=== PATIENT | female | born 1955 | race African-American/Black ===

== ENCOUNTER → 2018-01-11 | Outpatient (CLI) | payer OTHER ==
[2018-01-11] MEDS: IOHEXOL 240 MG/ML 50ML VIAL. PO (10:37)
[2018-01-11] MEDS: IOHEXOL 300 MG/ML 100ML VIAL. IV (10:38)
== END | disposition home or self-care (01) ==
LOC: CT 08:43
DX: C50.911 Malignant neoplasm of unspecified site of right female breast (principal); K57.30 Diverticulosis of large intestine without perforation or abscess without bleeding; R74.0 Nonspecific elevation of levels of transaminase and lactic acid dehydrogenase [LDH]; Z17.1 Estrogen receptor negative status [ER-]; Z90.11 Acquired absence of right breast and nipple
CPT/HCPCS: 71260; 74177; Q9966; Q9967

== ENCOUNTER → 2018-02-02 | Outpatient (CLI) | payer OTHER ==
[2018-02-02] MEDS: GADOBUTROL 10 MMOL/10 ML VIAL IV (10:14)
== END | disposition home or self-care (01) ==
LOC: MRI 09:10
DX: R74.8 Abnormal levels of other serum enzymes (principal); Z85.3 Personal history of malignant neoplasm of breast
CPT/HCPCS: 74183; A9585

== ENCOUNTER → 2018-08-10 | Outpatient (CLI) | payer OTHER ==
[2015-12-06 12:40] VITALS: BP 137/78
[~2018-08-10] MED LIST: CHOL2000 PO; FEXO180T81 PO; IOHEXOL 300 MG/ML 100ML VIAL. IV ONE; LORA10TA68 PO; OXYC-323 PO; POTA20TA12 PO; TRIA1CAP3 PO
--- NOTE | 2018-08-10 10:39 | RAD ---
CT of the chest with contrast, 08/10/2018: HISTORY: Follow-up right breast cancer with mastectomy Multidetector CT imaging was performed following an IV bolus injection of iodinated contrast material. Comparison is made to a study from 01/11/2018. There are scattered reticular opacities in the periphery of both lungs likely due to scarring. A more focal 1.9 cm mixed groundglass and solid opacity in the medial aspect of the right upper lobe is unchanged. There are subpleural parenchymal opacities in the anterior aspect of the right middle lobe with mild underlying traction bronchiectasis. These are unchanged and are likely related to previous radiation therapy. No new or enlarging pulmonary opacities are seen. There is no evidence of pleural fluid. The right breast is surgically absent. There is a surgical clip in the right axilla. No axillary adenopathy is seen. There is an unchanged 9 mm nodule in the anterior mediastinum. A pretracheal lymph node measuring 9 mm in short axis dimension is also unchanged. No definite mediastinal, hilar or internal mammary adenopathy is evident. There is a large calcified subcarinal lymph node. There is mild generalized cardiomegaly. There are scattered calcified aortic plaques as well as minimal coronary artery calcification. A 1.1 cm subcapsular low-density lesion in the lateral aspect of the right lobe of the liver is unchanged since 01/11/2018. There are mild scattered degenerative changes in the spine. IMPRESSION: 1. Moderate bilateral pleural/parenchymal scarring, including subpleural scarring in the right middle lobe due to previous radiation therapy. 2. Unchanged medial right upper lobe subpleural opacity also likely representing scarring. 3. No new chest abnormality is detected. PQRS Compliance Statement: One or more of the following individualized dose reduction techniques were utilized for this examination: 1. Automated exposure control 2. Adjustment of the mA and/or kV according to patient size 3. Use of iterative reconstruction technique Electronically signed by: Judson Bonilla MD (08/10/2018 10:35 AM) [facility]
== END | disposition home or self-care (01) ==
LOC: CT 08:14
PROVIDERS: ATTEND Internal Medicine Hematology & Oncology
DX: R91.8 Other nonspecific abnormal finding of lung field (principal); I25.10 Atherosclerotic heart disease of native coronary artery without angina pectoris; I51.7 Cardiomegaly; M47.894 Other spondylosis, thoracic region; Z85.3 Personal history of malignant neoplasm of breast; Z92.3 Personal history of irradiation; Z87.891 Personal history of nicotine dependence; Z90.11 Acquired absence of right breast and nipple
CPT/HCPCS: 71260; Q9967

== ENCOUNTER 2020-01-03 21:06 | Inpatient (IN) | payer OTHER ==
[~2020-01-03] VITALS: Ht 167.6 cm; Wt 91.7 kg
[~2020-01-03 21:06] MED LIST changes: -IOHEXOL 300 MG/ML 100ML VIAL. IV ONE; +OMEG1CAP6 PO; -OXYC-323 PO; +OXYC1TAB15 PO
--- NOTE | 2020-01-03 21:25 | PHYS DOC ---
Past Medical History Past Medical History: Cancer, Hypertension Additional Past Medical Histor: BREAST CANCER Past Surgical History: Hysterectomy, Tubal ligation, Other Additional Past Surgical Histo: RIGHT MASECTOMY, COLONOSCOPY Smoking Status: Former Smoker Alcohol Use: None Drug Use: None Adult General Chief Complaint Chief Complaint: NAUSEA/VOMITING/DIARRHA HPI HPI Patient is a 64 year old -[place] female who presents with complaint nausea and vomiting since 1:00 this afternoon. Emesis x3 with some epigastric abdominal pain. No fever, chills, diarrhea, constipation. No medications taken prior to arrival. History of gastritis and hypertension and breast cancer in remission x5 years. No sick contacts and no other history of intra-abdominal problems. Review of Systems Review of Systems All other systems were reviewed and found to be within normal limits, except as documented in this note. Current Medications Current Medications Current Medications Medications (Trade) Dose Ordered Sig/Amrit Start Time Stop Time Status Last Admin Dose Admin Diltiazem HCl (Cardizem Iv Push) 10 mg 1X ONCE 01/03/20 22:00 01/03/20 22:01 DC 01/03/20 21:54 10 MG Morphine Sulfate (Morphine Sulfate) 2 mg 1X ONCE 01/03/20 22:30 01/03/20 22:31 Multi-Ingredient Mouthwash/Gargle (Gi Cocktail) 20 ml 1X ONCE 01/03/20 22:00 01/03/20 22:01 DC 01/03/20 21:52 20 ML Ondansetron HCl (Zofran) 4 mg 1X ONCE 01/03/20 22:00 01/03/20 22:01 DC 01/03/20 21:53 4 MG Sodium Chloride 1,000 ml @ 1,000 mls/hr 1X ONCE 01/03/20 21:30 01/03/20 22:29 01/03/20 21:52 1,000 MLS/HR Allergies Allergies Allergies Coded Allergies Type Severity Reaction Last Updated Verified penicillin Allergy Severe Anaphylaxis 12/06/15 Yes pineapple Allergy Severe SWELLING IN MOUTH 12/06/15 Yes Physical Exam Physical Exam Constitutional: Well developed, well nourished, no acute distress, non-toxic appearance. [] HENT: Normocephalic, atraumatic, bilateral external ears normal, oropharynx moist, no oral exudates, nose normal. [] Eyes: PERRLA, EOMI, conjunctiva normal, no discharge. [] Neck: Normal range of motion, no tenderness, supple, no stridor. [] Cardiovascular:Heart rate regular rhythm, no murmur [] Lungs & Thorax: Bilateral breath sounds clear to auscultation [] Abdomen: Bowel sounds normal, soft, mild epigastric TTP, no masses, no pulsatile masses. [] Skin: Warm, dry, no erythema, no rash. [] Back: No tenderness, no CVA tenderness. [] Extremities: No tenderness, no cyanosis, no clubbing, ROM intact, no edema. [] Neurologic: Alert and oriented X 3, normal motor function, normal sensory function, no focal deficits noted. [] Psychologic: Affect normal, judgement normal, mood normal. [] Current Patient Data Vital Signs Vital Signs Date Time Temp Pulse Resp B/P (MAP) Pulse Ox O2 Delivery O2 Flow Rate FiO2 01/03/20 21:54 130 139/86 Lab Values Laboratory Tests Test 01/03/20 21:25 White Blood Count 17.8 x10^3/uL (4.0-11.0) H Red Blood Count 6.59 x10^6/uL (3.50-5.40) H Hemoglobin 15.0 g/dL (12.0-15.5) Hematocrit 46.8 % (36.0-47.0) Mean Corpuscular Volume 71 fL (79-100) L Mean Corpuscular Hemoglobin 23 pg (25-35) L Mean Corpuscular Hemoglobin Concent 32 g/dL (31-37) Red Cell Distribution Width 16.4 % (11.5-14.5) H Platelet Count 293 x10^3/uL (140-400) Neutrophils (%) (Auto) 92 % (31-73) H Lymphocytes (%) (Auto) 6 % (24-48) L Monocytes (%) (Auto) 2 % (0-9) Eosinophils (%) (Auto) 0 % (0-3) Basophils (%) (Auto) 0 % (0-3) Neutrophils # (Auto) 16.4 x10^3/uL (1.8-7.7) H Lymphocytes # (Auto) 1.0 x10^3/uL (1.0-4.8) Monocytes # (Auto) 0.3 x10^3/uL (0.0-1.1) Eosinophils # (Auto) 0.0 x10^3/uL (0.0-0.7) Basophils # (Auto) 0.0 x10^3/uL (0.0-0.2) Segmented Neutrophils % 72 % (35-66) H Band Neutrophils % 12 % (0-9) H Lymphocytes % 10 % (24-48) L Monocytes % 6 % (0-10) Toxic Granulation Slight Toxic Vacuolation Slight Platelet Estimate Adequate (ADEQUATE) Polychromasia Slight Prothrombin Time 14.1 SEC (11.7-14.0) H Prothrombin Time INR 1.1 (0.8-1.1) Activated Partial Thromboplast Time 33 SEC (24-38) Sodium Level 142 mmol/L (136-145) Potassium Level 3.6 mmol/L (3.5-5.1) Chloride Level 101 mmol/L (98-107) Carbon Dioxide Level 28 mmol/L (21-32) Anion Gap 13 (6-14) Blood Urea Nitrogen 11 mg/dL (7-20) Creatinine 0.9 mg/dL (0.6-1.0) Estimated GFR (Cockcroft-Gault) 76.5 BUN/Creatinine Ratio 12 (6-20) Glucose Level 146 mg/dL (70-99) H Calcium Level 9.1 mg/dL (8.5-10.1) Total Bilirubin 1.0 mg/dL (0.2-1.0) Aspartate Amino Transferase (AST) 37 U/L (15-37) Alanine Aminotransferase (ALT) 44 U/L (14-59) Alkaline Phosphatase 119 U/L (46-116) H Troponin I Quantitative 0.036 ng/mL (0.000-0.055) Total Protein 7.0 g/dL (6.4-8.2) Albumin 3.5 g/dL (3.4-5.0) Albumin/Globulin Ratio 1.0 (1.0-1.7) Lipase 62 U/L (73-393) L Laboratory Tests 01/03/20 21:25 Laboratory Tests 01/03/20 21:25 EKG EKG EKG appears to show atrial fibrillation with a heart rate of 143. [] Radiology/Procedures Radiology/Procedures [] Course & Med Decision Making Course & Med Decision Making Pertinent Labs and Imaging studies reviewed. (See chart for details) 8: Patient is seen for nausea and vomiting. Ordered IV fluids and will check labs and give GI cocktail. Patient's EKG is performed and appears to show atrial fibrillation with a heart rate of 143 so she will receive 10 mg of Cardizem. She has no reported history of atrial fibrillation. 2220: Patient's work-up is complete except chest x-ray which I will follow-up on; she appears to have atrial fibrillation with RVR. She was given a 10 mg bolus of Cardizem with some improvement in rate but it is starting to increase again so we will start a Cardizem drip on her. She will be admitted to the [facility] and will consult cardiology. Sundar for nausea. Dragon Disclaimer Dragon Disclaimer This electronic medical record was generated, in whole or in part, using a voice recognition dictation system. Departure Departure Impression: Primary Impression: Atrial fibrillation with RVR Additional Impression: Nausea & vomiting Disposition: ADMITTED INPATIENT Admitting Physician: GOLDIE Condition: STABLE Referrals: LEVI KEVIN DO (PCP) Problem Qualifiers RON OLMOS DO Jan 03, 2020 21:25
[2020-01-03] MEDS ORDERED: IV NORMAL SALINE 1000ML BAG 1,000 ML IV ONE (21:30)
[2020-01-03 21:33] LABS: BASO % 0 % (0-3); EOS % 0 % (0-3); HEMATOCRIT 46.8 % (36.0-47.0); LYMPH % 6 % (24-48); MEAN CORPUSCULAR HEMOGLOBIN 23 pg (25-35); MEAN CORPUSCULAR HGB CONC 32 g/dL (31-37); MEAN CORPUSCULAR VOLUME 71 fL (79-100); MONO # 0.3 x10^3/uL (0.0-1.1); MONO % 2 % (0-9); NEUT # 16.4 x10^3/uL (1.8-7.7); NEUT % 92 % (31-73); PLATELET COUNT 293 x10^3/uL (140-400); RED BLOOD COUNT 6.59 x10^6/uL (3.50-5.40); RED CELL DISTRIBUTION WIDTH 16.4 % (11.5-14.5); WHITE BLOOD COUNT 17.8 x10^3/uL (4.0-11.0)
[2020-01-03 21:41] LABS: CALCIUM 9.1 mg/dL (8.5-10.1); CREATININE 0.9 mg/dL (0.6-1.0); GFR 76.5; POTASSIUM 3.6 mmol/L (3.5-5.1)
[2020-01-03 21:48] LABS: ALBUMIN 3.5 g/dL (3.4-5.0)
[2020-01-03 21:52] LABS: % BANDS 12 % (0-9); % LYMPHS 10 % (24-48); % MONOS 6 % (0-10); % SEGS 72 % (35-66)
[2020-01-03 21:54] LABS: PLT ESTIMATE ADEQUATE (ADEQUATE); POLYCHROMASIA SLIGHT; TOXIC GRANULATION SLIGHT; TOXIC VACUOLATION SLIGHT
[2020-01-03] MEDS ORDERED: LIDO:MAALOX 1:1 20 ML SINGLE DOSE. SWSW ONE (22:00)
[2020-01-03] MEDS ORDERED: dilTIAZem IV PUSH 25 MG/5 ML VIAL IVP ONE (22:00)
[2020-01-03] MEDS ORDERED: ONDANSETRON PF 4 MG/2 ML VIAL. IVP ONE (22:00)
[2020-01-03 22:13] LABS: PROTHROMBIN TIME PATIENT 14.1 SEC (11.7-14.0)
[2020-01-03] MEDS ORDERED: MORPHINE SULFATE 2 MG/ML VIAL. IV ONE (22:30)
[2020-01-03] MEDS: dilTIAZem INJ 125 MG in IV NORMAL SALINE 100ML 100 ML IV PRN ×2 (22:32→22:34)
--- NOTE | 2020-01-03 22:51 | RAD ---
Single view chest dated 01/03/2020. Comparison made to 08/10/2018. Clinical data indication: Atrial fibrillation. FINDINGS: Single upright portable exam performed. Heart size is mildly enlarged, stable. There is elevation of right hemidiaphragm. Mildly prominent interstitial markings at both lung bases, unchanged. There is also some groundglass nodularity at the right mid zone and perihilar region, similar. No apparent pleural effusion or pneumothorax. IMPRESSION: 1. No acute radiographic abnormality. Bibasilar interstitial changes with groundglass nodular opacity in the right lung, similar to recent exam. Electronically signed by: Edwin Hernandez MD (01/03/2020 10:48 PM) [id number]
[2020-01-03 23:14] VITALS: BP 140/89
[2020-01-03] MEDS ORDERED: OMEP20CA16 PO (23:40)
[2020-01-03] MEDS ORDERED: POTA10TA12 PO (23:43)
[2020-01-03] MEDS: IV NORMAL SALINE 1000ML BAG 1,000 ML IV SCH (23:51)
[2020-01-04] VITALS (11 sets, daily range): BP systolic 96–175; BP diastolic 78–104
[2020-01-04] MEDS: ONDANSETRON PF 4 MG/2 ML VIAL. IV PRN ×3 (03:53→20:32)
[2020-01-04 04:05] LABS: BILIRUBIN,URINE SMALL (NEG); CLARITY,URINE CLEAR; COLOR,URINE YELLOW; NITRITE,URINE NEGATIVE (NEG); PH,URINE 6.5 (<5.0-8.0); PROTEIN,URINE 30 mg/dL (NEG-TRACE)
[2020-01-04 04:12] LABS: BACTERIA,URINE FEW /HPF (0-FEW); RBC,URINE RARE /HPF (0-2); SQUAMOUS EPITHELIAL CELL,UR FEW /LPF; WBC,URINE RARE /HPF (0-4)
--- NOTE | 2020-01-04 06:18 | EKG ---
[facility] [address] [place] [address] Test Date: 2020-01-03 Test Time: 21:30:18 Pat Name: AGNES BRAVO Department: Room: Gender: F Health Data Analyst: : 1955 Requested By: RON OLMOS Order Number: [id number] Reading MD: Measurements Intervals [place] Rate: 143 P: 0 NM: 182 QRS: -45 QRSD: 86 T: 174 QT: 228 QTc: 356 Interpretive Statements SINUS TACHYCARDIA ABNORMAL LEFT AXIS DEVIATION R-S TRANSITION ZONE IN V LEADS DISPLACED TO THE LEFT LEFT ANTERIOR FASCICULAR BLOCK INCOMPLETE RIGHT BUNDLE BRANCH BLOCK QRS(T) CONTOUR ABNORMALITY CONSIDER ANTEROSEPTAL MYOCARDIAL DAMAGE T ABNORMALITY IN HIGH LATERAL LEADS ABNORMAL ECG No previous ECG available for comparison
[2020-01-04 08:46] LABS: HEMATOCRIT 44.1 % (36.0-47.0); HEMOGLOBIN 13.6 g/dL (12.0-15.5); RED BLOOD COUNT 6.23 x10^6/uL (3.50-5.40); RED CELL DISTRIBUTION WIDTH 16.5 % (11.5-14.5); WHITE BLOOD COUNT 14.8 x10^3/uL (4.0-11.0)
[2020-01-04 08:52] LABS: CALCIUM 8.5 mg/dL (8.5-10.1); CREATININE 0.8 mg/dL (0.6-1.0); GFR 87.7; MAGNESIUM 1.6 mg/dL (1.8-2.4); POTASSIUM 3.6 mmol/L (3.5-5.1)
[2020-01-04] MEDS: CETIRIZINE HCL 10 MG TABLET. PO SCH (10:00)
[2020-01-04] MEDS ORDERED: TRIAMTERENE/HCTZ 37.5/25MG TABLET. PO SCH (10:00)
[2020-01-04] MEDS ORDERED: MAGNESIUM SULFATE 2GM 50 ML IV ONE (10:15)
[2020-01-04] MEDS ORDERED: METOPROLOL TART IMMED RELEASE 25 MG TABLET. PO ONE (10:15)
[2020-01-04] MEDS ORDERED: ASPIRIN ENTERIC COATED 325 MG TABLET.DR. PO ONE (10:15)
[2020-01-04] MEDS: OMEGA-3 FATTY ACIDS/FISH OIL 1,000 MG CAPSULE. PO SCH (10:37)
[2020-01-04] MEDS: PANTOPRAZOLE 40 MG TABLET.DR. PO SCH (10:37)
[2020-01-04 10:43] LABS: CHOLESTEROL/HDL RATIO 3.1
--- NOTE | 2020-01-04 11:27 | PDOC2 ---
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 Reports no diarrhea but her vomiting started 1 hour after eating su and eggs in the morning since then she vomiting 3 more times with the last one when she was in ED and was given zofran and no vomiting overnight.Her abd pain is diffuse and mainly occurred after retching in the morning yesterday. Denies any fever or chills. In the last week she has been feeling more fatigue, tired and actually having DERAS. Denies any chest pain or sensation of palpitations or frequent dizziness. Denies any recent falls or injury. She lives alone but has been noted before for snoring but denies any daytime somnolence and sleeps about 8-10 hours a night. No insomnia no anxiety or depression. Denies any prior hx of arrhythmia, AMILCAR, CAD, VTE or CVA. She does take maxide for her HTN and was cut in half within the last week due to her fatigue with her PCP thinking it maybe due to low K but denies any cramps and was placed back to full dose due to BP was going up. Upon admission in ED she was noted with AFIB RVR and treated with cardizem drip. Denies any exertional CP and no significant wt loss. Appetite has been good till yesterday. No new meds. No leg swelling or pain. PAST MEDICAL HISTORY Cardiovascular: HTN, Other (chronic lymphedema to right arm) Pulmonary: Other (Moderate bilateral pleural/parenchymal scarring, including subpleural scarring in the right middle lobe due to previous radiation therapy.Unchanged medial right upper lobe subpleural opacity also likely representing scarring per CT chest 08/10/2018 ) CENTRAL NERVOUS SYSTEM: Other (No pertinent history) GI: Diverticulosis, GERD Heme/Onc: No pertinent hx Hepatobiliary: No pertinent hx Psych: No pertinent hx Musculoskeletal: Osteoarthritis Rheumatologic: No pertinent hx Infectious disease: No pertinent hx ENT: Allergic Rhinitis Renal/: No pertinent hx Endocrine: No pertinent hx Dermatology: No pertinent hx PAST SURGICAL HISTORY Past Surgical History: Mastectomy (right with lymph node dissection also with chemo and radiation, been in remission since ), Other (portacath placement and removal 2016) FAMILY HISTORY Family History: Other (sister with AFIB at 65) SOCIAL HISTORY Smoke: Quit (45 pk yr quit 2014) ALCOHOL: rare Drugs: None Lives: Alone CURRENT MEDICATIONS CURRENT MEDICATIONS Current Medications Medications (Trade) Dose Ordered Sig/Amrit Route PRN Reason Start Time Stop Time Status Last Admin Dose Admin Sodium Chloride 1,000 ml @ 1,000 mls/hr 1X ONCE IV 01/03/20 21:30 01/03/20 22:29 DC 01/03/20 21:52 Ondansetron HCl (Zofran) 4 mg 1X ONCE IVP 01/03/20 22:00 01/03/20 22:01 DC 01/03/20 21:53 Multi-Ingredient Mouthwash/Gargle (Gi Cocktail) 20 ml 1X ONCE SWSW 01/03/20 22:00 01/03/20 22:01 DC 01/03/20 21:52 Diltiazem HCl (Cardizem Iv Push) 10 mg 1X ONCE IVP 01/03/20 22:00 01/03/20 22:01 DC 01/03/20 21:54 Morphine Sulfate (Morphine Sulfate) 2 mg 1X ONCE IV 01/03/20 22:30 01/03/20 22:31 DC 01/03/20 22:21 Diltiazem HCl 125 mg/Sodium Chloride 125 ml @ 5 mls/hr CONT PRN IV SEE I/O RECORD 01/03/20 22:30 01/04/20 10:17 DC 01/03/20 22:34 Ondansetron HCl (Zofran) 4 mg PRN Q8HRS PRN IV NAUSEA/VOMITING 1ST CHOICE 01/03/20 22:30 01/04/20 22:29 01/04/20 03:53 Sodium Chloride 1,000 ml @ 75 mls/hr [id number] IV 01/03/20 23:00 01/04/20 22:59 01/03/20 23:51 Fish Oil (Fish Oil) 1,000 mg DAILY PO 01/04/20 10:00 01/04/20 10:37 Pantoprazole Sodium (Protonix) 40 mg DAILYAC PO 01/04/20 11:30 3/18/20 10:37 Metoprolol Tartrate (Lopressor) 25 mg 1X ONCE PO 01/04/20 10:15 01/04/20 10:32 DC 01/04/20 10:37 Aspirin (Ecotrin) 325 mg 1X ONCE PO 01/04/20 10:15 01/04/20 10:32 DC 01/04/20 10:37 ALLERGIES ALLERGIES: Coded Allergies: penicillin (Verified Allergy, Severe, Anaphylaxis, 12/06/15) pineapple (Verified Allergy, Severe, SWELLING IN MOUTH, 12/06/15) ROS Review of System 14 point ROS evaluated with pertinent positives noted per HPI PHYSICAL EXAM General: Alert, Oriented X3, Cooperative, No acute distress HEENT: Atraumatic, Mucous membr. moist/pink Lungs: Clear to auscultation, Normal air movement Heart: Other (AFIB RVR) Abdomen: Soft, Other (mild diffuse tenderness) Extremities: No cyanosis, No edema Skin: No breakdown, No significant lesion Neuro: Normal speech, Sensation intact Psych/Mental Status: Mental status NL, Mood NL MUSCULOSKELETAL: Osteoarthritic changes both hands VITALS/I&O VITALS/I&O: Vital Signs Date Time Temp Pulse Resp B/P (MAP) Pulse Ox O2 Delivery O2 Flow Rate FiO2 01/04/20 10:37 94 117/87 01/04/20 08:00 Room Air 01/04/20 07:20 98.1 18 91 98.1 I & O 01/03/20 01/03/20 01/04/20 15:00 23:00 07:00 Intake Total 1000 ml 120 ml Output Total 200 ml Balance 1000 ml -80 ml LABS Lab: Laboratory Tests Test 01/03/20 21:25 01/04/20 00:01 01/04/20 03:45 01/04/20 06:12 White Blood Count 17.8 x10^3/uL (4.0-11.0) H 14.8 x10^3/uL (4.0-11.0) H Red Blood Count 6.59 x10^6/uL (3.50-5.40) H 6.23 x10^6/uL (3.50-5.40) H Hemoglobin 15.0 g/dL (12.0-15.5) 13.6 g/dL (12.0-15.5) Hematocrit 46.8 % (36.0-47.0) 44.1 % (36.0-47.0) Mean Corpuscular Volume 71 fL (79-100) L 71 fL (79-100) L Mean Corpuscular Hemoglobin 23 pg (25-35) L 22 pg (25-35) L Mean Corpuscular Hemoglobin Concent 32 g/dL (31-37) 31 g/dL (31-37) Red Cell Distribution Width 16.4 % (11.5-14.5) H 16.5 % (11.5-14.5) H Platelet Count 293 x10^3/uL (140-400) 283 x10^3/uL (140-400) Neutrophils (%) (Auto) 92 % (31-73) H Lymphocytes (%) (Auto) 6 % (24-48) L Monocytes (%) (Auto) 2 % (0-9) Eosinophils (%) (Auto) 0 % (0-3) Basophils (%) (Auto) 0 % (0-3) Neutrophils # (Auto) 16.4 x10^3/uL (1.8-7.7) H Lymphocytes # (Auto) 1.0 x10^3/uL (1.0-4.8) Monocytes # (Auto) 0.3 x10^3/uL (0.0-1.1) Eosinophils # (Auto) 0.0 x10^3/uL (0.0-0.7) Basophils # (Auto) 0.0 x10^3/uL (0.0-0.2) Segmented Neutrophils % 72 % (35-66) H Band Neutrophils % 12 % (0-9) H Lymphocytes % 10 % (24-48) L Monocytes % 6 % (0-10) Toxic Granulation Slight Toxic Vacuolation Slight Platelet Estimate Adequate (ADEQUATE) Polychromasia Slight Prothrombin Time 14.1 SEC (11.7-14.0) H Prothrombin Time INR 1.1 (0.8-1.1) Activated Partial Thromboplast Time 33 SEC (24-38) Sodium Level 142 mmol/L (136-145) 142 mmol/L (136-145) Potassium Level 3.6 mmol/L (3.5-5.1) 3.6 mmol/L (3.5-5.1) Chloride Level 101 mmol/L (98-107) 103 mmol/L (98-107) Carbon Dioxide Level 28 mmol/L (21-32) 27 mmol/L (21-32) Anion Gap 13 (6-14) 12 (6-14) Blood Urea Nitrogen 11 mg/dL (7-20) 12 mg/dL (7-20) Creatinine 0.9 mg/dL (0.6-1.0) 0.8 mg/dL (0.6-1.0) Estimated GFR (Cockcroft-Gault) 76.5 87.7 BUN/Creatinine Ratio 12 (6-20) Glucose Level 146 mg/dL (70-99) H 130 mg/dL (70-99) H Calcium Level 9.1 mg/dL (8.5-10.1) 8.5 mg/dL (8.5-10.1) Total Bilirubin 1.0 mg/dL (0.2-1.0) Aspartate Amino Transferase (AST) 37 U/L (15-37) Alanine Aminotransferase (ALT) 44 U/L (14-59) Alkaline Phosphatase 119 U/L (46-116) H Troponin I Quantitative 0.036 ng/mL (0.000-0.055) 0.049 ng/mL (0.000-0.055) 0.033 ng/mL (0.000-0.055) OP-Rre-S-Type Natriuretic Peptide 3429 pg/mL (0-124) H Total Protein 7.0 g/dL (6.4-8.2) Albumin 3.5 g/dL (3.4-5.0) Albumin/Globulin Ratio 1.0 (1.0-1.7) Lipase 62 U/L (73-393) L Urine Collection Type Unknown Urine Color Yellow Urine Clarity Clear Urine pH 6.5 (<5.0-8.0) Urine Specific [place] 1.020 (1.000-1.030) Urine Protein 30 mg/dL (NEG-TRACE) Urine Glucose (UA) Negative mg/dL (NEG) Urine Ketones (Stick) 15 mg/dL (NEG) Urine Blood Negative (NEG) Urine Nitrite Negative (NEG) Urine Bilirubin Small (NEG) Urine Urobilinogen Dipstick 1.0 mg/dL (0.2 mg/dL) Urine Leukocyte Esterase Negative (NEG) Urine RBC Rare /HPF (0-2) Urine WBC Rare /HPF (0-4) Urine Squamous Epithelial Cells Few /LPF Urine Bacteria Few /HPF (0-FEW) Urine Mucus Mod /LPF Magnesium Level 1.6 mg/dL (1.8-2.4) L Triglycerides Level 51 mg/dL (0-150) Cholesterol Level 107 mg/dL (0-200) LDL Cholesterol, Calculated 62 mg/dL (0-100) VLDL Cholesterol, Calculated 10 mg/dL (0-40) Non-HDL Cholesterol Calculated 72 mg/dL (0-129) HDL Cholesterol 35 mg/dL (40-60) L Cholesterol/HDL Ratio 3.1 Thyroid Stimulating Hormone (TSH) 2.520 uIU/mL (0.358-3.74) Laboratory Tests 01/03/20 21:25 01/04/20 06:12 Laboratory Tests 01/03/20 21:25 01/04/20 06:12 ASSESSMENT/PLAN ASSESSMENT/PLAN 1. AFIB RVR: rate improving. New onset. 2. DERAS/fatigue: potentially from AFIB but ischemic is also part of the different ial, CP free 3. HTN: controlled and on home maxide 4. Leukocytosis: per PCP 5. Hyperglycemia 6. Vomiting: started 1 hr post eggs/su. x4 episodes yesterday nothing further overnight with abd pain occurring 7. Hx of diverticulosis and GERD: takes prilosec at home 8. Hx of breast CA with radical right mastectomy/chemo radiation 2014 9. Family hx of AFIB: sister noted at 65 yo Recommendations 1. TSH, lipids, A1C TTE today 2. Replace Mg. DC cardizem IV lopressor and start on metoprolol PO. ECASA x1. Will continue to optimize rate control. Volume repleted with IVF. 3. Await TTE result then will consider anticoagulation for potential outpt cardioversion. 4. She will also need stress test as an outpt. 5. DC maxide to accomodate AV mayi blocking agents. 6. Will obtain nocturnal desat study and check need for AMILCAR w/u 7. If GI symptoms restart then consider imaging, defer to PCP NEGRITA GARCIA MD 01/04/20 1526: CARDIAC CONSULT ASSESSMENT/PLAN ASSESSMENT/PLAN Patient seen and examined New-onset of atrial fibrillation with elevated rate. We will change to oral metoprolol for rate control with monitoring. Dyspnea on exertion. No chest pain. We'll check echocardiogram. Hypertension. Controlled on present medications. History of breast cancer status post right mastectomy with chemotherapy and radiation treatment in 2015. Thank you for allowing us to participate in the care of your patient. JESSICA JOSUE APRN Jan 04, 2020 11:27 NEGRITA GARCIA MD Jan 04, 2020 15:26
--- NOTE | 2020-01-04 11:43 | HP ---
ADMIT DATE: 01/04/2020 CHIEF COMPLAINT: Nausea, vomiting, diarrhea. HISTORY OF PRESENT ILLNESS: The patient is a pleasant 64-year-old female who presented to the ER with nausea, vomiting, diarrhea. This started at 1:00 yesterday. She had 3 emesis before she got to the ER. Because of that, now she is having some abdominal pain as well. While in the ER, she was noted to be in AFib with RVR. I discussed the case with ER physician. We have admitted the patient with consultation to Cardiology and I am consulting GI as well. PAST MEDICAL HISTORY: 1. Breast cancer. 2. Mastectomy. 3. Hysterectomy. 4. Tubal ligation. 5. Colonoscopy. ALLERGIES: PINEAPPLE and PENICILLIN. FAMILY HISTORY: Coronary artery disease. SOCIAL HISTORY: She does not drink, smoke or take drugs. MEDICATIONS: Reviewed, please refer to MRAD. REVIEW OF SYSTEMS: GENERAL: No history of weight change, weakness or fevers. SKIN: No bruising, hair changes or rashes. EYES: No blurred, double or loss of vision. NOSE AND THROAT: No history of nosebleeds, hoarseness or sore throat. HEART: No history of palpitations, chest pain or shortness of breath on exertion. LUNGS: Denies cough, hemoptysis, wheezing or shortness of breath. GASTROINTESTINAL: Denies changes in appetite, nausea, vomiting, diarrhea or constipation. She complains of abdominal pain, although she thinks it is getting better. She thinks it is because of her vomiting. GENITOURINARY: No history of frequency, urgency, hesitancy or nocturia. NEUROLOGIC: Denies history of numbness, tingling, tremor or weakness. PSYCHIATRIC: No history of panic, anxiety or depression. ENDOCRINE: No history of heat or cold intolerance, polyuria or polydipsia. EXTREMITIES: Denies muscle weakness, joint pain, pain on walking or stiffness. PHYSICAL EXAMINATION: VITALS: Within normal limits and are stable. GENERAL: No apparent distress. Alert and oriented. HEENT: Normal cephalic atraumatic, external auditory canals are patent. EYES: Extraocular muscles are intact, pupils are equally round and reactive to light and accommodation. MUSCULOSKELETAL: Well developed, well nourished, good range of motion. ENDOCRINE: No thyromegaly was palpated. LYMPHATICS: No cervical chain or axillary nodes were noted. HEMATOPOIETIC: No bruising. NECK: Supple, no JVD, no thyromegaly was noted. LUNGS: Clear to auscultation in all lung veras without rhonchi or wheezing. HEART: RRR, S1, S2 present. Peripheral pulses intact, no obvious murmurs were noted. ABDOMEN: Slightly distended. Slightly decreased bowel sounds. Slightly tender. No organomegaly, normal bowel sounds. EXTREMITIES: Without any cyanosis, clubbing, or edema. Pedal pulses intact, Homans sign is negative. NEUROLOGIC: Normal speech, normal tone. A & O x3. Moves all extremities. No obvious focal deficits. PSYCHIATRIC: Normal affect, normal mood. Stable. SKIN: No ulcerations or rashes, good skin turgor, no jaundice. VASCULAR: Good capillary refill, neurovascular bundle appears to be intact. LABORATORY DATA: White count 17 last night and it went down to 14.8 today, hemoglobin 13.6, platelets 283. Electrolytes are normal. Glucose is 130. Troponin slightly high at 0.03. Urinalysis negative. INR 1.1. Chest x-ray, no acute disease. ASSESSMENT AND PLAN: Atrial fibrillation with rapid ventricular response. Nausea, vomiting, diarrhea. Suspect possible gastroenteritis. We will go ahead and consult Cardiology and GI. Cardiac monitoring. We have started Cardizem drip. We will start anticoagulation if Cardiology agrees. Serial enzymes. Serial EKGs. Home meds. DVT prophylaxis. Full code. SEJAL MCCLELLAN DO DR: ADAM/jaiden JOB#: [id number] / [id number]
--- NOTE | 2020-01-04 11:51 | PDOC2 ---
GI CONSULT Reason For Consult: n/v/d? gastroenteritis? HPI: HPI: 64 y/o female w/ sudden onset of n/v after eating su and eggs yesterday. Abdomen feels sore now from retching. No diarrhea. Feeling better. Admitted w/ A Fib RVR. H/o acid reflux on omeprazole QD since last year. Pills and food might have "sat" in chest/epigastrium yesterday but otherwise no h/o dysphagia. No hematemesis, hematochezia, or melena. No weight loss. No constipation. No previous EGD. [place] colon[place] [address] Stapleton w/ diverticulosis, no polyps. Diverticulosis noted on past imaging (noted in colon and duodenum). 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 No GB, pancreas, or PUD history. PMH: PMH: HTN, allergic rhinitis tubal ligation, hysterectomy, breast biopsy, right mastectomy, chemo/rad, portacath placement/removal FH: Family History: Cancer (pancreatic - mother) Social History: Smoke: Quit ALCOHOL: rare Drugs: None ROS: GEN: Denies fevers, chills, sweats HEENT: Denies blurred vision, sore throat CV: Denies chest pain RESP: Denies shortness of air, cough GI: Per HPI : Denies hematuria, dysuria ENDO: Denies weight changes NEURO: Denies confusion, dizziness MSK: Denies weakness, joint pain/swelling SKIN: Denies jaundice, pruritus Vitals: Vitals: Vital Signs Date Time Temp Pulse Resp B/P (MAP) Pulse Ox O2 Delivery O2 Flow Rate FiO2 01/04/20 10:37 94 117/87 01/04/20 08:00 Room Air 01/04/20 07:20 98.1 18 91 98.1 Labs: Labs: Laboratory Tests Test 01/03/20 21:25 01/04/20 00:01 01/04/20 03:45 01/04/20 06:12 White Blood Count 17.8 x10^3/uL (4.0-11.0) 14.8 x10^3/uL (4.0-11.0) Red Blood Count 6.59 x10^6/uL (3.50-5.40) 6.23 x10^6/uL (3.50-5.40) Hemoglobin 15.0 g/dL (12.0-15.5) 13.6 g/dL (12.0-15.5) Hematocrit 46.8 % (36.0-47.0) 44.1 % (36.0-47.0) Mean Corpuscular Volume 71 fL (79-100) 71 fL (79-100) Mean Corpuscular Hemoglobin 23 pg (25-35) 22 pg (25-35) Mean Corpuscular Hemoglobin Concent 32 g/dL (31-37) 31 g/dL (31-37) Red Cell Distribution Width 16.4 % (11.5-14.5) 16.5 % (11.5-14.5) Platelet Count 293 x10^3/uL (140-400) 283 x10^3/uL (140-400) Neutrophils (%) (Auto) 92 % (31-73) Lymphocytes (%) (Auto) 6 % (24-48) Monocytes (%) (Auto) 2 % (0-9) Eosinophils (%) (Auto) 0 % (0-3) Basophils (%) (Auto) 0 % (0-3) Neutrophils # (Auto) 16.4 x10^3/uL (1.8-7.7) Lymphocytes # (Auto) 1.0 x10^3/uL (1.0-4.8) Monocytes # (Auto) 0.3 x10^3/uL (0.0-1.1) Eosinophils # (Auto) 0.0 x10^3/uL (0.0-0.7) Basophils # (Auto) 0.0 x10^3/uL (0.0-0.2) Segmented Neutrophils % 72 % (35-66) Band Neutrophils % 12 % (0-9) Lymphocytes % 10 % (24-48) Monocytes % 6 % (0-10) Toxic Granulation Slight Toxic Vacuolation Slight Platelet Estimate Adequate (ADEQUATE) Polychromasia Slight Prothrombin Time 14.1 SEC (11.7-14.0) Prothromb Time International Ratio 1.1 (0.8-1.1) Activated Partial Thromboplast Time 33 SEC (24-38) Sodium Level 142 mmol/L (136-145) 142 mmol/L (136-145) Potassium Level 3.6 mmol/L (3.5-5.1) 3.6 mmol/L (3.5-5.1) Chloride Level 101 mmol/L (98-107) 103 mmol/L (98-107) Carbon Dioxide Level 28 mmol/L (21-32) 27 mmol/L (21-32) Anion Gap 13 (6-14) 12 (6-14) Blood Urea Nitrogen 11 mg/dL (7-20) 12 mg/dL (7-20) Creatinine 0.9 mg/dL (0.6-1.0) 0.8 mg/dL (0.6-1.0) Estimated GFR (Cockcroft-Gault) 76.5 87.7 BUN/Creatinine Ratio 12 (6-20) Glucose Level 146 mg/dL (70-99) 130 mg/dL (70-99) Calcium Level 9.1 mg/dL (8.5-10.1) 8.5 mg/dL (8.5-10.1) Total Bilirubin 1.0 mg/dL (0.2-1.0) Aspartate Amino Transf (AST/SGOT) 37 U/L (15-37) Alanine Aminotransferase (ALT/SGPT) 44 U/L (14-59) Alkaline Phosphatase 119 U/L (46-116) Troponin I Quantitative 0.036 ng/mL (0.000-0.055) 0.049 ng/mL (0.000-0.055) 0.033 ng/mL (0.000-0.055) SS-Fpg-Q-Type Natriuretic Peptide 3429 pg/mL (0-124) Total Protein 7.0 g/dL (6.4-8.2) Albumin 3.5 g/dL (3.4-5.0) Albumin/Globulin Ratio 1.0 (1.0-1.7) Lipase 62 U/L (73-393) Urine Collection Type Unknown Urine Color Yellow Urine Clarity Clear Urine pH 6.5 (<5.0-8.0) Urine Specific [place] 1.020 (1.000-1.030) Urine Protein 30 mg/dL (NEG-TRACE) Urine Glucose (UA) Negative mg/dL (NEG) Urine Ketones (Stick) 15 mg/dL (NEG) Urine Blood Negative (NEG) Urine Nitrite Negative (NEG) Urine Bilirubin Small (NEG) Urine Urobilinogen Dipstick 1.0 mg/dL (0.2 mg/dL) Urine Leukocyte Esterase Negative (NEG) Urine RBC Rare /HPF (0-2) Urine WBC Rare /HPF (0-4) Urine Squamous Epithelial Cells Few /LPF Urine Bacteria Few /HPF (0-FEW) Urine Mucus Mod /LPF Magnesium Level 1.6 mg/dL (1.8-2.4) Triglycerides Level 51 mg/dL (0-150) Cholesterol Level 107 mg/dL (0-200) LDL Cholesterol, Calculated 62 mg/dL (0-100) VLDL Cholesterol, Calculated 10 mg/dL (0-40) Non-HDL Cholesterol Calculated 72 mg/dL (0-129) HDL Cholesterol 35 mg/dL (40-60) Cholesterol/HDL Ratio 3.1 Thyroid Stimulating Hormone (TSH) 2.520 uIU/mL (0.358-3.74) Allergies: Coded Allergies: penicillin (Verified Allergy, Severe, Anaphylaxis, 12/06/15) pineapple (Verified Allergy, Severe, SWELLING IN MOUTH, 12/06/15) Medications: Current Medications Medications (Trade) Dose Ordered Sig/Amrit Route PRN Reason Start Time Stop Time Status Last Admin Dose Admin Sodium Chloride 1,000 ml @ 1,000 mls/hr 1X ONCE IV 01/03/20 21:30 01/03/20 22:29 DC 01/03/20 21:52 Ondansetron HCl (Zofran) 4 mg 1X ONCE IVP 01/03/20 22:00 01/03/20 22:01 DC 01/03/20 21:53 Multi-Ingredient Mouthwash/Gargle (Gi Cocktail) 20 ml 1X ONCE SWSW 01/03/20 22:00 01/03/20 22:01 DC 01/03/20 21:52 Diltiazem HCl (Cardizem Iv Push) 10 mg 1X ONCE IVP 01/03/20 22:00 01/03/20 22:01 DC 01/03/20 21:54 Morphine Sulfate (Morphine Sulfate) 2 mg 1X ONCE IV 01/03/20 22:30 01/03/20 22:31 DC 01/03/20 22:21 Diltiazem HCl 125 mg/Sodium Chloride 125 ml @ 5 mls/hr CONT PRN IV SEE I/O RECORD 01/03/20 22:30 01/04/20 10:17 DC 01/03/20 22:34 Ondansetron HCl (Zofran) 4 mg PRN Q8HRS PRN IV NAUSEA/VOMITING 1ST CHOICE 01/03/20 22:30 01/04/20 22:29 01/04/20 03:53 Sodium Chloride 1,000 ml @ 75 mls/hr [id number] IV 01/03/20 23:00 01/04/20 22:59 01/03/20 23:51 Fish Oil (Fish Oil) 1,000 mg DAILY PO 01/04/20 10:00 01/04/20 10:37 Pantoprazole Sodium (Protonix) 40 mg DAILYAC PO 01/04/20 11:30 01/04/20 10:37 Magnesium Sulfate 50 ml @ 25 mls/hr 1X ONCE IV 01/04/20 10:15 01/04/20 12:14 01/04/20 11:05 Metoprolol Tartrate (Lopressor) 25 mg 1X ONCE PO 01/04/20 10:15 01/04/20 10:32 DC 01/04/20 10:37 Aspirin (Ecotrin) 325 mg 1X ONCE PO 01/04/20 10:15 01/04/20 10:32 DC 01/04/20 10:37 Imaging: Imaging: CXR IMPRESSION: 1. No acute radiographic abnormality. Bibasilar interstitial changes with groundglass nodular opacity in the right lung, similar to recent exam. PE: GEN: NAD HEENT: Atraumatic, PERRL LUNGS: CTAB anteriorly HEART: irregular +murm ABD: NABS, S/ND/NT EXTREMITY: No edema SKIN: No rashes, no jaundice NEURO/PSYCH: A & O 3 A/P: A/P: N/v Leukocytosis, microcytosis, hypomagnesemia A Fib RVR GERD CRC screen - last in 2009 Diverticulosis H/o hepatic cyst H/o breast cancer FH pancreatic cancer -- ?infectious Continue per cardiology. Okay to ADAT per GI. Continue PPI, consider outpt EGD w/ tandem screening colonoscopy. Check iron profile re: microcytosis. EMELIA GRAVES Jan 04, 2020 11:51
[2020-01-04] MEDS: IV NORMAL SALINE 1000ML BAG 1,000 ML IV SCH (11:52)
[2020-01-04] MEDS ORDERED: METOPROLOL TARTRATE 5 MG/5 ML VIAL. IVP ONE (12:00)
[2020-01-04] MEDS ORDERED: DIGOXIN IV 500 MCG/2 ML AMPUL. IV ONE (15:15)
--- NOTE | 2020-01-04 15:48 | CARD ---
MR#: [id number] Date of Study: 01/04/2020 Ordering Physician: JESSICA JOSUE, Referring Physician: JESSICA JOSUE Tech: Betzy Hager LEONARDO APPROVED REPORT EXAM: Two-dimensional and M-mode echocardiogram with Doppler and color Doppler. Other Information Quality : Good Rhythm : Atrial Fibrillation INDICATION Atrial Fibrillation 2D DIMENSIONS RVDd4.1 (2.9-3.5cm)Left Atrium(2D)4.3 (1.6-4.0cm) IVSd1.2 (0.7-1.1cm)Aortic Root(2D)2.8 (2.0-3.7cm) LVDd3.8 (3.9-5.9cm)LVOT Diameter2.0 (1.8-2.4cm) PWd1.2 (0.7-1.1cm)LVDs2.6 (2.5-4.0cm) FS (%) 31.1 %SV37.7 ml LVEF(%)59.5 (>50%) Aortic Valve AoV Peak Thierry.218.8cm/sAoV VTI29.8cm AO Peak GR.19.2mmHgLVOT VTI 11.28cm AO Mean GR.13mmHgAVA (VTI)1.20cm2 Mitral Valve MV E Jixgmpxs29.4cm/sMV DECEL [id number] TDI Lateral E' P. V4.96cm/sMedial E' P. V3.22cm/s E/Lateral E'16.4E/Medial E'25.3 Tricuspid Valve TR P. [id number]/sRAP [id number] TR Peak Gr.[id number] LEFT VENTRICLE The left ventricle cavity is small. There is mild concentric left ventricular hypertrophy. The left v entricular systolic function is normal and the ejection fraction is within normal range. The Ejection Fraction is 55-60%. There is normal LV segmental wall motion. Tissue Doppler imaging reveals moderat e left ventricular diastolic dysfunction. RIGHT VENTRICLE The right ventricle is mildly dilated. The right ventricular systolic function is normal. ATRIA The left atrium is moderately dilated. The right atrium is moderately dilated. The interatrial septum is intact with no evidence for an atrial septal defect or patent foramen ovale as noted on 2-D or Do ppler imaging. AORTIC VALVE The aortic valve is calcified and displays decreased opening. Doppler and Color Flow revealed no sign ificant aortic regurgitation. Calculated aortic valve area is 1.2 cm2 with maximum pressure gradient of 19 mmHg and mean pressure gradient of 13 mmHg but is likely underestimated due to atrial fibrillat ion. Doppler and color-flow analysis revealed mild aortic stenosis. MITRAL VALVE The mitral valve is calcified but opens well. Mitral annular calcification is borderline. There is no evidence of mitral valve prolapse. There is no mitral valve stenosis. Doppler and Color-flow reveale d mild mitral regurgitation. TRICUSPID VALVE The tricuspid valve is normal in structure and function. Doppler and Color Flow revealed mild tricusp id regurgitation. There is mild pulmonary hypertension. The PA pressure was estimated at 38 mmHg. The re is no tricuspid valve stenosis. PULMONIC VALVE Doppler and Color Flow revealed mild pulmonic valvular regurgitation. There is no pulmonic valvular s tenosis. GREAT VESSELS The aortic root is normal in size. The ascending aorta is mildly dilated at 3.4 cm. The IVC is normal in size and collapses <50% with inspiration. PERICARDIAL EFFUSION There is no evidence of significant pericardial effusion. Critical Notification Critical Value: No <Conclusion> The left ventricular systolic function is normal and the ejection fraction is within normal range. Th e Ejection Fraction is 55-60%. There is normal LV segmental wall motion. The ascending aorta is mildly dilated at 3.4 cm. Signed by : Bang Mobley, Electronically Approved : 01/04/2020 15:48:31
--- NOTE | 2020-01-04 16:01 | NUR ---
SW following. Discussed with RN, pt from home, taking medications to control heart rate. Possibly be able to discharge tomorrow (01/05/2020) if heart rate under control. SW will continue to follow.
[2020-01-04] MEDS ORDERED: PROCHLORPERAZINE 10 MG/2 ML VIAL. IM PRN (17:00)
[2020-01-04] MEDS: PROCHLORPERAZINE 10 MG/2 ML VIAL. IVP PRN (17:09)
[2020-01-04 20:08] LABS: HEMOGLOBIN A1C 6.1 % (4.8-5.6)
[2020-01-04] MEDS: METOPROLOL TART IMMED RELEASE 25 MG TABLET. PO SCH (21:33)
[2020-01-04] MEDS: APIXABAN 5 MG TABLET. PO SCH (21:33)
[2020-01-05] MEDS: ONDANSETRON PF 4 MG/2 ML VIAL. IV PRN ×3 (01:34→22:21)
[2020-01-05 03:42] VITALS: BP 162/114
--- NOTE | 2020-01-05 05:40 | NUR ---
HR remains 110s with rest and 150s with minimal activity. BP thru the night 175/104, 162/114, 177,106. Reported to Dr Suazo at this time. Orders to restart Cardizem esteban.
[2020-01-05] MEDS ORDERED: dilTIAZem INJ 125 MG in IV NORMAL SALINE 100ML 100 ML IV PRN (05:45)
[2020-01-05 07:00] VITALS: BP 161/106
[2020-01-05] MEDS: POTASSIUM CHLORIDE 10 MEQ TABLET.ER. PO SCH (09:00)
[2020-01-05] MEDS: CETIRIZINE HCL 10 MG TABLET. PO SCH (09:00)
[2020-01-05] MEDS: OMEGA-3 FATTY ACIDS/FISH OIL 1,000 MG CAPSULE. PO SCH (09:00)
[2020-01-05] MEDS: PANTOPRAZOLE 40 MG TABLET.DR. PO SCH (09:20)
[2020-01-05] MEDS: PROCHLORPERAZINE 10 MG/2 ML VIAL. IVP PRN ×2 (09:20→19:37)
[2020-01-05] MEDS: APIXABAN 5 MG TABLET. PO SCH (09:21)
[2020-01-05] MEDS: METOPROLOL TART IMMED RELEASE 25 MG TABLET. PO SCH (09:21)
[2020-01-05] MEDS: CHOLECALCIFEROL (VITAMIN D3) 1,000 UNIT TABLET PO SCH ×2 (10:00→21:00)
--- NOTE | 2020-01-05 10:18 | PDOC ---
G I PROGRESS NOTE Subjective Having abdominal cramps. Small emesis earlier. No diarrhea. Objective Possible plans for cardioversion?? Rate controlled. Physical Exam Lungs clear. IRRR Abdomen mildly tender, non-specific. Review of Relevant I have reviewed the following items alondra (where applicable) has been applied. Labs Laboratory Tests Test 01/03/20 21:25 01/04/20 00:01 01/04/20 03:45 01/04/20 06:12 White Blood Count 17.8 x10^3/uL (4.0-11.0) 14.8 x10^3/uL (4.0-11.0) Red Blood Count 6.59 x10^6/uL (3.50-5.40) 6.23 x10^6/uL (3.50-5.40) Hemoglobin 15.0 g/dL (12.0-15.5) 13.6 g/dL (12.0-15.5) Hematocrit 46.8 % (36.0-47.0) 44.1 % (36.0-47.0) Mean Corpuscular Volume 71 fL (79-100) 71 fL (79-100) Mean Corpuscular Hemoglobin 23 pg (25-35) 22 pg (25-35) Mean Corpuscular Hemoglobin Concent 32 g/dL (31-37) 31 g/dL (31-37) Red Cell Distribution Width 16.4 % (11.5-14.5) 16.5 % (11.5-14.5) Platelet Count 293 x10^3/uL (140-400) 283 x10^3/uL (140-400) Neutrophils (%) (Auto) 92 % (31-73) Lymphocytes (%) (Auto) 6 % (24-48) Monocytes (%) (Auto) 2 % (0-9) Eosinophils (%) (Auto) 0 % (0-3) Basophils (%) (Auto) 0 % (0-3) Neutrophils # (Auto) 16.4 x10^3/uL (1.8-7.7) Lymphocytes # (Auto) 1.0 x10^3/uL (1.0-4.8) Monocytes # (Auto) 0.3 x10^3/uL (0.0-1.1) Eosinophils # (Auto) 0.0 x10^3/uL (0.0-0.7) Basophils # (Auto) 0.0 x10^3/uL (0.0-0.2) Segmented Neutrophils % 72 % (35-66) Band Neutrophils % 12 % (0-9) Lymphocytes % 10 % (24-48) Monocytes % 6 % (0-10) Toxic Granulation Slight Toxic Vacuolation Slight Platelet Estimate Adequate (ADEQUATE) Polychromasia Slight Prothrombin Time 14.1 SEC (11.7-14.0) Prothromb Time International Ratio 1.1 (0.8-1.1) Activated Partial Thromboplast Time 33 SEC (24-38) Sodium Level 142 mmol/L (136-145) 142 mmol/L (136-145) Potassium Level 3.6 mmol/L (3.5-5.1) 3.6 mmol/L (3.5-5.1) Chloride Level 101 mmol/L (98-107) 103 mmol/L (98-107) Carbon Dioxide Level 28 mmol/L (21-32) 27 mmol/L (21-32) Anion Gap 13 (6-14) 12 (6-14) Blood Urea Nitrogen 11 mg/dL (7-20) 12 mg/dL (7-20) Creatinine 0.9 mg/dL (0.6-1.0) 0.8 mg/dL (0.6-1.0) Estimated GFR (Cockcroft-Gault) 76.5 87.7 BUN/Creatinine Ratio 12 (6-20) Glucose Level 146 mg/dL (70-99) 130 mg/dL (70-99) Calcium Level 9.1 mg/dL (8.5-10.1) 8.5 mg/dL (8.5-10.1) Total Bilirubin 1.0 mg/dL (0.2-1.0) Aspartate Amino Transf (AST/SGOT) 37 U/L (15-37) Alanine Aminotransferase (ALT/SGPT) 44 U/L (14-59) Alkaline Phosphatase 119 U/L (46-116) Troponin I Quantitative 0.036 ng/mL (0.000-0.055) 0.049 ng/mL (0.000-0.055) 0.033 ng/mL (0.000-0.055) CW-Zwi-E-Type Natriuretic Peptide 3429 pg/mL (0-124) Total Protein 7.0 g/dL (6.4-8.2) Albumin 3.5 g/dL (3.4-5.0) Albumin/Globulin Ratio 1.0 (1.0-1.7) Lipase 62 U/L (73-393) Urine Collection Type Unknown Urine Color Yellow Urine Clarity Clear Urine pH 6.5 (<5.0-8.0) Urine Specific [place] 1.020 (1.000-1.030) Urine Protein 30 mg/dL (NEG-TRACE) Urine Glucose (UA) Negative mg/dL (NEG) Urine Ketones (Stick) 15 mg/dL (NEG) Urine Blood Negative (NEG) Urine Nitrite Negative (NEG) Urine Bilirubin Small (NEG) Urine Urobilinogen Dipstick 1.0 mg/dL (0.2 mg/dL) Urine Leukocyte Esterase Negative (NEG) Urine RBC Rare /HPF (0-2) Urine WBC Rare /HPF (0-4) Urine Squamous Epithelial Cells Few /LPF Urine Bacteria Few /HPF (0-FEW) Urine Mucus Mod /LPF Hemoglobin A1c 6.1 % (4.8-5.6) Magnesium Level 1.6 mg/dL (1.8-2.4) Triglycerides Level 51 mg/dL (0-150) Cholesterol Level 107 mg/dL (0-200) LDL Cholesterol, Calculated 62 mg/dL (0-100) VLDL Cholesterol, Calculated 10 mg/dL (0-40) Non-HDL Cholesterol Calculated 72 mg/dL (0-129) HDL Cholesterol 35 mg/dL (40-60) Cholesterol/HDL Ratio 3.1 Thyroid Stimulating Hormone (TSH) 2.520 uIU/mL (0.358-3.74) Test 01/04/20 11:53 01/04/20 12:25 Troponin I Quantitative 0.025 ng/mL (0.000-0.055) Iron Level 19 ug/dL (50-170) Total Iron Binding Capacity 287 ug/dL (250-450) Iron Saturation 7 % (15-34) Laboratory Tests Test 01/04/20 11:53 01/04/20 12:25 Troponin I Quantitative 0.025 ng/mL (0.000-0.055) Iron Level 19 ug/dL (50-170) Total Iron Binding Capacity 287 ug/dL (250-450) Iron Saturation 7 % (15-34) Vitals/I & O Vital Sign - Last 24 Hours 01/04/20 01/04/20 01/04/20 01/04/20 10:37 11:00 11:44 14:59 Temp 98.5 98.0 98.5 98.0 Pulse 94 108 94 91 Resp 16 18 B/P (MAP) 117/87 123/97 (106) 117/87 96/80 (85) Pulse Ox 92 91 O2 Delivery Room Air Room Air 01/04/20 01/04/20 01/04/20 01/04/20 15:23 19:18 20:00 21:33 Temp 98.6 98.6 Pulse 91 108 108 Resp 20 B/P (MAP) 96/80 166/98 (120) 166/98 Pulse Ox 91 O2 Delivery Room Air Room Air 01/04/20 01/05/20 01/05/20 01/05/20 22:36 03:42 07:00 08:00 Temp 98.1 97.9 97.4 98.1 97.9 97.4 Pulse 116 113 100 Resp 18 16 18 B/P (MAP) 175/104 (127) 162/114 (130) 161/106 (124) Pulse Ox 94 94 92 O2 Delivery Room Air Room Air Room Air Room Air 01/05/20 09:21 Pulse 100 B/P (MAP) 161/106 Intake and Output 01/04/20 01/04/20 01/05/20 15:00 23:00 07:00 Intake Total 540 ml 360 ml 120 ml Balance 540 ml 360 ml 120 ml Problem List Problems Medical Problems: (1) Atrial fibrillation with RVR Status: Acute (2) Nausea & vomiting Status: Acute Assessment Recurrent emesis and abdominal cramping; maybe viral issue after all. Don't want to miss significant intraabdominal pathology, though. Plan of Care Note CT A/P w/o contrast. Continue other. Hemodynamically unstable?: Yes Is patient in severe pain?: No Is NPO status required?: Yes CAROLYN HINKLE MD Jan 05, 2020 10:18
[2020-01-05 10:37] VITALS: BP 149/112
--- NOTE | 2020-01-05 11:27 | PDOC ---
[facility] PROGRESS NOTE Chief Complaint Chief Complaint A. fib with RVR Abdominal pain 1. Breast cancer. 2. Mastectomy. 3. Hysterectomy. 4. Tubal ligation. 5. Colonoscopy. History of Present Illness History of Present Illness [id number] Patient seen and examined Discussed with RN Chart reviewed Patient still having abdominal pain GI considering imaging Vitals/I&O Vitals/I&O: Vital Signs Date Time Temp Pulse Resp B/P (MAP) Pulse Ox O2 Delivery O2 Flow Rate FiO2 01/05/20 10:37 97.8 101 18 149/112 (124) 91 Room Air 97.8 I & O 01/04/20 01/04/20 01/05/20 15:00 23:00 07:00 Intake Total 540 ml 360 ml 120 ml Balance 540 ml 360 ml 120 ml Physical Exam General: Alert, Oriented X3, Cooperative, No acute distress Heart: Other (AFIB RVR) Abdomen: Soft, Other (mild diffuse tenderness) Extremities: No cyanosis, No edema Skin: No breakdown, No significant lesion Labs Labs: Laboratory Tests Test 01/04/20 11:53 01/04/20 12:25 Troponin I Quantitative 0.025 ng/mL (0.000-0.055) Iron Level 19 ug/dL (50-170) Total Iron Binding Capacity 287 ug/dL (250-450) Iron Saturation 7 % (15-34) Assessment and Plan Assessmemt and Plan Problems Medical Problems: (1) Atrial fibrillation with RVR Status: Acute (2) Nausea & vomiting Status: Acute A. fib with RVR Abdominal pain 1. Breast cancer. 2. Mastectomy. 3. Hysterectomy. 4. Tubal ligation. 5. Colonoscopy. Plan Cardiac monitoring IV negative chronotropic agents Cardiology considering cardioversion GI considering imaging Home meds DVT prophylaxis Full code Prognosis guarded Comment Review of Relevant I have reviewed the following items alondra (where applicable) has been applied. Medications: Current Medications Medications (Trade) Dose Ordered Sig/Amrit Route PRN Reason Start Time Stop Time Status Last Admin Dose Admin Pantoprazole Sodium (Protonix) 40 mg DAILYAC PO 01/04/20 11:30 01/05/20 09:20 Metoprolol Tartrate (Lopressor) 25 mg BID PO 01/04/20 21:00 01/05/20 09:21 Metoprolol Tartrate (Lopressor Vial) 5 mg 1X ONCE IVP 01/04/20 12:00 01/04/20 12:01 DC 01/04/20 11:44 Digoxin (Lanoxin) 500 mcg 1X ONCE IV 01/04/20 15:15 01/04/20 15:16 DC 01/04/20 15:23 Ondansetron HCl (Zofran) 4 mg PRN Q4HRS PRN IV NAUSEA/VOMITING 1ST CHOICE 01/04/20 17:00 01/05/20 01:34 Apixaban (Eliquis) 5 mg BID PO 01/04/20 21:00 01/05/20 09:21 Prochlorperazine Edisylate (Compazine) 10 mg PRN Q6HRS PRN IVP NAUSEA/VOMITING- 2ND CHOICE 01/04/20 17:15 01/05/20 09:20 Diltiazem HCl 125 mg/Sodium Chloride 125 ml @ 5 mls/hr CONT PRN IV SEE I/O RECORD 01/05/20 05:45 01/05/20 06:24 Hemodynamically unstable?: Yes Is patient in severe pain?: No Is NPO status required?: Yes SEJAL MCCLELLAN III DO Jan 05, 2020 11:27
[2020-01-05 12:04] LABS: BASO % 0 % (0-3); EOS # 0.1 x10^3/uL (0.0-0.7); EOS % 0 % (0-3); HEMATOCRIT 55.2 % (36.0-47.0); HEMOGLOBIN 17.4 g/dL (12.0-15.5); LYMPH # 1.1 x10^3/uL (1.0-4.8); LYMPH % 8 % (24-48); MEAN CORPUSCULAR HEMOGLOBIN 22 pg (25-35); MEAN CORPUSCULAR HGB CONC 32 g/dL (31-37); MEAN CORPUSCULAR VOLUME 71 fL (79-100); MONO # 0.7 x10^3/uL (0.0-1.1); MONO % 5 % (0-9); NEUT # 11.2 x10^3/uL (1.8-7.7); NEUT % 86 % (31-73); PLATELET COUNT 260 x10^3/uL (140-400); RED CELL DISTRIBUTION WIDTH 16.7 % (11.5-14.5); WHITE BLOOD COUNT 13.1 x10^3/uL (4.0-11.0)
--- NOTE | 2020-01-05 12:34 | RAD ---
EXAM: CT Abdomen and Pelvis without IV contrast INDICATION: Recomment abdominal cramping and emesis. 64-year-old woman with a history of atrial fibrillation, not currently on anticoagulation. TECHNIQUE: Multi-detector row CT images were acquired from the lung bases through the abdomen and pelvis without the use of IV contrast. Sagittal and coronal images were acquired from the transaxial data. All CT scans performed at this facility utilize dose optimization techniques as appropriate to the exam, including the following: Automated exposure control and adjustment of the mA and/or KV according to patient size (this includes techniques or standardized protocols for targeted exams where dose is indication/reason for exam). ORAL CONTRAST: None COMPARISON: Chest abdomen pelvis CT of January 11, 2018 FINDINGS: The absence of IV contrast limits evaluation of soft tissue pathology. LOWER CHEST: Right mastectomy surgical changes and mild interlobular septal thickening, nonspecific. Subpleural reticulation along the right upper lobe compatible with post radiation change remains present. Dense calcified mediastinal lymph node. Moderately enlarged heart with aortic valvular calcifications. LIVER: Interval decrease in size with subtle nonspecific undulation to the hepatic contour is equivocal evidence of early cirrhotic changes. No liver masses seen on noncontrast CT. BILIARY SYSTEM: Gallbladder mildly distended. The gallbladder fundus is partly obscured by moderate amount of perihepatic ascites. Bile ducts are not dilated. PANCREAS: Unremarkable SPLEEN: Unremarkable ADRENALS: Unremarkable KIDNEYS & URETERS: Unremarkable BLADDER: Moderately distended. REPRODUCTIVE ORGANS: Unremarkable GASTROINTESTINAL: There is abnormal wall thickening in small bowel loops in the right lower quadrant abdomen that are associated with moderate mesenteric edema. Extensive sigmoid diverticulosis is present. No findings of bowel obstruction or perforation. The rectosigmoid colon is collapsed and difficult to evaluate on this exam as a result. Colitis or neoplasm would be difficult to exclude. The appendix is normal. MESENTERY/PERITONEUM/RETROPERITONEUM: In addition to moderate amount of mesenteric edema in the small bowel loops in the right lower quadrant, large amount of ascites is present that measures up to 19 Hounsfield units which could reflect dilute or anemic blood in the appropriate clinical context. VASCULAR: Scattered arterial calcifications. Evaluation for vessel patency limited in the absence of IV contrast. LYMPH NODES: There are multiple mildly prominent mesenteric lymph nodes. No bulky adenopathy. OSSEOUS & SOFT TISSUES: Unremarkable IMPRESSION: 1. Findings suspicious for early ischemic bowel in the right lower quadrant small bowel loops. 2. Moderate ascites, possibly hemorrhagic. If there is any concern for biliary pathology, ultrasound of the hepatobiliary tree could be pursued. FOR INTERNAL CODING PURPOSES Critical result: Findings discussed with CAROLYN HINKLE at 01/05/2020 12:16 PM. RESULT CODE: (C) Electronically signed by: Francoise Dudley MD (01/05/2020 12:31 PM) [id number]
[2020-01-05 13:02] LABS: CALCIUM 8.7 mg/dL (8.5-10.1); CREATININE 0.8 mg/dL (0.6-1.0); GFR 87.7; POTASSIUM 3.7 mmol/L (3.5-5.1)
[2020-01-05 13:09] LABS: ALBUMIN 2.8 g/dL (3.4-5.0); ALBUMIN/GLOBULIN RATIO 0.8 (1.0-1.7); TOTAL BILIRUBIN 1.3 mg/dL (0.2-1.0); TOTAL PROTEIN 6.3 g/dL (6.4-8.2)
--- NOTE | 2020-01-05 13:40 | PDOC2 ---
VÍCTOR EASON ANTENNA SPECIALIST 01/05/20 1340: CONSULT Date of Consult Date of Consult DATE: 01/05/20 TIME: 13:23 Reason for Consult Reason for Consult: possible bowel ischemia Referring Physician Referring Physician: Dr Jason Identification/Chief Complaint Chief Complaint abdominal pain Source Source: Chart review, Patient History of Present Illness Reason for Visit: Reports acute abdominal pain, n/v starting Thursday. Reports a normal stool Thursday, no constipation or diarrhea. No fevers, does report some chills. Currently no further vomiting and pain is improved from admission. No sick contacts, no similar symptoms in past. Past Medical History Cardiovascular: HTN, Other (chronic lymphedema to right arm) Pulmonary: Other (Moderate bilateral pleural/parenchymal scarring, including subpleural scarring in the right middle lobe due to previous radiation therapy.Unchanged medial right upper lobe subpleural opacity also likely representing scarring per CT chest 08/10/2018 ) CENTRAL NERVOUS SYSTEM: Other (No pertinent history) GI: Diverticulosis, GERD Heme/Onc: No pertinent hx Hepatobiliary: No pertinent hx Psych: No pertinent hx Musculoskeletal: Osteoarthritis Rheumatologic: No pertinent hx Infectious disease: No pertinent hx ENT: Allergic Rhinitis Renal/: No pertinent hx Endocrine: No pertinent hx Dermatology: No pertinent hx Past Surgical History Past Surgical History: Mastectomy (right with lymph node dissection also with chemo and radiation, been in remission since ), Hysterectomy Family History Family History: Other (sister with AFIB at 65) Social History Quit ALCOHOL: rare Drugs: None Lives: Alone Current Problem List Problem List Problems Medical Problems: (1) Atrial fibrillation with RVR Status: Acute (2) Nausea & vomiting Status: Acute Current Medications Current Medications Current Medications Sodium Chloride 1,000 ml @ 1,000 mls/hr 1X ONCE IV Last administered on 01/03/20at 21:52; Start 01/03/20 at 21:30; Stop 01/03/20 at 22:29; Status DC Ondansetron HCl (Zofran) 4 mg 1X ONCE IVP Last administered on 01/03/20at 21:53; Start 01/03/20 at 22:00; Stop 01/03/20 at 22:01; Status DC Multi-Ingredient Mouthwash/Gargle (Gi Cocktail) 20 ml 1X ONCE SWSW Last administered on 01/03/20at 21:52; Start 01/03/20 at 22:00; Stop 01/03/20 at 22:01; Status DC Diltiazem HCl (Cardizem Iv Push) 10 mg 1X ONCE IVP Last administered on 01/03/20at 21:54; Start 01/03/20 at 22:00; Stop 01/03/20 at 22:01; Status DC Morphine Sulfate (Morphine Sulfate) 2 mg 1X ONCE IV Last administered on 01/03/20at 22:21; Start 01/03/20 at 22:30; Stop 01/03/20 at 22:31; Status DC Diltiazem HCl 125 mg/Sodium Chloride 125 ml @ 5 mls/hr CONT PRN IV SEE I/O RECORD Last administered on 01/03/20at 22:34; Start 01/03/20 at 22:30; Stop 01/04/20 at 10:17; Status DC Ondansetron HCl (Zofran) 4 mg PRN Q8HRS PRN IV NAUSEA/VOMITING 1ST CHOICE Last administered on 01/04/20at 11:45; Start 01/03/20 at 22:30; Stop 01/04/20 at 16:53; Status DC Sodium Chloride 1,000 ml @ 75 mls/hr [id number] IV Last administered on 01/03/20at 23:51; Start 01/03/20 at 23:00; Stop 01/04/20 at 22:59; Status DC Fish Oil (Fish Oil) 1,000 mg DAILY PO Last administered on 01/04/20at 10:37; Start 01/04/20 at 10:00 Potassium Chloride (Klor-Con) 10 meq DAILY PO ; Start 01/05/20 at 09:00 Vitamin D (Vitamin D3) 2,000 unit BID PO ; Start 01/05/20 at 10:00 Cetirizine HCl (ZyrTEC) 10 mg DAILY PO ; Start 01/04/20 at 10:00; Stop 01/05/20 at 13:07; Status DC Pantoprazole Sodium (Protonix) 40 mg DAILYAC PO Last administered on 01/05/20at 09:20; Start 01/04/20 at 11:30 Triamterene/HCTZ (Maxzide 37.5/ 25mg) 1 tab DAILY PO ; Start 01/04/20 at 10:00; Stop 01/04/20 at 10:17; Status DC Magnesium Sulfate 50 ml @ 25 mls/hr 1X ONCE IV Last administered on 01/04/20at 11:05; Start 01/04/20 at 10:15; Stop 01/04/20 at 12:14; Status DC Metoprolol Tartrate (Lopressor) 25 mg BID PO Last administered on 01/05/20at 09:21; Start 01/04/20 at 21:00 Metoprolol Tartrate (Lopressor) 25 mg 1X ONCE PO Last administered on 01/04/20at 10:37; Start 01/04/20 at 10:15; Stop 01/04/20 at 10:32; Status DC Aspirin (Ecotrin) 325 mg 1X ONCE PO Last administered on 01/04/20at 10:37; Start 01/04/20 at 10:15; Stop 01/04/20 at 10:32; Status DC Metoprolol Tartrate (Lopressor Vial) 5 mg 1X ONCE IVP Last administered on 01/04/20at 11:44; Start 01/04/20 at 12:00; Stop 01/04/20 at 12:01; Status DC Non-Formulary Medication 1 ea DAILY PO Last administered on 01/04/20at 11:44; Start 01/04/20 at 11:00 Digoxin (Lanoxin) 500 mcg 1X ONCE IV Last administered on 01/04/20at 15:23; Start 01/04/20 at 15:15; Stop 01/04/20 at 15:16; Status DC Ondansetron HCl (Zofran) 4 mg PRN Q4HRS PRN IV NAUSEA/VOMITING 1ST CHOICE Last administered on 01/05/20at 01:34; Start 01/04/20 at 17:00 Prochlorperazine Edisylate (Compazine) 10 mg PRN Q6HRS PRN IM NAUSEA/VOMITING- 2ND CHOICE; Start 01/04/20 at 17:00; Stop 01/04/20 at 17:08; Status DC Apixaban (Eliquis) 5 mg BID PO Last administered on 01/05/20at 09:21; Start 01/04/20 at 21:00 Prochlorperazine Edisylate (Compazine) 10 mg PRN Q6HRS PRN IVP NAUSEA/VOMITING- 2ND CHOICE Last administered on 01/05/20at 09:20; Start 01/04/20 at 17:15 Diltiazem HCl 125 mg/Sodium Chloride 125 ml @ 5 mls/hr CONT PRN IV SEE I/O RECORD Last administered on 01/05/20at 06:24; Start 01/05/20 at 05:45 Active Scripts Active Reported Klor-Con 10 (Potassium Chloride) 10 Meq Tablet.er 10 Meq PO DAILY Omeprazole 20 Mg Capsule.dr 20 Mg PO DAILY Fish Oil 1,000 Mg Capsule ([place]-3 Fatty Acids/Fish Oil) 1 Each Capsule 1 Each PO DAILY Vitamin D (Cholecalciferol (Vitamin D3)) 2,000 Unit Capsule 2,000 Unit PO BID Claritin (Loratadine) 10 Mg Tablet 10 Mg PO DAILY Triamterene-Hctz 37.5-25 Mg Cp (Triamterene/Hydrochlorothiazid) 1 Each Capsule 1 Cap PO DAILY Allergies Allergies: Coded Allergies: penicillin (Verified Allergy, Severe, Anaphylaxis, 12/06/15) pineapple (Verified Allergy, Severe, SWELLING IN MOUTH, 12/06/15) ROS General: YES: Chills; No: Other (fevers ) PSYCHOLOGICAL ROS: No: Anxiety, Depression Eyes: No Blurry vision, No Double vision HEENT: No: Heacaches, Sore Throat Hematological and Lymphatic: YES: Bleeding Problems; No: Blood Clots Respiratory: No: Cough, Shortness of breath Cardiovascular: No Chest Pain, No Palpitations Gastrointestinal: Yes Other (see hpi) Genitourinary: No Dysuria, No Retention Musculoskeletal: No Joint Pain, No Muscle Pain Neurological: No Impaired Coord/balance, No Numbness/Tingling Skin: No Nail Changes, No Rash Physical Exam General: Alert, Oriented X3, Cooperative HEENT: Atraumatic, PERRLA Lungs: Clear to auscultation, Normal air movement Heart: Other (afib) Abdomen: Soft, Other (mild distention, ttp RLQ, epigastric, no guarding, no peritoneal signs ) Extremities: No clubbing, No cyanosis Skin: No rashes, No breakdown Neuro: Normal gait, Normal speech Psych/Mental Status: Mental status NL, Mood NL MUSCULOSKELETAL: No deformity, No swelling Vitals VITALS Vital Signs Date Time Temp Pulse Resp B/P (MAP) Pulse Ox O2 Delivery O2 Flow Rate FiO2 01/05/20 10:37 97.8 101 18 149/112 (124) 91 Room Air 97.8 Labs Labs Laboratory Tests Test 01/03/20 21:25 01/04/20 00:01 01/04/20 03:45 01/04/20 06:12 White Blood Count 17.8 x10^3/uL (4.0-11.0) 14.8 x10^3/uL (4.0-11.0) Red Blood Count 6.59 x10^6/uL (3.50-5.40) 6.23 x10^6/uL (3.50-5.40) Hemoglobin 15.0 g/dL (12.0-15.5) 13.6 g/dL (12.0-15.5) Hematocrit 46.8 % (36.0-47.0) 44.1 % (36.0-47.0) Mean Corpuscular Volume 71 fL (79-100) 71 fL (79-100) Mean Corpuscular Hemoglobin 23 pg (25-35) 22 pg (25-35) Mean Corpuscular Hemoglobin Concent 32 g/dL (31-37) 31 g/dL (31-37) Red Cell Distribution Width 16.4 % (11.5-14.5) 16.5 % (11.5-14.5) Platelet Count 293 x10^3/uL (140-400) 283 x10^3/uL (140-400) Neutrophils (%) (Auto) 92 % (31-73) Lymphocytes (%) (Auto) 6 % (24-48) Monocytes (%) (Auto) 2 % (0-9) Eosinophils (%) (Auto) 0 % (0-3) Basophils (%) (Auto) 0 % (0-3) Neutrophils # (Auto) 16.4 x10^3/uL (1.8-7.7) Lymphocytes # (Auto) 1.0 x10^3/uL (1.0-4.8) Monocytes # (Auto) 0.3 x10^3/uL (0.0-1.1) Eosinophils # (Auto) 0.0 x10^3/uL (0.0-0.7) Basophils # (Auto) 0.0 x10^3/uL (0.0-0.2) Segmented Neutrophils % 72 % (35-66) Band Neutrophils % 12 % (0-9) Lymphocytes % 10 % (24-48) Monocytes % 6 % (0-10) Toxic Granulation Slight Toxic Vacuolation Slight Platelet Estimate Adequate (ADEQUATE) Polychromasia Slight Prothrombin Time 14.1 SEC (11.7-14.0) Prothromb Time International Ratio 1.1 (0.8-1.1) Activated Partial Thromboplast Time 33 SEC (24-38) Sodium Level 142 mmol/L (136-145) 142 mmol/L (136-145) Potassium Level 3.6 mmol/L (3.5-5.1) 3.6 mmol/L (3.5-5.1) Chloride Level 101 mmol/L (98-107) 103 mmol/L (98-107) Carbon Dioxide Level 28 mmol/L (21-32) 27 mmol/L (21-32) Anion Gap 13 (6-14) 12 (6-14) Blood Urea Nitrogen 11 mg/dL (7-20) 12 mg/dL (7-20) Creatinine 0.9 mg/dL (0.6-1.0) 0.8 mg/dL (0.6-1.0) Estimated GFR (Cockcroft-Gault) 76.5 87.7 BUN/Creatinine Ratio 12 (6-20) Glucose Level 146 mg/dL (70-99) 130 mg/dL (70-99) Calcium Level 9.1 mg/dL (8.5-10.1) 8.5 mg/dL (8.5-10.1) Total Bilirubin 1.0 mg/dL (0.2-1.0) Aspartate Amino Transf (AST/SGOT) 37 U/L (15-37) Alanine Aminotransferase (ALT/SGPT) 44 U/L (14-59) Alkaline Phosphatase 119 U/L (46-116) Troponin I Quantitative 0.036 ng/mL (0.000-0.055) 0.049 ng/mL (0.000-0.055) 0.033 ng/mL (0.000-0.055) TL-Gcm-L-Type Natriuretic Peptide 3429 pg/mL (0-124) Total Protein 7.0 g/dL (6.4-8.2) Albumin 3.5 g/dL (3.4-5.0) Albumin/Globulin Ratio 1.0 (1.0-1.7) Lipase 62 U/L (73-393) Urine Collection Type Unknown Urine Color Yellow Urine Clarity Clear Urine pH 6.5 (<5.0-8.0) Urine Specific [place] 1.020 (1.000-1.030) Urine Protein 30 mg/dL (NEG-TRACE) Urine Glucose (UA) Negative mg/dL (NEG) Urine Ketones (Stick) 15 mg/dL (NEG) Urine Blood Negative (NEG) Urine Nitrite Negative (NEG) Urine Bilirubin Small (NEG) Urine Urobilinogen Dipstick 1.0 mg/dL (0.2 mg/dL) Urine Leukocyte Esterase Negative (NEG) Urine RBC Rare /HPF (0-2) Urine WBC Rare /HPF (0-4) Urine Squamous Epithelial Cells Few /LPF Urine Bacteria Few /HPF (0-FEW) Urine Mucus Mod /LPF Hemoglobin A1c 6.1 % (4.8-5.6) Magnesium Level 1.6 mg/dL (1.8-2.4) Triglycerides Level 51 mg/dL (0-150) Cholesterol Level 107 mg/dL (0-200) LDL Cholesterol, Calculated 62 mg/dL (0-100) VLDL Cholesterol, Calculated 10 mg/dL (0-40) Non-HDL Cholesterol Calculated 72 mg/dL (0-129) HDL Cholesterol 35 mg/dL (40-60) Cholesterol/HDL Ratio 3.1 Thyroid Stimulating Hormone (TSH) 2.520 uIU/mL (0.358-3.74) Test 01/04/20 11:53 01/04/20 12:25 01/05/20 11:55 Troponin I Quantitative 0.025 ng/mL (0.000-0.055) Iron Level 19 ug/dL (50-170) Total Iron Binding Capacity 287 ug/dL (250-450) Iron Saturation 7 % (15-34) White Blood Count 13.1 x10^3/uL (4.0-11.0) Red Blood Count 7.80 x10^6/uL (3.50-5.40) Hemoglobin 17.4 g/dL (12.0-15.5) Hematocrit 55.2 % (36.0-47.0) Mean Corpuscular Volume 71 fL (79-100) Mean Corpuscular Hemoglobin 22 pg (25-35) Mean Corpuscular Hemoglobin Concent 32 g/dL (31-37) Red Cell Distribution Width 16.7 % (11.5-14.5) Platelet Count 260 x10^3/uL (140-400) Neutrophils (%) (Auto) 86 % (31-73) Lymphocytes (%) (Auto) 8 % (24-48) Monocytes (%) (Auto) 5 % (0-9) Eosinophils (%) (Auto) 0 % (0-3) Basophils (%) (Auto) 0 % (0-3) Neutrophils # (Auto) 11.2 x10^3/uL (1.8-7.7) Lymphocytes # (Auto) 1.1 x10^3/uL (1.0-4.8) Monocytes # (Auto) 0.7 x10^3/uL (0.0-1.1) Eosinophils # (Auto) 0.1 x10^3/uL (0.0-0.7) Basophils # (Auto) 0.0 x10^3/uL (0.0-0.2) Sodium Level 140 mmol/L (136-145) Potassium Level 3.7 mmol/L (3.5-5.1) Chloride Level 101 mmol/L (98-107) Carbon Dioxide Level 24 mmol/L (21-32) Anion Gap 15 (6-14) Blood Urea Nitrogen 19 mg/dL (7-20) Creatinine 0.8 mg/dL (0.6-1.0) Estimated GFR (Cockcroft-Gault) 87.7 BUN/Creatinine Ratio 24 (6-20) Glucose Level 155 mg/dL (70-99) Lactic Acid Level 1.7 mmol/L (0.4-2.0) Calcium Level 8.7 mg/dL (8.5-10.1) Total Bilirubin 1.3 mg/dL (0.2-1.0) Aspartate Amino Transf (AST/SGOT) 29 U/L (15-37) Alanine Aminotransferase (ALT/SGPT) 31 U/L (14-59) Alkaline Phosphatase 104 U/L (46-116) Total Protein 6.3 g/dL (6.4-8.2) Albumin 2.8 g/dL (3.4-5.0) Albumin/Globulin Ratio 0.8 (1.0-1.7) Laboratory Tests Test 01/05/20 11:55 White Blood Count 13.1 x10^3/uL (4.0-11.0) Red Blood Count 7.80 x10^6/uL (3.50-5.40) Hemoglobin 17.4 g/dL (12.0-15.5) Hematocrit 55.2 % (36.0-47.0) Mean Corpuscular Volume 71 fL (79-100) Mean Corpuscular Hemoglobin 22 pg (25-35) Mean Corpuscular Hemoglobin Concent 32 g/dL (31-37) Red Cell Distribution Width 16.7 % (11.5-14.5) Platelet Count 260 x10^3/uL (140-400) Neutrophils (%) (Auto) 86 % (31-73) Lymphocytes (%) (Auto) 8 % (24-48) Monocytes (%) (Auto) 5 % (0-9) Eosinophils (%) (Auto) 0 % (0-3) Basophils (%) (Auto) 0 % (0-3) Neutrophils # (Auto) 11.2 x10^3/uL (1.8-7.7) Lymphocytes # (Auto) 1.1 x10^3/uL (1.0-4.8) Monocytes # (Auto) 0.7 x10^3/uL (0.0-1.1) Eosinophils # (Auto) 0.1 x10^3/uL (0.0-0.7) Basophils # (Auto) 0.0 x10^3/uL (0.0-0.2) Sodium Level 140 mmol/L (136-145) Potassium Level 3.7 mmol/L (3.5-5.1) Chloride Level 101 mmol/L (98-107) Carbon Dioxide Level 24 mmol/L (21-32) Anion Gap 15 (6-14) Blood Urea Nitrogen 19 mg/dL (7-20) Creatinine 0.8 mg/dL (0.6-1.0) Estimated GFR (Cockcroft-Gault) 87.7 BUN/Creatinine Ratio 24 (6-20) Glucose Level 155 mg/dL (70-99) Lactic Acid Level 1.7 mmol/L (0.4-2.0) Calcium Level 8.7 mg/dL (8.5-10.1) Total Bilirubin 1.3 mg/dL (0.2-1.0) Aspartate Amino Transf (AST/SGOT) 29 U/L (15-37) Alanine Aminotransferase (ALT/SGPT) 31 U/L (14-59) Alkaline Phosphatase 104 U/L (46-116) Total Protein 6.3 g/dL (6.4-8.2) Albumin 2.8 g/dL (3.4-5.0) Albumin/Globulin Ratio 0.8 (1.0-1.7) Assessment/Plan Assessment/Plan abd pain--CT concerning for early bowel ischemia AFIB-persistent on Cardizem drip -d/w cards--received eliquis today--can hold an d will do heparin drip--i left order to stop at 6 am WBC is trending down, afebrile, no peritoneal signs on exam, she reports i mproved pain, lactic normal REc improving cardiac issues, holding eliquis, NPO, abx and re-eval in AM d/w TAMERA Mayen MD 01/05/20 1557: CONSULT Assessment/Plan Assessment/Plan pt seen, interviewed and examined agree with above will re-assess in the AM discussed with Ms Saab Thanks for consult VÍCTOR EASON APRN Jan 05, 2020 13:40 TAMERA SAUCEDO MD Jan 05, 2020 15:57
[2020-01-05] MEDS ORDERED: METOPROLOL TARTRATE 5 MG/5 ML VIAL. IVP ONE (13:45)
[2020-01-05] MEDS ORDERED: HEPARIN for IV BOLUS 10,000 UNIT/10 ML VIAL. IV PRN (15:00)
[2020-01-05 15:07] VITALS: BP 144/92
[2020-01-05] MEDS: AMINO AC 3%/ELECTROLYTE/GLYCER 1,000 ML IV SCH (15:16)
--- NOTE | 2020-01-05 16:27 | PDOC ---
PROGRESS NOTES Subjective Subjective Patient seen and examined Objective Objective Vital Signs Date Time Temp Pulse Resp B/P (MAP) Pulse Ox O2 Delivery O2 Flow Rate FiO2 01/05/20 15:16 86 144/92 01/05/20 15:07 98.0 20 91 Room Air 98.0 Intake and Output 01/05/20 07:00 Intake Total 1020 ml Balance 1020 ml Intake Oral 1020 ml # Voids 5 Physical Exam Abdomen: Normal bowel sounds Heart: Other (irregularly irregular) General: No acute distress Lungs: Clear to auscultation Assessment Assessment Problems Medical Problems: (1) Atrial fibrillation with RVR Status: Acute (2) Nausea & vomiting Status: Acute 1. AFIB RVR: rate improved. New onset. We'll change to oral medications and Eliquis when stable po intake. 2. DERAS/fatigue: improved. CP free 3. HTN: controlled and on home maxide 4. Leukocytosis: per PCP 5. Hyperglycemia 6. Vomiting: improved. 7. Hx of diverticulosis and GERD: takes prilosec at home 8. Hx of breast CA with radical right mastectomy/chemo radiation 2014 Comment Review of Relevant I have reviewed the following items alondra (where applicable) has been applied. Labs Laboratory Tests Test 01/03/20 21:25 01/04/20 00:01 01/04/20 03:45 01/04/20 06:12 White Blood Count 17.8 x10^3/uL (4.0-11.0) 14.8 x10^3/uL (4.0-11.0) Red Blood Count 6.59 x10^6/uL (3.50-5.40) 6.23 x10^6/uL (3.50-5.40) Hemoglobin 15.0 g/dL (12.0-15.5) 13.6 g/dL (12.0-15.5) Hematocrit 46.8 % (36.0-47.0) 44.1 % (36.0-47.0) Mean Corpuscular Volume 71 fL (79-100) 71 fL (79-100) Mean Corpuscular Hemoglobin 23 pg (25-35) 22 pg (25-35) Mean Corpuscular Hemoglobin Concent 32 g/dL (31-37) 31 g/dL (31-37) Red Cell Distribution Width 16.4 % (11.5-14.5) 16.5 % (11.5-14.5) Platelet Count 293 x10^3/uL (140-400) 283 x10^3/uL (140-400) Neutrophils (%) (Auto) 92 % (31-73) Lymphocytes (%) (Auto) 6 % (24-48) Monocytes (%) (Auto) 2 % (0-9) Eosinophils (%) (Auto) 0 % (0-3) Basophils (%) (Auto) 0 % (0-3) Neutrophils # (Auto) 16.4 x10^3/uL (1.8-7.7) Lymphocytes # (Auto) 1.0 x10^3/uL (1.0-4.8) Monocytes # (Auto) 0.3 x10^3/uL (0.0-1.1) Eosinophils # (Auto) 0.0 x10^3/uL (0.0-0.7) Basophils # (Auto) 0.0 x10^3/uL (0.0-0.2) Segmented Neutrophils % 72 % (35-66) Band Neutrophils % 12 % (0-9) Lymphocytes % 10 % (24-48) Monocytes % 6 % (0-10) Toxic Granulation Slight Toxic Vacuolation Slight Platelet Estimate Adequate (ADEQUATE) Polychromasia Slight Prothrombin Time 14.1 SEC (11.7-14.0) Prothromb Time International Ratio 1.1 (0.8-1.1) Activated Partial Thromboplast Time 33 SEC (24-38) Sodium Level 142 mmol/L (136-145) 142 mmol/L (136-145) Potassium Level 3.6 mmol/L (3.5-5.1) 3.6 mmol/L (3.5-5.1) Chloride Level 101 mmol/L (98-107) 103 mmol/L (98-107) Carbon Dioxide Level 28 mmol/L (21-32) 27 mmol/L (21-32) Anion Gap 13 (6-14) 12 (6-14) Blood Urea Nitrogen 11 mg/dL (7-20) 12 mg/dL (7-20) Creatinine 0.9 mg/dL (0.6-1.0) 0.8 mg/dL (0.6-1.0) Estimated GFR (Cockcroft-Gault) 76.5 87.7 BUN/Creatinine Ratio 12 (6-20) Glucose Level 146 mg/dL (70-99) 130 mg/dL (70-99) Calcium Level 9.1 mg/dL (8.5-10.1) 8.5 mg/dL (8.5-10.1) Total Bilirubin 1.0 mg/dL (0.2-1.0) Aspartate Amino Transf (AST/SGOT) 37 U/L (15-37) Alanine Aminotransferase (ALT/SGPT) 44 U/L (14-59) Alkaline Phosphatase 119 U/L (46-116) Troponin I Quantitative 0.036 ng/mL (0.000-0.055) 0.049 ng/mL (0.000-0.055) 0.033 ng/mL (0.000-0.055) AP-Qrx-A-Type Natriuretic Peptide 3429 pg/mL (0-124) Total Protein 7.0 g/dL (6.4-8.2) Albumin 3.5 g/dL (3.4-5.0) Albumin/Globulin Ratio 1.0 (1.0-1.7) Lipase 62 U/L (73-393) Urine Collection Type Unknown Urine Color Yellow Urine Clarity Clear Urine pH 6.5 (<5.0-8.0) Urine Specific [place] 1.020 (1.000-1.030) Urine Protein 30 mg/dL (NEG-TRACE) Urine Glucose (UA) Negative mg/dL (NEG) Urine Ketones (Stick) 15 mg/dL (NEG) Urine Blood Negative (NEG) Urine Nitrite Negative (NEG) Urine Bilirubin Small (NEG) Urine Urobilinogen Dipstick 1.0 mg/dL (0.2 mg/dL) Urine Leukocyte Esterase Negative (NEG) Urine RBC Rare /HPF (0-2) Urine WBC Rare /HPF (0-4) Urine Squamous Epithelial Cells Few /LPF Urine Bacteria Few /HPF (0-FEW) Urine Mucus Mod /LPF Hemoglobin A1c 6.1 % (4.8-5.6) Magnesium Level 1.6 mg/dL (1.8-2.4) Triglycerides Level 51 mg/dL (0-150) Cholesterol Level 107 mg/dL (0-200) LDL Cholesterol, Calculated 62 mg/dL (0-100) VLDL Cholesterol, Calculated 10 mg/dL (0-40) Non-HDL Cholesterol Calculated 72 mg/dL (0-129) HDL Cholesterol 35 mg/dL (40-60) Cholesterol/HDL Ratio 3.1 Thyroid Stimulating Hormone (TSH) 2.520 uIU/mL (0.358-3.74) Test 01/04/20 11:53 01/04/20 12:25 01/05/20 11:55 Troponin I Quantitative 0.025 ng/mL (0.000-0.055) Iron Level 19 ug/dL (50-170) Total Iron Binding Capacity 287 ug/dL (250-450) Iron Saturation 7 % (15-34) White Blood Count 13.1 x10^3/uL (4.0-11.0) Red Blood Count 7.80 x10^6/uL (3.50-5.40) Hemoglobin 17.4 g/dL (12.0-15.5) Hematocrit 55.2 % (36.0-47.0) Mean Corpuscular Volume 71 fL (79-100) Mean Corpuscular Hemoglobin 22 pg (25-35) Mean Corpuscular Hemoglobin Concent 32 g/dL (31-37) Red Cell Distribution Width 16.7 % (11.5-14.5) Platelet Count 260 x10^3/uL (140-400) Neutrophils (%) (Auto) 86 % (31-73) Lymphocytes (%) (Auto) 8 % (24-48) Monocytes (%) (Auto) 5 % (0-9) Eosinophils (%) (Auto) 0 % (0-3) Basophils (%) (Auto) 0 % (0-3) Neutrophils # (Auto) 11.2 x10^3/uL (1.8-7.7) Lymphocytes # (Auto) 1.1 x10^3/uL (1.0-4.8) Monocytes # (Auto) 0.7 x10^3/uL (0.0-1.1) Eosinophils # (Auto) 0.1 x10^3/uL (0.0-0.7) Basophils # (Auto) 0.0 x10^3/uL (0.0-0.2) Sodium Level 140 mmol/L (136-145) Potassium Level 3.7 mmol/L (3.5-5.1) Chloride Level 101 mmol/L (98-107) Carbon Dioxide Level 24 mmol/L (21-32) Anion Gap 15 (6-14) Blood Urea Nitrogen 19 mg/dL (7-20) Creatinine 0.8 mg/dL (0.6-1.0) Estimated GFR (Cockcroft-Gault) 87.7 BUN/Creatinine Ratio 24 (6-20) Glucose Level 155 mg/dL (70-99) Lactic Acid Level 1.7 mmol/L (0.4-2.0) Calcium Level 8.7 mg/dL (8.5-10.1) Total Bilirubin 1.3 mg/dL (0.2-1.0) Aspartate Amino Transf (AST/SGOT) 29 U/L (15-37) Alanine Aminotransferase (ALT/SGPT) 31 U/L (14-59) Alkaline Phosphatase 104 U/L (46-116) Total Protein 6.3 g/dL (6.4-8.2) Albumin 2.8 g/dL (3.4-5.0) Albumin/Globulin Ratio 0.8 (1.0-1.7) Laboratory Tests Test 01/05/20 11:55 White Blood Count 13.1 x10^3/uL (4.0-11.0) Red Blood Count 7.80 x10^6/uL (3.50-5.40) Hemoglobin 17.4 g/dL (12.0-15.5) Hematocrit 55.2 % (36.0-47.0) Mean Corpuscular Volume 71 fL (79-100) Mean Corpuscular Hemoglobin 22 pg (25-35) Mean Corpuscular Hemoglobin Concent 32 g/dL (31-37) Red Cell Distribution Width 16.7 % (11.5-14.5) Platelet Count 260 x10^3/uL (140-400) Neutrophils (%) (Auto) 86 % (31-73) Lymphocytes (%) (Auto) 8 % (24-48) Monocytes (%) (Auto) 5 % (0-9) Eosinophils (%) (Auto) 0 % (0-3) Basophils (%) (Auto) 0 % (0-3) Neutrophils # (Auto) 11.2 x10^3/uL (1.8-7.7) Lymphocytes # (Auto) 1.1 x10^3/uL (1.0-4.8) Monocytes # (Auto) 0.7 x10^3/uL (0.0-1.1) Eosinophils # (Auto) 0.1 x10^3/uL (0.0-0.7) Basophils # (Auto) 0.0 x10^3/uL (0.0-0.2) Sodium Level 140 mmol/L (136-145) Potassium Level 3.7 mmol/L (3.5-5.1) Chloride Level 101 mmol/L (98-107) Carbon Dioxide Level 24 mmol/L (21-32) Anion Gap 15 (6-14) Blood Urea Nitrogen 19 mg/dL (7-20) Creatinine 0.8 mg/dL (0.6-1.0) Estimated GFR (Cockcroft-Gault) 87.7 BUN/Creatinine Ratio 24 (6-20) Glucose Level 155 mg/dL (70-99) Lactic Acid Level 1.7 mmol/L (0.4-2.0) Calcium Level 8.7 mg/dL (8.5-10.1) Total Bilirubin 1.3 mg/dL (0.2-1.0) Aspartate Amino Transf (AST/SGOT) 29 U/L (15-37) Alanine Aminotransferase (ALT/SGPT) 31 U/L (14-59) Alkaline Phosphatase 104 U/L (46-116) Total Protein 6.3 g/dL (6.4-8.2) Albumin 2.8 g/dL (3.4-5.0) Albumin/Globulin Ratio 0.8 (1.0-1.7) Medications Current Medications Sodium Chloride 1,000 ml @ 1,000 mls/hr 1X ONCE IV Last administered on 01/03/20at 21:52; Start 01/03/20 at 21:30; Stop 01/03/20 at 22:29; Status DC Ondansetron HCl (Zofran) 4 mg 1X ONCE IVP Last administered on 01/03/20at 21:53; Start 01/03/20 at 22:00; Stop 01/03/20 at 22:01; Status DC Multi-Ingredient Mouthwash/Gargle (Gi Cocktail) 20 ml 1X ONCE SWSW Last administered on 01/03/20at 21:52; Start 01/03/20 at 22:00; Stop 01/03/20 at 22:01; Status DC Diltiazem HCl (Cardizem Iv Push) 10 mg 1X ONCE IVP Last administered on 01/03/20at 21:54; Start 01/03/20 at 22:00; Stop 01/03/20 at 22:01; Status DC Morphine Sulfate (Morphine Sulfate) 2 mg 1X ONCE IV Last administered on 01/03/20at 22:21; Start 01/03/20 at 22:30; Stop 01/03/20 at 22:31; Status DC Diltiazem HCl 125 mg/Sodium Chloride 125 ml @ 5 mls/hr CONT PRN IV SEE I/O RECORD Last administered on 01/03/20at 22:34; Start 01/03/20 at 22:30; Stop 01/04/20 at 10:17; Status DC Ondansetron HCl (Zofran) 4 mg PRN Q8HRS PRN IV NAUSEA/VOMITING 1ST CHOICE Last administered on 01/04/20at 11:45; Start 01/03/20 at 22:30; Stop 01/04/20 at 16:53; Status DC Sodium Chloride 1,000 ml @ 75 mls/hr [id number] IV Last administered on 01/03/20at 23:51; Start 01/03/20 at 23:00; Stop 01/04/20 at 22:59; Status DC Fish Oil (Fish Oil) 1,000 mg DAILY PO Last administered on 01/04/20at 10:37; Start 01/04/20 at 10:00 Potassium Chloride (Klor-Con) 10 meq DAILY PO ; Start 01/05/20 at 09:00 Vitamin D (Vitamin D3) 2,000 unit BID PO ; Start 01/05/20 at 10:00 Cetirizine HCl (ZyrTEC) 10 mg DAILY PO ; Start 01/04/20 at 10:00; Stop 01/05/20 at 13:07; Status DC Pantoprazole Sodium (Protonix) 40 mg DAILYAC PO Last administered on 01/05/20at 09:20; Start 01/04/20 at 11:30 Triamterene/HCTZ (Maxzide 37.5/ 25mg) 1 tab DAILY PO ; Start 01/04/20 at 10:00; Stop 01/04/20 at 10:17; Status DC Magnesium Sulfate 50 ml @ 25 mls/hr 1X ONCE IV Last administered on 01/04/20at 11:05; Start 01/04/20 at 10:15; Stop 01/04/20 at 12:14; Status DC Metoprolol Tartrate (Lopressor) 25 mg BID PO Last administered on 01/05/20at 09:21; Start 01/04/20 at 21:00 Metoprolol Tartrate (Lopressor) 25 mg 1X ONCE PO Last administered on 01/04/20at 10:37; Start 01/04/20 at 10:15; Stop 01/04/20 at 10:32; Status DC Aspirin (Ecotrin) 325 mg 1X ONCE PO Last administered on 01/04/20at 10:37; Start 01/04/20 at 10:15; Stop 01/04/20 at 10:32; Status DC Metoprolol Tartrate (Lopressor Vial) 5 mg 1X ONCE IVP Last administered on 01/04/20at 11:44; Start 01/04/20 at 12:00; Stop 01/04/20 at 12:01; Status DC Non-Formulary Medication 1 ea DAILY PO Last administered on 01/04/20at 11:44; Start 01/04/20 at 11:00 Digoxin (Lanoxin) 500 mcg 1X ONCE IV Last administered on 01/04/20at 15:23; Start 01/04/20 at 15:15; Stop 01/04/20 at 15:16; Status DC Ondansetron HCl (Zofran) 4 mg PRN Q4HRS PRN IV NAUSEA/VOMITING 1ST CHOICE Last administered on 01/05/20at 01:34; Start 01/04/20 at 17:00 Prochlorperazine Edisylate (Compazine) 10 mg PRN Q6HRS PRN IM NAUSEA/VOMITING- 2ND CHOICE; Start 01/04/20 at 17:00; Stop 01/04/20 at 17:08; Status DC Apixaban (Eliquis) 5 mg BID PO Last administered on 01/05/20at 09:21; Start 01/04/20 at 21:00; Stop 01/05/20 at 14:56; Status DC Prochlorperazine Edisylate (Compazine) 10 mg PRN Q6HRS PRN IVP NAUSEA/VOMITING- 2ND CHOICE Last administered on 01/05/20at 09:20; Start 01/04/20 at 17:15 Diltiazem HCl 125 mg/Sodium Chloride 125 ml @ 5 mls/hr CONT PRN IV SEE I/O RECORD Last administered on 01/05/20at 06:24; Start 01/05/20 at 05:45 Metoprolol Tartrate (Lopressor Vial) 5 mg 1X ONCE IVP Last administered on 01/05/20at 15:16; Start 01/05/20 at 13:45; Stop 01/05/20 at 13:46; Status DC Amino Acids/ Glycerin/ Electrolytes 1,000 ml @ 80 mls/hr [id number] IV Last administered on 01/05/20at 15:16; Start 01/05/20 at 13:45 Levofloxacin/ Dextrose 100 ml @ 100 mls/hr Q24H IV Last administered on 01/05/20at 15:17; Start 01/05/20 at 14:00 Metronidazole 100 ml @ 100 mls/hr Q8HRS IV Last administered on 01/05/20at 15:16; Start 01/05/20 at 14:00 Heparin Sodium/ Dextrose 250 ml @ 0 mls/hr CONT PRN IV PER PROTOCOL; Start 01/05/20 at 15:00 Heparin Sodium (Porcine) (Heparin Sodium) 2,100 unit PRN Q6HRS PRN IV FOR UFH LEVEL LESS THAN 0.2; Start 01/05/20 at 15:00 Apixaban (Eliquis) 5 mg BID PO ; Start 01/06/20 at 21:00 Active Scripts Active Reported Klor-Con 10 (Potassium Chloride) 10 Meq Tablet.er 10 Meq PO DAILY Omeprazole 20 Mg Capsule.dr 20 Mg PO DAILY Fish Oil 1,000 Mg Capsule ([place]-3 Fatty Acids/Fish Oil) 1 Each Capsule 1 Each PO DAILY Vitamin D (Cholecalciferol (Vitamin D3)) 2,000 Unit Capsule 2,000 Unit PO BID Claritin (Loratadine) 10 Mg Tablet 10 Mg PO DAILY Triamterene-Hctz 37.5-25 Mg Cp (Triamterene/Hydrochlorothiazid) 1 Each Capsule 1 Cap PO DAILY Vitals/I & O Vital Sign - Last 24 Hours 3/18/20 01/04/20 01/04/20 01/04/20 19:18 20:00 21:33 22:36 Temp 98.6 98.1 98.6 98.1 Pulse 108 108 116 Resp 20 18 B/P (MAP) 166/98 (120) 166/98 175/104 (127) Pulse Ox 91 94 O2 Delivery Room Air Room Air Room Air 01/05/20 01/05/20 01/05/20 01/05/20 03:42 07:00 08:00 09:21 Temp 97.9 97.4 97.9 97.4 Pulse 113 100 100 Resp 16 18 B/P (MAP) 162/114 (130) 161/106 (124) 161/106 Pulse Ox 94 92 O2 Delivery Room Air Room Air Room Air 01/05/20 01/05/20 01/05/20 10:37 15:07 15:16 Temp 97.8 98.0 97.8 98.0 Pulse 101 86 86 Resp 18 20 B/P (MAP) 149/112 (124) 144/92 (109) 144/92 Pulse Ox 91 91 O2 Delivery Room Air Room Air Intake and Output 01/04/20 01/04/20 01/05/20 15:00 23:00 07:00 Intake Total 540 ml 360 ml 120 ml Balance 540 ml 360 ml 120 ml Hemodynamically unstable?: Yes Is patient in severe pain?: No Is NPO status required?: Yes NEGRITA GARCIA MD Jan 05, 2020 16:27
[2020-01-05] MEDS: HEPARIN 25,000UTS/250ML PREMIX 250 ML IV PRN (16:46)
[2020-01-05] MEDS ORDERED: METOPROLOL TARTRATE 5 MG/5 ML VIAL. IVP SCH (17:00)
[2020-01-05] MEDS: METOPROLOL TARTRATE 5 MG/5 ML VIAL. IVP SCH ×2 (17:56→23:56)
[2020-01-05 19:13] VITALS: BP 120/95
[2020-01-05 22:51] VITALS: BP 142/102
[2020-01-05] MEDS: MORPHINE SULFATE 2 MG/ML VIAL. IV PRN (23:52)
[2020-01-06] MEDS: PROCHLORPERAZINE 10 MG/2 ML VIAL. IVP PRN (01:46)
[2020-01-06 03:20] VITALS: BP 157/100
[2020-01-06] MEDS: MORPHINE SULFATE 2 MG/ML VIAL. IV PRN ×2 (04:42→20:29)
[2020-01-06] MEDS: ONDANSETRON PF 4 MG/2 ML VIAL. IV PRN ×3 (04:43→23:26)
[2020-01-06] MEDS: AMINO AC 3%/ELECTROLYTE/GLYCER 1,000 ML IV SCH ×2 (06:09→23:17)
[2020-01-06] MEDS: METOPROLOL TARTRATE 5 MG/5 ML VIAL. IVP SCH ×4 (06:13→23:17)
[2020-01-06 07:00] VITALS: BP 135/98
[2020-01-06] MEDS: POTASSIUM CHLORIDE 10 MEQ TABLET.ER. PO SCH (09:00)
[2020-01-06] MEDS: OMEGA-3 FATTY ACIDS/FISH OIL 1,000 MG CAPSULE. PO SCH (09:00)
[2020-01-06] MEDS: CHOLECALCIFEROL (VITAMIN D3) 1,000 UNIT TABLET PO SCH ×2 (09:00→20:29)
--- NOTE | 2020-01-06 09:54 | PDOC ---
VÍCTOR EASON [employer] FINISHER 01/06/20 0953: SURGICAL PROGRESS NOTE Subjective resting does not feel great abdominal pain about the same--does feel bloated Vital Signs Vital Signs Date Time Temp Pulse Resp B/P (MAP) Pulse Ox O2 Delivery O2 Flow Rate FiO2 01/06/20 08:00 Room Air 01/06/20 07:00 98.6 107 16 135/98 (110) 93 98.6 I&O Intake and Output 01/06/20 07:00 Intake Total 100 ml Balance 100 ml Intake Oral 0 ml IV Total 100 ml # Voids 4 General: Alert, Oriented X3, Cooperative Abdomen: Soft, Other (distended, tender epigastric, no guarding or peritoneal signs ) Labs Laboratory Tests Test 01/04/20 11:53 01/04/20 12:25 01/05/20 11:55 01/05/20 23:15 Troponin I Quantitative 0.025 ng/mL (0.000-0.055) Iron Level 19 ug/dL (50-170) Total Iron Binding Capacity 287 ug/dL (250-450) Iron Saturation 7 % (15-34) White Blood Count 13.1 x10^3/uL (4.0-11.0) Red Blood Count 7.80 x10^6/uL (3.50-5.40) Hemoglobin 17.4 g/dL (12.0-15.5) Hematocrit 55.2 % (36.0-47.0) Mean Corpuscular Volume 71 fL (79-100) Mean Corpuscular Hemoglobin 22 pg (25-35) Mean Corpuscular Hemoglobin Concent 32 g/dL (31-37) Red Cell Distribution Width 16.7 % (11.5-14.5) Platelet Count 260 x10^3/uL (140-400) Neutrophils (%) (Auto) 86 % (31-73) Lymphocytes (%) (Auto) 8 % (24-48) Monocytes (%) (Auto) 5 % (0-9) Eosinophils (%) (Auto) 0 % (0-3) Basophils (%) (Auto) 0 % (0-3) Neutrophils # (Auto) 11.2 x10^3/uL (1.8-7.7) Lymphocytes # (Auto) 1.1 x10^3/uL (1.0-4.8) Monocytes # (Auto) 0.7 x10^3/uL (0.0-1.1) Eosinophils # (Auto) 0.1 x10^3/uL (0.0-0.7) Basophils # (Auto) 0.0 x10^3/uL (0.0-0.2) Sodium Level 140 mmol/L (136-145) Potassium Level 3.7 mmol/L (3.5-5.1) Chloride Level 101 mmol/L (98-107) Carbon Dioxide Level 24 mmol/L (21-32) Anion Gap 15 (6-14) Blood Urea Nitrogen 19 mg/dL (7-20) Creatinine 0.8 mg/dL (0.6-1.0) Estimated GFR (Cockcroft-Gault) 87.7 BUN/Creatinine Ratio 24 (6-20) Glucose Level 155 mg/dL (70-99) Lactic Acid Level 1.7 mmol/L (0.4-2.0) Calcium Level 8.7 mg/dL (8.5-10.1) Total Bilirubin 1.3 mg/dL (0.2-1.0) Aspartate Amino Transf (AST/SGOT) 29 U/L (15-37) Alanine Aminotransferase (ALT/SGPT) 31 U/L (14-59) Alkaline Phosphatase 104 U/L (46-116) Total Protein 6.3 g/dL (6.4-8.2) Albumin 2.8 g/dL (3.4-5.0) Albumin/Globulin Ratio 0.8 (1.0-1.7) Activated Partial Thromboplast Time > 150 SEC (24-38) Test 01/06/20 04:45 Activated Partial Thromboplast Time 39 SEC (24-38) Lactic Acid Level 1.3 mmol/L (0.4-2.0) Laboratory Tests Test 01/05/20 11:55 01/05/20 23:15 01/06/20 04:45 White Blood Count 13.1 x10^3/uL (4.0-11.0) Red Blood Count 7.80 x10^6/uL (3.50-5.40) Hemoglobin 17.4 g/dL (12.0-15.5) Hematocrit 55.2 % (36.0-47.0) Mean Corpuscular Volume 71 fL (79-100) Mean Corpuscular Hemoglobin 22 pg (25-35) Mean Corpuscular Hemoglobin Concent 32 g/dL (31-37) Red Cell Distribution Width 16.7 % (11.5-14.5) Platelet Count 260 x10^3/uL (140-400) Neutrophils (%) (Auto) 86 % (31-73) Lymphocytes (%) (Auto) 8 % (24-48) Monocytes (%) (Auto) 5 % (0-9) Eosinophils (%) (Auto) 0 % (0-3) Basophils (%) (Auto) 0 % (0-3) Neutrophils # (Auto) 11.2 x10^3/uL (1.8-7.7) Lymphocytes # (Auto) 1.1 x10^3/uL (1.0-4.8) Monocytes # (Auto) 0.7 x10^3/uL (0.0-1.1) Eosinophils # (Auto) 0.1 x10^3/uL (0.0-0.7) Basophils # (Auto) 0.0 x10^3/uL (0.0-0.2) Sodium Level 140 mmol/L (136-145) Potassium Level 3.7 mmol/L (3.5-5.1) Chloride Level 101 mmol/L (98-107) Carbon Dioxide Level 24 mmol/L (21-32) Anion Gap 15 (6-14) Blood Urea Nitrogen 19 mg/dL (7-20) Creatinine 0.8 mg/dL (0.6-1.0) Estimated GFR (Cockcroft-Gault) 87.7 BUN/Creatinine Ratio 24 (6-20) Glucose Level 155 mg/dL (70-99) Lactic Acid Level 1.7 mmol/L (0.4-2.0) 1.3 mmol/L (0.4-2.0) Calcium Level 8.7 mg/dL (8.5-10.1) Total Bilirubin 1.3 mg/dL (0.2-1.0) Aspartate Amino Transf (AST/SGOT) 29 U/L (15-37) Alanine Aminotransferase (ALT/SGPT) 31 U/L (14-59) Alkaline Phosphatase 104 U/L (46-116) Total Protein 6.3 g/dL (6.4-8.2) Albumin 2.8 g/dL (3.4-5.0) Albumin/Globulin Ratio 0.8 (1.0-1.7) Activated Partial Thromboplast Time > 150 SEC (24-38) 39 SEC (24-38) Problem List Problems Medical Problems: (1) Atrial fibrillation with RVR Status: Acute (2) Nausea & vomiting Status: Acute Assessment/Plan lactic normal, afebrile, cbc pending continue abx, NPO will have Dr Saucedo FU TAMERA SAUCEDO MD 01/06/20 1238: SURGICAL PROGRESS NOTE Assessment/Plan pt seen and examined belly soft would like something to drink recommend expectant treatment clears resume heparin drip VÍCTOR EASON APRN Jan 06, 2020 09:53 TAMERA SAUCEDO MD Jan 06, 2020 12:38
[2020-01-06 09:57] LABS: BASO # 0.1 x10^3/uL (0.0-0.2); BASO % 0 % (0-3); EOS % 0 % (0-3); HEMATOCRIT 54.2 % (36.0-47.0); HEMOGLOBIN 16.7 g/dL (12.0-15.5); LYMPH # 2.5 x10^3/uL (1.0-4.8); LYMPH % 16 % (24-48); MEAN CORPUSCULAR HEMOGLOBIN 22 pg (25-35); MEAN CORPUSCULAR HGB CONC 31 g/dL (31-37); MEAN CORPUSCULAR VOLUME 71 fL (79-100); MONO # 1.5 x10^3/uL (0.0-1.1); MONO % 10 % (0-9); NEUT # 11.5 x10^3/uL (1.8-7.7); NEUT % 74 % (31-73); PLATELET COUNT 285 x10^3/uL (140-400); RED BLOOD COUNT 7.65 x10^6/uL (3.50-5.40); RED CELL DISTRIBUTION WIDTH 16.2 % (11.5-14.5); WHITE BLOOD COUNT 15.5 x10^3/uL (4.0-11.0)
[2020-01-06 10:11] VITALS: BP 124/89
--- NOTE | 2020-01-06 10:22 | PDOC ---
Subjective: Subjective: Stomach hurt all night, pain is stable. Asks about the procedure today. Objective: Objective: Seen earlier this morning - nurse says was told pt would go to OR today but no consents yet. Now able to review surgery note - plans to continue NPO and atbx. Vital Signs: Vital Signs Date Time Temp Pulse Resp B/P (MAP) Pulse Ox O2 Delivery O2 Flow Rate FiO2 01/06/20 10:11 97.7 112 18 124/89 (101) 93 Room Air 97.7 Labs: Laboratory Tests Test 01/05/20 11:55 01/05/20 23:15 01/06/20 04:45 01/06/20 09:30 White Blood Count 13.1 x10^3/uL 15.5 x10^3/uL Red Blood Count 7.80 x10^6/uL 7.65 x10^6/uL Hemoglobin 17.4 g/dL 16.7 g/dL Hematocrit 55.2 % 54.2 % Mean Corpuscular Volume 71 fL 71 fL Mean Corpuscular Hemoglobin 22 pg 22 pg Mean Corpuscular Hemoglobin Concent 32 g/dL 31 g/dL Red Cell Distribution Width 16.7 % 16.2 % Platelet Count 260 x10^3/uL 285 x10^3/uL Neutrophils (%) (Auto) 86 % 74 % Lymphocytes (%) (Auto) 8 % 16 % Monocytes (%) (Auto) 5 % 10 % Eosinophils (%) (Auto) 0 % 0 % Basophils (%) (Auto) 0 % 0 % Neutrophils # (Auto) 11.2 x10^3/uL 11.5 x10^3/uL Lymphocytes # (Auto) 1.1 x10^3/uL 2.5 x10^3/uL Monocytes # (Auto) 0.7 x10^3/uL 1.5 x10^3/uL Eosinophils # (Auto) 0.1 x10^3/uL 0.0 x10^3/uL Basophils # (Auto) 0.0 x10^3/uL 0.1 x10^3/uL Sodium Level 140 mmol/L Potassium Level 3.7 mmol/L Chloride Level 101 mmol/L Carbon Dioxide Level 24 mmol/L Anion Gap 15 Blood Urea Nitrogen 19 mg/dL Creatinine 0.8 mg/dL Estimated GFR (Cockcroft-Gault) 87.7 BUN/Creatinine Ratio 24 Glucose Level 155 mg/dL Lactic Acid Level 1.7 mmol/L 1.3 mmol/L Calcium Level 8.7 mg/dL Total Bilirubin 1.3 mg/dL Aspartate Amino Transf (AST/SGOT) 29 U/L Alanine Aminotransferase (ALT/SGPT) 31 U/L Alkaline Phosphatase 104 U/L Total Protein 6.3 g/dL Albumin 2.8 g/dL Albumin/Globulin Ratio 0.8 Activated Partial Thromboplast Time > 150 SEC 39 SEC Imaging: CT A/P 01/04 IMPRESSION: 1. Findings suspicious for early ischemic bowel in the right lower quadrant small bowel loops. 2. Moderate ascites, possibly hemorrhagic. If there is any concern for biliary pathology, ultrasound of the hepatobiliary tree could be pursued. Echo <Conclusion> The left ventricular systolic function is normal and the ejection fraction is within normal range. The Ejection Fraction is 55-60%. There is normal LV segmental wall motion. The ascending aorta is mildly dilated at 3.4 cm. PE: GEN: NAD LUNGS: clear anteriorl HEART: irregular ABD: quiet, ?distended (she says no), upper discomfort NEURO/PSYCH: A & O 3 A/P: Abd pain A Fib Leukocytosis, iron deficiency Abnormal CT - findings suspicious for early ischemic bowel in the right lower quadrant small bowel loops, moderate ascites -- Continue per surgery. Change to IV PPI. Hemodynamically unstable?: No Is patient in severe pain?: No Is NPO status required?: Yes EMELIA GRAVES Jan 06, 2020 10:22
--- NOTE | 2020-01-06 12:06 | PDOC ---
[facility] PROGRESS NOTE Chief Complaint Chief Complaint Ar landis with RVR Abdominal pain (initially thought to be possibly ischemic bowel but I just talked to Dr. Sears he feels this is enteritis) 1. Breast cancer. 2. Mastectomy. 3. Hysterectomy. 4. Tubal ligation. 5. Colonoscopy. History of Present Illness History of Present Illness [id number] Patient seen and examined I discussed the case with Dr. Sears He feels this is not ischemic bowel as her white count is coming down and she feels a little better Surgery is on hold for now, instead we will just continue IV antibiotics We will need to readdress anticoagulation issues Rates better controlled [id number] Patient seen and examined Discussed with RN Chart reviewed Patient still having abdominal pain GI considering imaging Vitals/I&O Vitals/I&O: Vital Signs Date Time Temp Pulse Resp B/P (MAP) Pulse Ox O2 Delivery O2 Flow Rate FiO2 01/06/20 10:11 97.7 112 18 124/89 (101) 93 Room Air 97.7 I & O 01/05/20 01/05/20 01/06/20 15:00 23:00 07:00 Intake Total 0 ml 0 ml 100 ml Balance 0 ml 0 ml 100 ml Physical Exam General: Alert, Oriented X3, Cooperative Heart: Other (irregularly irregular) Abdomen: Soft, Other (distended, tender epigastric, no guarding or peritoneal signs ) Extremities: No clubbing, No cyanosis Skin: No rashes, No breakdown Labs Labs: Laboratory Tests Test 01/05/20 23:15 01/06/20 04:45 01/06/20 09:30 Activated Partial Thromboplast Time > 150 SEC (24-38) 39 SEC (24-38) Lactic Acid Level 1.3 mmol/L (0.4-2.0) White Blood Count 15.5 x10^3/uL (4.0-11.0) Red Blood Count 7.65 x10^6/uL (3.50-5.40) Hemoglobin 16.7 g/dL (12.0-15.5) Hematocrit 54.2 % (36.0-47.0) Mean Corpuscular Volume 71 fL (79-100) Mean Corpuscular Hemoglobin 22 pg (25-35) Mean Corpuscular Hemoglobin Concent 31 g/dL (31-37) Red Cell Distribution Width 16.2 % (11.5-14.5) Platelet Count 285 x10^3/uL (140-400) Neutrophils (%) (Auto) 74 % (31-73) Lymphocytes (%) (Auto) 16 % (24-48) Monocytes (%) (Auto) 10 % (0-9) Eosinophils (%) (Auto) 0 % (0-3) Basophils (%) (Auto) 0 % (0-3) Neutrophils # (Auto) 11.5 x10^3/uL (1.8-7.7) Lymphocytes # (Auto) 2.5 x10^3/uL (1.0-4.8) Monocytes # (Auto) 1.5 x10^3/uL (0.0-1.1) Eosinophils # (Auto) 0.0 x10^3/uL (0.0-0.7) Basophils # (Auto) 0.1 x10^3/uL (0.0-0.2) Assessment and Plan Assessmemt and Plan Problems Medical Problems: (1) Atrial fibrillation with RVR Status: Acute (2) Nausea & vomiting Status: Acute A. fib with RVR Abdominal pain (initially thought to be possibly ischemic bowel but I just talked to Dr. Sears he feels this is enteritis) 1. Breast cancer. 2. Mastectomy. 3. Hysterectomy. 4. Tubal ligation. 5. Colonoscopy. Plan IV antibiotics Considering re-anticoagulating as she is now not going for surgery Negative chronotropic agents for rate control Home meds DVT prophylaxis Full code Hope to start a clear liquid diet soon Trend white count Full code Appreciate subspecialist input Comment Review of Relevant I have reviewed the following items alondra (where applicable) has been applied. Medications: Current Medications Medications (Trade) Dose Ordered Sig/Amrit Route PRN Reason Start Time Stop Time Status Last Admin Dose Admin Metoprolol Tartrate (Lopressor Vial) 5 mg 1X ONCE IVP 01/05/20 13:45 01/05/20 13:46 DC 01/05/20 15:16 Amino Acids/ Glycerin/ Electrolytes 1,000 ml @ 80 mls/hr [id number] IV 01/05/20 13:45 01/06/20 06:09 Levofloxacin/ Dextrose 100 ml @ 100 mls/hr Q24H IV 01/05/20 14:00 01/05/20 15:17 Metronidazole 100 ml @ 100 mls/hr Q8HRS IV 01/05/20 14:00 01/06/20 05:04 Heparin Sodium/ Dextrose 250 ml @ 0 mls/hr CONT PRN IV PER PROTOCOL 01/05/20 15:00 01/05/20 16:46 Metoprolol Tartrate (Lopressor Vial) 5 mg Q6HRS IVP 01/05/20 18:00 01/06/20 06:13 Morphine Sulfate (Morphine Sulfate) 2 mg PRN Q2HR PRN IV PAIN 01/05/20 23:45 01/06/20 04:42 Hemodynamically unstable?: No Is patient in severe pain?: No Is NPO status required?: Yes SEJAL MCCLELLAN III DO Jan 06, 2020 12:06
--- NOTE | 2020-01-06 12:06 | NUR ---
SS following up with discharge planning. SS discussed with RN. Per pt's RN, surgery cancelled and pt on bowel rest. SS will continue to follow for discharge planning.
[2020-01-06] MEDS: PANTOPRAZOLE IV PUSH 40 MG VIAL. IVP SCH (12:25)
[2020-01-06] MEDS ORDERED: HEPARIN 25,000UTS/250ML PREMIX 250 ML IV PRN (12:45)
[2020-01-06] MEDS ORDERED: ANTI-COAG MONITOR BY PHARMACY. MC PRN (13:00)
[2020-01-06 15:00] VITALS: BP 127/85
--- NOTE | 2020-01-06 15:05 | PDOC ---
PROGRESS NOTES Subjective Subjective Patient seen and examined Objective Objective Vital Signs Date Time Temp Pulse Resp B/P (MAP) Pulse Ox O2 Delivery O2 Flow Rate FiO2 01/06/20 12:26 129 124/89 01/06/20 10:11 97.7 18 93 Room Air 97.7 Intake and Output 01/06/20 07:00 Intake Total 100 ml Balance 100 ml Intake Oral 0 ml IV Total 100 ml # Voids 4 Physical Exam Abdomen: Other (mild tenderness) Heart: Other (irregularly irregular) General: mild distress Lungs: Other (slightly decreased breath sounds) Assessment Assessment Problems Medical Problems: (1) Atrial fibrillation with RVR Status: Acute (2) Nausea & vomiting Status: Acute 1. AFIB RVR: rate improved. New onset. No surgical procedure today and heparin has been restarted. 2. DERAS/fatigue: improved. CP free 3. HTN: reasonable control. 4. Abdominal pain. Pain has improved. Vomiting has resolved. Being reviewed and followed by both GI and general surgery. Surgery on hold at this time. We'll continue to monitor. 5. Hx of breast CA with radical right mastectomy/chemo radiation 2014 Comment Review of Relevant I have reviewed the following items alondra (where applicable) has been applied. Labs Laboratory Tests Test 01/05/20 11:55 01/05/20 23:15 01/06/20 04:45 01/06/20 09:30 White Blood Count 13.1 x10^3/uL (4.0-11.0) 15.5 x10^3/uL (4.0-11.0) Red Blood Count 7.80 x10^6/uL (3.50-5.40) 7.65 x10^6/uL (3.50-5.40) Hemoglobin 17.4 g/dL (12.0-15.5) 16.7 g/dL (12.0-15.5) Hematocrit 55.2 % (36.0-47.0) 54.2 % (36.0-47.0) Mean Corpuscular Volume 71 fL (79-100) 71 fL (79-100) Mean Corpuscular Hemoglobin 22 pg (25-35) 22 pg (25-35) Mean Corpuscular Hemoglobin Concent 32 g/dL (31-37) 31 g/dL (31-37) Red Cell Distribution Width 16.7 % (11.5-14.5) 16.2 % (11.5-14.5) Platelet Count 260 x10^3/uL (140-400) 285 x10^3/uL (140-400) Neutrophils (%) (Auto) 86 % (31-73) 74 % (31-73) Lymphocytes (%) (Auto) 8 % (24-48) 16 % (24-48) Monocytes (%) (Auto) 5 % (0-9) 10 % (0-9) Eosinophils (%) (Auto) 0 % (0-3) 0 % (0-3) Basophils (%) (Auto) 0 % (0-3) 0 % (0-3) Neutrophils # (Auto) 11.2 x10^3/uL (1.8-7.7) 11.5 x10^3/uL (1.8-7.7) Lymphocytes # (Auto) 1.1 x10^3/uL (1.0-4.8) 2.5 x10^3/uL (1.0-4.8) Monocytes # (Auto) 0.7 x10^3/uL (0.0-1.1) 1.5 x10^3/uL (0.0-1.1) Eosinophils # (Auto) 0.1 x10^3/uL (0.0-0.7) 0.0 x10^3/uL (0.0-0.7) Basophils # (Auto) 0.0 x10^3/uL (0.0-0.2) 0.1 x10^3/uL (0.0-0.2) Sodium Level 140 mmol/L (136-145) Potassium Level 3.7 mmol/L (3.5-5.1) Chloride Level 101 mmol/L (98-107) Carbon Dioxide Level 24 mmol/L (21-32) Anion Gap 15 (6-14) Blood Urea Nitrogen 19 mg/dL (7-20) Creatinine 0.8 mg/dL (0.6-1.0) Estimated GFR (Cockcroft-Gault) 87.7 BUN/Creatinine Ratio 24 (6-20) Glucose Level 155 mg/dL (70-99) Lactic Acid Level 1.7 mmol/L (0.4-2.0) 1.3 mmol/L (0.4-2.0) Calcium Level 8.7 mg/dL (8.5-10.1) Total Bilirubin 1.3 mg/dL (0.2-1.0) Aspartate Amino Transf (AST/SGOT) 29 U/L (15-37) Alanine Aminotransferase (ALT/SGPT) 31 U/L (14-59) Alkaline Phosphatase 104 U/L (46-116) Total Protein 6.3 g/dL (6.4-8.2) Albumin 2.8 g/dL (3.4-5.0) Albumin/Globulin Ratio 0.8 (1.0-1.7) Activated Partial Thromboplast Time > 150 SEC (24-38) 39 SEC (24-38) Laboratory Tests Test 01/05/20 23:15 01/06/20 04:45 01/06/20 09:30 Activated Partial Thromboplast Time > 150 SEC (24-38) 39 SEC (24-38) Lactic Acid Level 1.3 mmol/L (0.4-2.0) White Blood Count 15.5 x10^3/uL (4.0-11.0) Red Blood Count 7.65 x10^6/uL (3.50-5.40) Hemoglobin 16.7 g/dL (12.0-15.5) Hematocrit 54.2 % (36.0-47.0) Mean Corpuscular Volume 71 fL (79-100) Mean Corpuscular Hemoglobin 22 pg (25-35) Mean Corpuscular Hemoglobin Concent 31 g/dL (31-37) Red Cell Distribution Width 16.2 % (11.5-14.5) Platelet Count 285 x10^3/uL (140-400) Neutrophils (%) (Auto) 74 % (31-73) Lymphocytes (%) (Auto) 16 % (24-48) Monocytes (%) (Auto) 10 % (0-9) Eosinophils (%) (Auto) 0 % (0-3) Basophils (%) (Auto) 0 % (0-3) Neutrophils # (Auto) 11.5 x10^3/uL (1.8-7.7) Lymphocytes # (Auto) 2.5 x10^3/uL (1.0-4.8) Monocytes # (Auto) 1.5 x10^3/uL (0.0-1.1) Eosinophils # (Auto) 0.0 x10^3/uL (0.0-0.7) Basophils # (Auto) 0.1 x10^3/uL (0.0-0.2) Medications Current Medications Sodium Chloride 1,000 ml @ 1,000 mls/hr 1X ONCE IV Last administered on 01/03/20at 21:52; Start 01/03/20 at 21:30; Stop 01/03/20 at 22:29; Status DC Ondansetron HCl (Zofran) 4 mg 1X ONCE IVP Last administered on 01/03/20at 21:53; Start 01/03/20 at 22:00; Stop 01/03/20 at 22:01; Status DC Multi-Ingredient Mouthwash/Gargle (Gi Cocktail) 20 ml 1X ONCE SWSW Last administered on 01/03/20at 21:52; Start 01/03/20 at 22:00; Stop 01/03/20 at 22:01; Status DC Diltiazem HCl (Cardizem Iv Push) 10 mg 1X ONCE IVP Last administered on 01/03/20at 21:54; Start 01/03/20 at 22:00; Stop 01/03/20 at 22:01; Status DC Morphine Sulfate (Morphine Sulfate) 2 mg 1X ONCE IV Last administered on 01/03/20at 22:21; Start 01/03/20 at 22:30; Stop 01/03/20 at 22:31; Status DC Diltiazem HCl 125 mg/Sodium Chloride 125 ml @ 5 mls/hr CONT PRN IV SEE I/O RECORD Last administered on 01/03/20at 22:34; Start 01/03/20 at 22:30; Stop 01/04/20 at 10:17; Status DC Ondansetron HCl (Zofran) 4 mg PRN Q8HRS PRN IV NAUSEA/VOMITING 1ST CHOICE Last administered on 01/04/20at 11:45; Start 01/03/20 at 22:30; Stop 01/04/20 at 16:53; Status DC Sodium Chloride 1,000 ml @ 75 mls/hr [id number] IV Last administered on 01/03/20at 23:51; Start 01/03/20 at 23:00; Stop 01/04/20 at 22:59; Status DC Fish Oil (Fish Oil) 1,000 mg DAILY PO Last administered on 01/04/20at 10:37; Start 01/04/20 at 10:00 Potassium Chloride (Klor-Con) 10 meq DAILY PO ; Start 01/05/20 at 09:00 Vitamin D (Vitamin D3) 2,000 unit BID PO ; Start 01/05/20 at 10:00 Cetirizine HCl (ZyrTEC) 10 mg DAILY PO ; Start 01/04/20 at 10:00; Stop 01/05/20 at 13:07; Status DC Pantoprazole Sodium (Protonix) 40 mg DAILYAC PO Last administered on 01/05/20at 09:20; Start 01/04/20 at 11:30; Stop 01/06/20 at 10:23; Status DC Triamterene/HCTZ (Maxzide 37.5/ 25mg) 1 tab DAILY PO ; Start 01/04/20 at 10:00; Stop 01/04/20 at 10:17; Status DC Magnesium Sulfate 50 ml @ 25 mls/hr 1X ONCE IV Last administered on 01/04/20at 11:05; Start 01/04/20 at 10:15; Stop 01/04/20 at 12:14; Status DC Metoprolol Tartrate (Lopressor) 25 mg BID PO Last administered on 01/05/20at 09:21; Start 01/04/20 at 21:00; Stop 01/05/20 at 16:51; Status DC Metoprolol Tartrate (Lopressor) 25 mg 1X ONCE PO Last administered on 01/04/20at 10:37; Start 01/04/20 at 10:15; Stop 01/04/20 at 10:32; Status DC Aspirin (Ecotrin) 325 mg 1X ONCE PO Last administered on 01/04/20at 10:37; Start 01/04/20 at 10:15; Stop 01/04/20 at 10:32; Status DC Metoprolol Tartrate (Lopressor Vial) 5 mg 1X ONCE IVP Last administered on 01/04/20at 11:44; Start 01/04/20 at 12:00; Stop 01/04/20 at 12:01; Status DC Non-Formulary Medication 1 ea DAILY PO Last administered on 01/04/20at 11:44; Start 01/04/20 at 11:00 Digoxin (Lanoxin) 500 mcg 1X ONCE IV Last administered on 01/04/20at 15:23; Start 01/04/20 at 15:15; Stop 01/04/20 at 15:16; Status DC Ondansetron HCl (Zofran) 4 mg PRN Q4HRS PRN IV NAUSEA/VOMITING 1ST CHOICE Last administered on 01/06/20at 04:43; Start 01/04/20 at 17:00 Prochlorperazine Edisylate (Compazine) 10 mg PRN Q6HRS PRN IM NAUSEA/VOMITING- 2ND CHOICE; Start 01/04/20 at 17:00; Stop 01/04/20 at 17:08; Status DC Apixaban (Eliquis) 5 mg BID PO Last administered on 01/05/20at 09:21; Start 01/04/20 at 21:00; Stop 01/05/20 at 14:56; Status DC Prochlorperazine Edisylate (Compazine) 10 mg PRN Q6HRS PRN IVP NAUSEA/VOMITING- 2ND CHOICE Last administered on 01/06/20at 01:46; Start 01/04/20 at 17:15 Diltiazem HCl 125 mg/Sodium Chloride 125 ml @ 5 mls/hr CONT PRN IV SEE I/O RECORD Last administered on 01/05/20at 06:24; Start 01/05/20 at 05:45 Metoprolol Tartrate (Lopressor Vial) 5 mg 1X ONCE IVP Last administered on 01/05/20at 15:16; Start 01/05/20 at 13:45; Stop 01/05/20 at 13:46; Status DC Amino Acids/ Glycerin/ Electrolytes 1,000 ml @ 80 mls/hr [id number] IV Last administered on 01/06/20at 06:09; Start 01/05/20 at 13:45 Levofloxacin/ Dextrose 100 ml @ 100 mls/hr Q24H IV Last administered on 01/05/20at 15:17; Start 01/05/20 at 14:00 Metronidazole 100 ml @ 100 mls/hr Q8HRS IV Last administered on 01/06/20at 05:04; Start 01/05/20 at 14:00 Heparin Sodium/ Dextrose 250 ml @ 0 mls/hr CONT PRN IV PER PROTOCOL Last administered on 01/05/20at 16:46; Start 01/05/20 at 15:00 Heparin Sodium (Porcine) (Heparin Sodium) 2,100 unit PRN Q6HRS PRN IV FOR PTT LESS THAN 24; Start 01/05/20 at 15:00 Apixaban (Eliquis) 5 mg BID PO ; Start 01/06/20 at 21:00; Stop 01/06/20 at 12:46; Status DC Metoprolol Tartrate (Lopressor Vial) 5 mg Q6HRS IVP ; Start 01/05/20 at 17:00; Stop 01/05/20 at 17:01; Status DC Metoprolol Tartrate (Lopressor Vial) 5 mg Q6HRS IVP Last administered on 01/06/20at 12:26; Start 01/05/20 at 18:00 Morphine Sulfate (Morphine Sulfate) 2 mg PRN Q2HR PRN IV PAIN Last administered on 01/06/20at 04:42; Start 01/05/20 at 23:45 Pantoprazole Sodium (PROTONIX VIAL for IV PUSH) 40 mg DAILYAC IVP Last administered on 01/06/20at 12:25; Start 01/06/20 at 11:30 Heparin Sodium/ Dextrose 250 ml @ 0 mls/hr CONT PRN IV SEE I/O RECORD; Start 01/06/20 at 12:45; Status UNV Info (Anti-Coagulation Monitoring By Pharmacy) 1 each PRN DAILY PRN MC SEE COMMENTS Last administered on 01/06/20at 12:57; Start 01/06/20 at 13:00 Lactobacillus Rhamnosus (Culturelle) 1 cap BID PO ; Start 01/06/20 at 21:00 Active Scripts Active Reported Klor-Con 10 (Potassium Chloride) 10 Meq Tablet.er 10 Meq PO DAILY Omeprazole 20 Mg Capsule.dr 20 Mg PO DAILY Fish Oil 1,000 Mg Capsule ([place]-3 Fatty Acids/Fish Oil) 1 Each Capsule 1 Each PO DAILY Vitamin D (Cholecalciferol (Vitamin D3)) 2,000 Unit Capsule 2,000 Unit PO BID Claritin (Loratadine) 10 Mg Tablet 10 Mg PO DAILY Triamterene-Hctz 37.5-25 Mg Cp (Triamterene/Hydrochlorothiazid) 1 Each Capsule 1 Cap PO DAILY Vitals/I & O Vital Sign - Last 24 Hours 01/05/20 01/05/20 01/05/20 01/05/20 15:07 15:16 17:56 19:13 Temp 98.0 98.1 98.0 98.1 Pulse 86 86 86 74 Resp 20 18 B/P (MAP) 144/92 (109) 144/92 144/92 120/95 (103) Pulse Ox 91 92 O2 Delivery Room Air Room Air 01/05/20 01/05/20 01/05/20 01/05/20 20:15 22:51 23:52 23:56 Temp 98.0 98.0 Pulse 105 105 Resp 18 18 B/P (MAP) 142/102 (115) 142/102 Pulse Ox 93 93 O2 Delivery Room Air Room Air Room Air 01/06/20 01/06/20 01/06/20 01/06/20 00:22 03:20 04:42 05:12 Temp 99.0 99.0 Pulse 102 Resp 18 16 18 18 B/P (MAP) 157/100 (119) Pulse Ox 93 94 94 94 O2 Delivery Room Air Room Air Room Air Room Air 01/06/20 01/06/20 01/06/20 01/06/20 06:13 07:00 08:00 10:11 Temp 98.6 97.7 98.6 97.7 Pulse 102 107 112 Resp 16 18 B/P (MAP) 157/100 135/98 (110) 124/89 (101) Pulse Ox 93 93 O2 Delivery Room Air Room Air Room Air 01/06/20 12:26 Pulse 129 B/P (MAP) 124/89 Intake and Output 01/05/20 01/05/20 01/06/20 15:00 23:00 07:00 Intake Total 0 ml 0 ml 100 ml Balance 0 ml 0 ml 100 ml Hemodynamically unstable?: No Is patient in severe pain?: No Is NPO status required?: Yes NEGRITA GARCIA MD Jan 06, 2020 15:05
[2020-01-06 19:12] VITALS: BP 124/80
[2020-01-06] MEDS: LACTOBACILLUS RHAMNOSUS GG 1 CAPSULE. PO SCH (20:28)
[2020-01-06] MEDS ORDERED: APIXABAN 5 MG TABLET. PO SCH (21:00)
[2020-01-06 23:21] VITALS: BP 131/98
[2020-01-07 02:40] VITALS: BP 140/103
[2020-01-07] MEDS: AMINO AC 3%/ELECTROLYTE/GLYCER 1,000 ML IV SCH ×2 (03:15→13:06)
[2020-01-07 05:15] LABS: BASO # 0.1 x10^3/uL (0.0-0.2); BASO % 1 % (0-3); EOS # 0.1 x10^3/uL (0.0-0.7); EOS % 1 % (0-3); HEMATOCRIT 50.6 % (36.0-47.0); HEMOGLOBIN 15.9 g/dL (12.0-15.5); LYMPH # 1.9 x10^3/uL (1.0-4.8); LYMPH % 14 % (24-48); MEAN CORPUSCULAR HEMOGLOBIN 22 pg (25-35); MEAN CORPUSCULAR HGB CONC 31 g/dL (31-37); MEAN CORPUSCULAR VOLUME 71 fL (79-100); MONO # 1.4 x10^3/uL (0.0-1.1); MONO % 11 % (0-9); NEUT # 9.8 x10^3/uL (1.8-7.7); NEUT % 74 % (31-73); PLATELET COUNT 266 x10^3/uL (140-400); RED BLOOD COUNT 7.17 x10^6/uL (3.50-5.40); RED CELL DISTRIBUTION WIDTH 16.3 % (11.5-14.5); WHITE BLOOD COUNT 13.2 x10^3/uL (4.0-11.0)
[2020-01-07] MEDS: METOPROLOL TARTRATE 5 MG/5 ML VIAL. IVP SCH ×2 (05:33→12:00)
[2020-01-07] MEDS: ONDANSETRON PF 4 MG/2 ML VIAL. IV PRN ×2 (05:33→12:00)
[2020-01-07 07:00] VITALS: BP 158/107
--- NOTE | 2020-01-07 08:28 | PDOC ---
PROGRESS NOTES Chief Complaint Chief Complaint Abdominal pain - initially thought to be possibly ischemic bowel, possibly simply enteritis Moderate ascites AFIB RVR - rate improved, on cardizem and heparin GTTs Shortness of breath - likely related to above HTN - controlled on CCB infusion Hx of breast CA with radical right mastectomy/chemo radiation 2014 History of Present Illness History of Present Illness Ms Saab is a 64yo F w/ PMHx HTN, chronic lymphedema to right arm, diverticulosis, GERD, breast ca s/p right radical mastectomy and chemo/radiation therapy 2014, ex-smoker who p/w abdominal pain and nausea, vomiting, found in afib with RVR. GI, general surgery and Cardiology consulted. 01/04: Pain persists. CT abdomen pelvis read as possible early ischemic small bowel in RLQ and moderate ascites that may be hemorrhagic in nature. 01/05: Discussed the case with Dr. Sears. He feels this is not ischemic bowel as her white count is coming down and she feels a little better. Surgery is on hold for now, instead we will just continue IV antibiotics Overnight had a small BM. Still with abdominal pain, but it is improving. Still with nausea equivalent to when she had her chemo. Still in afib on heparin GTT. Vitals Vitals Vital Signs Date Time Temp Pulse Resp B/P (MAP) Pulse Ox O2 Delivery O2 Flow Rate FiO2 01/07/20 07:00 97.5 138 16 158/107 (124) 94 Room Air 97.5 Physical Exam General: mild distress Heart: Other (irregularly irregular) Abdomen: Other (mild tenderness) Extremities: No clubbing, No cyanosis Skin: No rashes, No breakdown Labs LABS Laboratory Tests Test 01/06/20 09:30 01/06/20 19:15 01/07/20 04:46 White Blood Count 15.5 x10^3/uL (4.0-11.0) 13.2 x10^3/uL (4.0-11.0) Red Blood Count 7.65 x10^6/uL (3.50-5.40) 7.17 x10^6/uL (3.50-5.40) Hemoglobin 16.7 g/dL (12.0-15.5) 15.9 g/dL (12.0-15.5) Hematocrit 54.2 % (36.0-47.0) 50.6 % (36.0-47.0) Mean Corpuscular Volume 71 fL (79-100) 71 fL (79-100) Mean Corpuscular Hemoglobin 22 pg (25-35) 22 pg (25-35) Mean Corpuscular Hemoglobin Concent 31 g/dL (31-37) 31 g/dL (31-37) Red Cell Distribution Width 16.2 % (11.5-14.5) 16.3 % (11.5-14.5) Platelet Count 285 x10^3/uL (140-400) 266 x10^3/uL (140-400) Neutrophils (%) (Auto) 74 % (31-73) 74 % (31-73) Lymphocytes (%) (Auto) 16 % (24-48) 14 % (24-48) Monocytes (%) (Auto) 10 % (0-9) 11 % (0-9) Eosinophils (%) (Auto) 0 % (0-3) 1 % (0-3) Basophils (%) (Auto) 0 % (0-3) 1 % (0-3) Neutrophils # (Auto) 11.5 x10^3/uL (1.8-7.7) 9.8 x10^3/uL (1.8-7.7) Lymphocytes # (Auto) 2.5 x10^3/uL (1.0-4.8) 1.9 x10^3/uL (1.0-4.8) Monocytes # (Auto) 1.5 x10^3/uL (0.0-1.1) 1.4 x10^3/uL (0.0-1.1) Eosinophils # (Auto) 0.0 x10^3/uL (0.0-0.7) 0.1 x10^3/uL (0.0-0.7) Basophils # (Auto) 0.1 x10^3/uL (0.0-0.2) 0.1 x10^3/uL (0.0-0.2) Activated Partial Thromboplast Time > 150 SEC (24-38) 38 SEC (24-38) Assessment and Plan Assessmemt and Plan Problems Medical Problems: (1) Atrial fibrillation with RVR Status: Acute (2) Nausea & vomiting Status: Acute Comment Review of Relevant I have reviewed the following items alondra (where applicable) has been applied. Labs Laboratory Tests Test 01/05/20 11:55 01/05/20 23:15 01/06/20 04:45 01/06/20 09:30 White Blood Count 13.1 x10^3/uL (4.0-11.0) 15.5 x10^3/uL (4.0-11.0) Red Blood Count 7.80 x10^6/uL (3.50-5.40) 7.65 x10^6/uL (3.50-5.40) Hemoglobin 17.4 g/dL (12.0-15.5) 16.7 g/dL (12.0-15.5) Hematocrit 55.2 % (36.0-47.0) 54.2 % (36.0-47.0) Mean Corpuscular Volume 71 fL (79-100) 71 fL (79-100) Mean Corpuscular Hemoglobin 22 pg (25-35) 22 pg (25-35) Mean Corpuscular Hemoglobin Concent 32 g/dL (31-37) 31 g/dL (31-37) Red Cell Distribution Width 16.7 % (11.5-14.5) 16.2 % (11.5-14.5) Platelet Count 260 x10^3/uL (140-400) 285 x10^3/uL (140-400) Neutrophils (%) (Auto) 86 % (31-73) 74 % (31-73) Lymphocytes (%) (Auto) 8 % (24-48) 16 % (24-48) Monocytes (%) (Auto) 5 % (0-9) 10 % (0-9) Eosinophils (%) (Auto) 0 % (0-3) 0 % (0-3) Basophils (%) (Auto) 0 % (0-3) 0 % (0-3) Neutrophils # (Auto) 11.2 x10^3/uL (1.8-7.7) 11.5 x10^3/uL (1.8-7.7) Lymphocytes # (Auto) 1.1 x10^3/uL (1.0-4.8) 2.5 x10^3/uL (1.0-4.8) Monocytes # (Auto) 0.7 x10^3/uL (0.0-1.1) 1.5 x10^3/uL (0.0-1.1) Eosinophils # (Auto) 0.1 x10^3/uL (0.0-0.7) 0.0 x10^3/uL (0.0-0.7) Basophils # (Auto) 0.0 x10^3/uL (0.0-0.2) 0.1 x10^3/uL (0.0-0.2) Sodium Level 140 mmol/L (136-145) Potassium Level 3.7 mmol/L (3.5-5.1) Chloride Level 101 mmol/L (98-107) Carbon Dioxide Level 24 mmol/L (21-32) Anion Gap 15 (6-14) Blood Urea Nitrogen 19 mg/dL (7-20) Creatinine 0.8 mg/dL (0.6-1.0) Estimated GFR (Cockcroft-Gault) 87.7 BUN/Creatinine Ratio 24 (6-20) Glucose Level 155 mg/dL (70-99) Lactic Acid Level 1.7 mmol/L (0.4-2.0) 1.3 mmol/L (0.4-2.0) Calcium Level 8.7 mg/dL (8.5-10.1) Total Bilirubin 1.3 mg/dL (0.2-1.0) Aspartate Amino Transf (AST/SGOT) 29 U/L (15-37) Alanine Aminotransferase (ALT/SGPT) 31 U/L (14-59) Alkaline Phosphatase 104 U/L (46-116) Total Protein 6.3 g/dL (6.4-8.2) Albumin 2.8 g/dL (3.4-5.0) Albumin/Globulin Ratio 0.8 (1.0-1.7) Activated Partial Thromboplast Time > 150 SEC (24-38) 39 SEC (24-38) Test 01/06/20 19:15 01/07/20 04:46 Activated Partial Thromboplast Time > 150 SEC (24-38) 38 SEC (24-38) White Blood Count 13.2 x10^3/uL (4.0-11.0) Red Blood Count 7.17 x10^6/uL (3.50-5.40) Hemoglobin 15.9 g/dL (12.0-15.5) Hematocrit 50.6 % (36.0-47.0) Mean Corpuscular Volume 71 fL (79-100) Mean Corpuscular Hemoglobin 22 pg (25-35) Mean Corpuscular Hemoglobin Concent 31 g/dL (31-37) Red Cell Distribution Width 16.3 % (11.5-14.5) Platelet Count 266 x10^3/uL (140-400) Neutrophils (%) (Auto) 74 % (31-73) Lymphocytes (%) (Auto) 14 % (24-48) Monocytes (%) (Auto) 11 % (0-9) Eosinophils (%) (Auto) 1 % (0-3) Basophils (%) (Auto) 1 % (0-3) Neutrophils # (Auto) 9.8 x10^3/uL (1.8-7.7) Lymphocytes # (Auto) 1.9 x10^3/uL (1.0-4.8) Monocytes # (Auto) 1.4 x10^3/uL (0.0-1.1) Eosinophils # (Auto) 0.1 x10^3/uL (0.0-0.7) Basophils # (Auto) 0.1 x10^3/uL (0.0-0.2) Laboratory Tests Test 01/06/20 09:30 01/06/20 19:15 01/07/20 04:46 White Blood Count 15.5 x10^3/uL (4.0-11.0) 13.2 x10^3/uL (4.0-11.0) Red Blood Count 7.65 x10^6/uL (3.50-5.40) 7.17 x10^6/uL (3.50-5.40) Hemoglobin 16.7 g/dL (12.0-15.5) 15.9 g/dL (12.0-15.5) Hematocrit 54.2 % (36.0-47.0) 50.6 % (36.0-47.0) Mean Corpuscular Volume 71 fL (79-100) 71 fL (79-100) Mean Corpuscular Hemoglobin 22 pg (25-35) 22 pg (25-35) Mean Corpuscular Hemoglobin Concent 31 g/dL (31-37) 31 g/dL (31-37) Red Cell Distribution Width 16.2 % (11.5-14.5) 16.3 % (11.5-14.5) Platelet Count 285 x10^3/uL (140-400) 266 x10^3/uL (140-400) Neutrophils (%) (Auto) 74 % (31-73) 74 % (31-73) Lymphocytes (%) (Auto) 16 % (24-48) 14 % (24-48) Monocytes (%) (Auto) 10 % (0-9) 11 % (0-9) Eosinophils (%) (Auto) 0 % (0-3) 1 % (0-3) Basophils (%) (Auto) 0 % (0-3) 1 % (0-3) Neutrophils # (Auto) 11.5 x10^3/uL (1.8-7.7) 9.8 x10^3/uL (1.8-7.7) Lymphocytes # (Auto) 2.5 x10^3/uL (1.0-4.8) 1.9 x10^3/uL (1.0-4.8) Monocytes # (Auto) 1.5 x10^3/uL (0.0-1.1) 1.4 x10^3/uL (0.0-1.1) Eosinophils # (Auto) 0.0 x10^3/uL (0.0-0.7) 0.1 x10^3/uL (0.0-0.7) Basophils # (Auto) 0.1 x10^3/uL (0.0-0.2) 0.1 x10^3/uL (0.0-0.2) Activated Partial Thromboplast Time > 150 SEC (24-38) 38 SEC (24-38) Medications Current Medications Sodium Chloride 1,000 ml @ 1,000 mls/hr 1X ONCE IV Last administered on 01/03/20at 21:52; Start 01/03/20 at 21:30; Stop 01/03/20 at 22:29; Status DC Ondansetron HCl (Zofran) 4 mg 1X ONCE IVP Last administered on 01/03/20at 21:53; Start 01/03/20 at 22:00; Stop 01/03/20 at 22:01; Status DC Multi-Ingredient Mouthwash/Gargle (Gi Cocktail) 20 ml 1X ONCE SWSW Last administered on 01/03/20at 21:52; Start 01/03/20 at 22:00; Stop 01/03/20 at 22:01; Status DC Diltiazem HCl (Cardizem Iv Push) 10 mg 1X ONCE IVP Last administered on 01/03/20at 21:54; Start 01/03/20 at 22:00; Stop 01/03/20 at 22:01; Status DC Morphine Sulfate (Morphine Sulfate) 2 mg 1X ONCE IV Last administered on 01/03/20at 22:21; Start 01/03/20 at 22:30; Stop 01/03/20 at 22:31; Status DC Diltiazem HCl 125 mg/Sodium Chloride 125 ml @ 5 mls/hr CONT PRN IV SEE I/O RECORD Last administered on 01/03/20at 22:34; Start 01/03/20 at 22:30; Stop 01/04/20 at 10:17; Status DC Ondansetron HCl (Zofran) 4 mg PRN Q8HRS PRN IV NAUSEA/VOMITING 1ST CHOICE Last administered on 01/04/20at 11:45; Start 01/03/20 at 22:30; Stop 01/04/20 at 16:53 ; Status DC Sodium Chloride 1,000 ml @ 75 mls/hr [id number] IV Last administered on 01/03/20at 23:51; Start 01/03/20 at 23:00; Stop 01/04/20 at 22:59; Status DC Fish Oil (Fish Oil) 1,000 mg DAILY PO Last administered on 01/04/20at 10:37; Start 01/04/20 at 10:00 Potassium Chloride (Klor-Con) 10 meq DAILY PO ; Start 01/05/20 at 09:00 Vitamin D (Vitamin D3) 2,000 unit BID PO Last administered on 01/06/20at 20:29; Start 01/05/20 at 10:00 Cetirizine HCl (ZyrTEC) 10 mg DAILY PO ; Start 01/04/20 at 10:00; Stop 01/05/20 at 13:07; Status DC Pantoprazole Sodium (Protonix) 40 mg DAILYAC PO Last administered on 01/05/20at 09:20; Start 01/04/20 at 11:30; Stop 01/06/20 at 10:23; Status DC Triamterene/HCTZ (Maxzide 37.5/ 25mg) 1 tab DAILY PO ; Start 01/04/20 at 10:00; Stop 01/04/20 at 10:17; Status DC Magnesium Sulfate 50 ml @ 25 mls/hr 1X ONCE IV Last administered on 01/04/20at 11:05; Start 01/04/20 at 10:15; Stop 01/04/20 at 12:14; Status DC Metoprolol Tartrate (Lopressor) 25 mg BID PO Last administered on 01/05/20at 09:21; Start 01/04/20 at 21:00; Stop 01/05/20 at 16:51; Status DC Metoprolol Tartrate (Lopressor) 25 mg 1X ONCE PO Last administered on 01/04/20at 10:37; Start 01/04/20 at 10:15; Stop 01/04/20 at 10:32; Status DC Aspirin (Ecotrin) 325 mg 1X ONCE PO Last administered on 01/04/20at 10:37; Start 01/04/20 at 10:15; Stop 01/04/20 at 10:32; Status DC Metoprolol Tartrate (Lopressor Vial) 5 mg 1X ONCE IVP Last administered on 01/04/20at 11:44; Start 01/04/20 at 12:00; Stop 01/04/20 at 12:01; Status DC Non-Formulary Medication 1 ea DAILY PO Last administered on 01/04/20at 11:44; Start 01/04/20 at 11:00 Digoxin (Lanoxin) 500 mcg 1X ONCE IV Last administered on 01/04/20at 15:23; Start 01/04/20 at 15:15; Stop 01/04/20 at 15:16; Status DC Ondansetron HCl (Zofran) 4 mg PRN Q4HRS PRN IV NAUSEA/VOMITING 1ST CHOICE Last administered on 01/07/20at 05:33; Start 01/04/20 at 17:00 Prochlorperazine Edisylate (Compazine) 10 mg PRN Q6HRS PRN IM NAUSEA/VOMITING- 2ND CHOICE; Start 01/04/20 at 17:00; Stop 01/04/20 at 17:08; Status DC Apixaban (Eliquis) 5 mg BID PO Last administered on 01/05/20at 09:21; Start 01/04/20 at 21:00; Stop 01/05/20 at 14:56; Status DC Prochlorperazine Edisylate (Compazine) 10 mg PRN Q6HRS PRN IVP NAUSEA/VOMITING- 2ND CHOICE Last administered on 01/06/20at 01:46; Start 01/04/20 at 17:15 Diltiazem HCl 125 mg/Sodium Chloride 125 ml @ 5 mls/hr CONT PRN IV SEE I/O RECORD Last administered on 01/05/20at 06:24; Start 01/05/20 at 05:45 Metoprolol Tartrate (Lopressor Vial) 5 mg 1X ONCE IVP Last administered on 01/05/20at 15:16; Start 01/05/20 at 13:45; Stop 01/05/20 at 13:46; Status DC Amino Acids/ Glycerin/ Electrolytes 1,000 ml @ 80 mls/hr [id number] IV Last administered on 01/06/20at 23:17; Start 01/05/20 at 13:45 Levofloxacin/ Dextrose 100 ml @ 100 mls/hr Q24H IV Last administered on 01/06/20at 14:55; Start 01/05/20 at 14:00 Metronidazole 100 ml @ 100 mls/hr Q8HRS IV Last administered on 01/07/20at 05:33; Start 01/05/20 at 14:00 Heparin Sodium/ Dextrose 250 ml @ 0 mls/hr CONT PRN IV PER PROTOCOL Last ad ministered on 01/05/20at 16:46; Start 01/05/20 at 15:00 Heparin Sodium (Porcine) (Heparin Sodium) 2,100 unit PRN Q6HRS PRN IV FOR PTT LESS THAN 24; Start 01/05/20 at 15:00 Apixaban (Eliquis) 5 mg BID PO ; Start 01/06/20 at 21:00; Stop 01/06/20 at 12:46; Status DC Metoprolol Tartrate (Lopressor Vial) 5 mg Q6HRS IVP ; Start 01/05/20 at 17:00; Stop 01/05/20 at 17:01; Status DC Metoprolol Tartrate (Lopressor Vial) 5 mg Q6HRS IVP Last administered on 01/07/20at 05:33; Start 01/05/20 at 18:00 Morphine Sulfate (Morphine Sulfate) 2 mg PRN Q2HR PRN IV PAIN Last administered on 01/06/20at 20:29; Start 01/05/20 at 23:45 Pantoprazole Sodium (PROTONIX VIAL for IV PUSH) 40 mg DAILYAC IVP Last administered on 01/06/20at 12:25; Start 01/06/20 at 11:30 Heparin Sodium/ Dextrose 250 ml @ 0 mls/hr CONT PRN IV SEE I/O RECORD; Start 01/06/20 at 12:45; Status UNV Info (Anti-Coagulation Monitoring By Pharmacy) 1 each PRN DAILY PRN MC SEE COMMENTS Last administered on 01/06/20at 12:57; Start 01/06/20 at 13:00 Lactobacillus Rhamnosus (Culturelle) 1 cap BID PO Last administered on 01/06/20at 20:28; Start 01/06/20 at 21:00 Active Scripts Active Reported Klor-Con 10 (Potassium Chloride) 10 Meq Tablet.er 10 Meq PO DAILY Omeprazole 20 Mg Capsule.dr 20 Mg PO DAILY Fish Oil 1,000 Mg Capsule ([place]-3 Fatty Acids/Fish Oil) 1 Each Capsule 1 Each PO DAILY Vitamin D (Cholecalciferol (Vitamin D3)) 2,000 Unit Capsule 2,000 Unit PO BID Claritin (Loratadine) 10 Mg Tablet 10 Mg PO DAILY Triamterene-Hctz 37.5-25 Mg Cp (Triamterene/Hydrochlorothiazid) 1 Each Capsule 1 Cap PO DAILY Vitals/I & O Vital Sign - Last 24 Hours 01/06/20 01/06/20 01/06/20 01/06/20 10:11 12:26 15:00 17:22 Temp 97.7 97.3 97.7 97.3 Pulse 112 129 144 144 Resp 18 16 B/P (MAP) 124/89 (101) 124/89 127/85 (99) 127/85 Pulse Ox 93 95 O2 Delivery Room Air Room Air 01/06/20 01/06/20 01/06/20 01/06/20 19:12 19:35 20:29 20:59 Temp 97.2 97.2 Pulse 126 Resp 24 20 20 B/P (MAP) 124/80 (95) Pulse Ox 97 97 97 O2 Delivery Room Air Room Air Room Air Room Air 01/06/20 01/06/20 01/07/20 01/07/20 23:17 23:21 02:40 05:33 Temp 98.1 97.3 98.1 97.3 Pulse 126 134 133 133 Resp 22 20 B/P (MAP) 124/80 131/98 (109) 140/103 (115) 140/103 Pulse Ox 95 96 O2 Delivery Room Air Room Air 01/07/20 07:00 Temp 97.5 97.5 Pulse 138 Resp 16 B/P (MAP) 158/107 (124) Pulse Ox 94 O2 Delivery Room Air Intake and Output 01/06/20 01/06/20 01/07/20 15:00 23:00 07:00 Intake Total 0 ml 250 ml 200 ml Output Total 100 ml 625 ml 250 ml Balance -100 ml -375 ml -50 ml Hemodynamically unstable?: No Is patient in severe pain?: No Is NPO status required?: Yes TRINO NEGRON MD Jan 07, 2020 08:28
[2020-01-07] MEDS: CHOLECALCIFEROL (VITAMIN D3) 1,000 UNIT TABLET PO SCH ×2 (08:39→20:38)
[2020-01-07] MEDS: POTASSIUM CHLORIDE 10 MEQ TABLET.ER. PO SCH (08:39)
[2020-01-07] MEDS: LACTOBACILLUS RHAMNOSUS GG 1 CAPSULE. PO SCH ×2 (08:39→20:38)
[2020-01-07] MEDS: OMEGA-3 FATTY ACIDS/FISH OIL 1,000 MG CAPSULE. PO SCH (08:40)
[2020-01-07] MEDS: PANTOPRAZOLE IV PUSH 40 MG VIAL. IVP SCH (08:40)
[2020-01-07] MEDS: HEPARIN 25,000UTS/250ML PREMIX 250 ML IV PRN (09:48)
[2020-01-07 11:00] VITALS: BP 144/101
[2020-01-07] MEDS: POLYETHYLENE GLYCOL 3350 17 GM PACKET. PO SCH (12:01)
--- NOTE | 2020-01-07 12:30 | PDOC ---
G I PROGRESS NOTE Subjective Feels better. Less abdominal pain. Has stooled a couple times. Physical Exam Lungs clear. IRR Abdomen less tender. Some bowel sounds. Review of Relevant I have reviewed the following items alondra (where applicable) has been applied. Labs Laboratory Tests Test 01/05/20 23:15 01/06/20 04:45 01/06/20 09:30 01/06/20 19:15 Activated Partial Thromboplast Time > 150 SEC (24-38) 39 SEC (24-38) > 150 SEC (24-38) Lactic Acid Level 1.3 mmol/L (0.4-2.0) White Blood Count 15.5 x10^3/uL (4.0-11.0) Red Blood Count 7.65 x10^6/uL (3.50-5.40) Hemoglobin 16.7 g/dL (12.0-15.5) Hematocrit 54.2 % (36.0-47.0) Mean Corpuscular Volume 71 fL (79-100) Mean Corpuscular Hemoglobin 22 pg (25-35) Mean Corpuscular Hemoglobin Concent 31 g/dL (31-37) Red Cell Distribution Width 16.2 % (11.5-14.5) Platelet Count 285 x10^3/uL (140-400) Neutrophils (%) (Auto) 74 % (31-73) Lymphocytes (%) (Auto) 16 % (24-48) Monocytes (%) (Auto) 10 % (0-9) Eosinophils (%) (Auto) 0 % (0-3) Basophils (%) (Auto) 0 % (0-3) Neutrophils # (Auto) 11.5 x10^3/uL (1.8-7.7) Lymphocytes # (Auto) 2.5 x10^3/uL (1.0-4.8) Monocytes # (Auto) 1.5 x10^3/uL (0.0-1.1) Eosinophils # (Auto) 0.0 x10^3/uL (0.0-0.7) Basophils # (Auto) 0.1 x10^3/uL (0.0-0.2) Test 01/07/20 01:50 01/07/20 04:46 Activated Partial Thromboplast Time 38 SEC (24-38) 38 SEC (24-38) White Blood Count 13.2 x10^3/uL (4.0-11.0) Red Blood Count 7.17 x10^6/uL (3.50-5.40) Hemoglobin 15.9 g/dL (12.0-15.5) Hematocrit 50.6 % (36.0-47.0) Mean Corpuscular Volume 71 fL (79-100) Mean Corpuscular Hemoglobin 22 pg (25-35) Mean Corpuscular Hemoglobin Concent 31 g/dL (31-37) Red Cell Distribution Width 16.3 % (11.5-14.5) Platelet Count 266 x10^3/uL (140-400) Neutrophils (%) (Auto) 74 % (31-73) Lymphocytes (%) (Auto) 14 % (24-48) Monocytes (%) (Auto) 11 % (0-9) Eosinophils (%) (Auto) 1 % (0-3) Basophils (%) (Auto) 1 % (0-3) Neutrophils # (Auto) 9.8 x10^3/uL (1.8-7.7) Lymphocytes # (Auto) 1.9 x10^3/uL (1.0-4.8) Monocytes # (Auto) 1.4 x10^3/uL (0.0-1.1) Eosinophils # (Auto) 0.1 x10^3/uL (0.0-0.7) Basophils # (Auto) 0.1 x10^3/uL (0.0-0.2) Laboratory Tests Test 01/06/20 19:15 01/07/20 01:50 01/07/20 04:46 Activated Partial Thromboplast Time > 150 SEC (24-38) 38 SEC (24-38) 38 SEC (24-38) White Blood Count 13.2 x10^3/uL (4.0-11.0) Red Blood Count 7.17 x10^6/uL (3.50-5.40) Hemoglobin 15.9 g/dL (12.0-15.5) Hematocrit 50.6 % (36.0-47.0) Mean Corpuscular Volume 71 fL (79-100) Mean Corpuscular Hemoglobin 22 pg (25-35) Mean Corpuscular Hemoglobin Concent 31 g/dL (31-37) Red Cell Distribution Width 16.3 % (11.5-14.5) Platelet Count 266 x10^3/uL (140-400) Neutrophils (%) (Auto) 74 % (31-73) Lymphocytes (%) (Auto) 14 % (24-48) Monocytes (%) (Auto) 11 % (0-9) Eosinophils (%) (Auto) 1 % (0-3) Basophils (%) (Auto) 1 % (0-3) Neutrophils # (Auto) 9.8 x10^3/uL (1.8-7.7) Lymphocytes # (Auto) 1.9 x10^3/uL (1.0-4.8) Monocytes # (Auto) 1.4 x10^3/uL (0.0-1.1) Eosinophils # (Auto) 0.1 x10^3/uL (0.0-0.7) Basophils # (Auto) 0.1 x10^3/uL (0.0-0.2) Vitals/I & O Vital Sign - Last 24 Hours 01/06/20 01/06/20 01/06/20 01/06/20 15:00 17:22 19:12 19:35 Temp 97.3 97.2 97.3 97.2 Pulse 144 144 126 Resp 16 24 B/P (MAP) 127/85 (99) 127/85 124/80 (95) Pulse Ox 95 97 O2 Delivery Room Air Room Air Room Air 01/06/20 01/06/20 01/06/20 01/06/20 20:29 20:59 23:17 23:21 Temp 98.1 98.1 Pulse 126 134 Resp 20 20 22 B/P (MAP) 124/80 131/98 (109) Pulse Ox 97 97 95 O2 Delivery Room Air Room Air Room Air 01/07/20 01/07/20 01/07/20 01/07/20 02:40 05:33 07:00 08:20 Temp 97.3 97.5 97.3 97.5 Pulse 133 133 138 Resp 20 16 B/P (MAP) 140/103 (115) 140/103 158/107 (124) Pulse Ox 96 94 O2 Delivery Room Air Room Air Room Air 01/07/20 01/07/20 11:00 12:00 Temp 97.7 97.7 Pulse 148 154 Resp 16 B/P (MAP) 144/101 (115) 144/101 Pulse Ox 97 O2 Delivery Room Air Intake and Output 01/06/20 01/06/20 01/07/20 15:00 23:00 07:00 Intake Total 0 ml 250 ml 200 ml Output Total 100 ml 625 ml 250 ml Balance -100 ml -375 ml -50 ml Problem List Problems Medical Problems: (1) Atrial fibrillation with RVR Status: Acute (2) Nausea & vomiting Status: Acute Assessment Threatened bowel ischemia? Seems better. Plan of Care: Continue current Tx, Mgmt Plan of Care Note Observe on clears. Hemodynamically unstable?: No Is patient in severe pain?: No Is NPO status required?: Yes CAROLYN HINKLE MD Jan 07, 2020 12:30
--- NOTE | 2020-01-07 13:15 | PDOC ---
SURGICAL PROGRESS NOTE Subjective no new complaints tolerating clear liquids has had stool Vital Signs Vital Signs Date Time Temp Pulse Resp B/P (MAP) Pulse Ox O2 Delivery O2 Flow Rate FiO2 01/07/20 12:00 154 144/101 01/07/20 11:00 97.7 16 97 Room Air 97.7 I&O Intake and Output 01/07/20 07:00 Intake Total 450 ml Output Total 975 ml Balance -525 ml Intake Oral 350 ml IV Total 100 ml Output Urine Total 975 ml PATIENT HAS A PENA: No General: Alert, Oriented X3, No acute distress Abdomen: Soft, Other (minimally TTP in the RLQ) Labs Laboratory Tests Test 01/05/20 23:15 01/06/20 04:45 01/06/20 09:30 01/06/20 19:15 Activated Partial Thromboplast Time > 150 SEC (24-38) 39 SEC (24-38) > 150 SEC (24-38) Lactic Acid Level 1.3 mmol/L (0.4-2.0) White Blood Count 15.5 x10^3/uL (4.0-11.0) Red Blood Count 7.65 x10^6/uL (3.50-5.40) Hemoglobin 16.7 g/dL (12.0-15.5) Hematocrit 54.2 % (36.0-47.0) Mean Corpuscular Volume 71 fL (79-100) Mean Corpuscular Hemoglobin 22 pg (25-35) Mean Corpuscular Hemoglobin Concent 31 g/dL (31-37) Red Cell Distribution Width 16.2 % (11.5-14.5) Platelet Count 285 x10^3/uL (140-400) Neutrophils (%) (Auto) 74 % (31-73) Lymphocytes (%) (Auto) 16 % (24-48) Monocytes (%) (Auto) 10 % (0-9) Eosinophils (%) (Auto) 0 % (0-3) Basophils (%) (Auto) 0 % (0-3) Neutrophils # (Auto) 11.5 x10^3/uL (1.8-7.7) Lymphocytes # (Auto) 2.5 x10^3/uL (1.0-4.8) Monocytes # (Auto) 1.5 x10^3/uL (0.0-1.1) Eosinophils # (Auto) 0.0 x10^3/uL (0.0-0.7) Basophils # (Auto) 0.1 x10^3/uL (0.0-0.2) Test 01/07/20 01:50 01/07/20 04:46 Activated Partial Thromboplast Time 38 SEC (24-38) 38 SEC (24-38) White Blood Count 13.2 x10^3/uL (4.0-11.0) Red Blood Count 7.17 x10^6/uL (3.50-5.40) Hemoglobin 15.9 g/dL (12.0-15.5) Hematocrit 50.6 % (36.0-47.0) Mean Corpuscular Volume 71 fL (79-100) Mean Corpuscular Hemoglobin 22 pg (25-35) Mean Corpuscular Hemoglobin Concent 31 g/dL (31-37) Red Cell Distribution Width 16.3 % (11.5-14.5) Platelet Count 266 x10^3/uL (140-400) Neutrophils (%) (Auto) 74 % (31-73) Lymphocytes (%) (Auto) 14 % (24-48) Monocytes (%) (Auto) 11 % (0-9) Eosinophils (%) (Auto) 1 % (0-3) Basophils (%) (Auto) 1 % (0-3) Neutrophils # (Auto) 9.8 x10^3/uL (1.8-7.7) Lymphocytes # (Auto) 1.9 x10^3/uL (1.0-4.8) Monocytes # (Auto) 1.4 x10^3/uL (0.0-1.1) Eosinophils # (Auto) 0.1 x10^3/uL (0.0-0.7) Basophils # (Auto) 0.1 x10^3/uL (0.0-0.2) Laboratory Tests Test 01/06/20 19:15 01/07/20 01:50 01/07/20 04:46 Activated Partial Thromboplast Time > 150 SEC (24-38) 38 SEC (24-38) 38 SEC (24-38) White Blood Count 13.2 x10^3/uL (4.0-11.0) Red Blood Count 7.17 x10^6/uL (3.50-5.40) Hemoglobin 15.9 g/dL (12.0-15.5) Hematocrit 50.6 % (36.0-47.0) Mean Corpuscular Volume 71 fL (79-100) Mean Corpuscular Hemoglobin 22 pg (25-35) Mean Corpuscular Hemoglobin Concent 31 g/dL (31-37) Red Cell Distribution Width 16.3 % (11.5-14.5) Platelet Count 266 x10^3/uL (140-400) Neutrophils (%) (Auto) 74 % (31-73) Lymphocytes (%) (Auto) 14 % (24-48) Monocytes (%) (Auto) 11 % (0-9) Eosinophils (%) (Auto) 1 % (0-3) Basophils (%) (Auto) 1 % (0-3) Neutrophils # (Auto) 9.8 x10^3/uL (1.8-7.7) Lymphocytes # (Auto) 1.9 x10^3/uL (1.0-4.8) Monocytes # (Auto) 1.4 x10^3/uL (0.0-1.1) Eosinophils # (Auto) 0.1 x10^3/uL (0.0-0.7) Basophils # (Auto) 0.1 x10^3/uL (0.0-0.2) Problem List Problems Medical Problems: (1) Atrial fibrillation with RVR Status: Acute (2) Nausea & vomiting Status: Acute Assessment/Plan enteritis AF with RVR continue current Rx possible repeat CT in a few days d/w patient TAMERA SAUCEDO MD Jan 07, 2020 13:15
[2020-01-07 15:11] VITALS: BP 148/106
[2020-01-07] MEDS ORDERED: METOPROLOL TARTRATE 5 MG/5 ML VIAL. IVP PRN (16:30)
--- NOTE | 2020-01-07 16:36 | PDOC ---
CARDIOLOGY PROGRESS NOTE SUBJECTIVE: No new issues. Tolerating clears. OBJECTIVE: Vital Signs/I&O: Vital Signs Date Time Temp Pulse Resp B/P (MAP) Pulse Ox O2 Delivery O2 Flow Rate FiO2 01/07/20 15:11 97.8 118 18 148/106 (120) 94 Room Air 97.8 I & O 01/06/20 01/06/20 01/07/20 15:00 23:00 07:00 Intake Total 0 ml 250 ml 200 ml Output Total 100 ml 625 ml 250 ml Balance -100 ml -375 ml -50 ml Objective: a/o x 3. NAd Irregular No edema. Soft abd CURRENT MEDICATIONS: metop IV q 6 hours hep gtt DIAGNOSTIC TESTING: labs reviewed. tele reviewed Labs: Laboratory Tests 01/07/20 04:46 Laboratory Tests Test 01/06/20 19:15 01/07/20 01:50 01/07/20 04:46 Activated Partial Thromboplast Time > 150 SEC (24-38) *H 38 SEC (24-38) 38 SEC (24-38) White Blood Count 13.2 x10^3/uL (4.0-11.0) H Red Blood Count 7.17 x10^6/uL (3.50-5.40) H Hemoglobin 15.9 g/dL (12.0-15.5) H Hematocrit 50.6 % (36.0-47.0) H Mean Corpuscular Volume 71 fL (79-100) L Mean Corpuscular Hemoglobin 22 pg (25-35) L Mean Corpuscular Hemoglobin Concent 31 g/dL (31-37) Red Cell Distribution Width 16.3 % (11.5-14.5) H Platelet Count 266 x10^3/uL (140-400) Neutrophils (%) (Auto) 74 % (31-73) H Lymphocytes (%) (Auto) 14 % (24-48) L Monocytes (%) (Auto) 11 % (0-9) H Eosinophils (%) (Auto) 1 % (0-3) Basophils (%) (Auto) 1 % (0-3) Neutrophils # (Auto) 9.8 x10^3/uL (1.8-7.7) H Lymphocytes # (Auto) 1.9 x10^3/uL (1.0-4.8) Monocytes # (Auto) 1.4 x10^3/uL (0.0-1.1) H Eosinophils # (Auto) 0.1 x10^3/uL (0.0-0.7) Basophils # (Auto) 0.1 x10^3/uL (0.0-0.2) ASSESSMENT: 1. new onset afib with RVR. 2. Enteritis PLAN: 1. Start oral metoprolol 2. Await surgical recs, then will convert to oral anticoagulation Supportive care. Thanks. discussed with SIMONE WEBSTER MD Jan 07, 2020 16:36
[2020-01-07] MEDS: METOPROLOL TART IMMED RELEASE 25 MG TABLET. PO SCH ×2 (16:47→23:39)
[2020-01-07 19:20] VITALS: BP 135/100
[2020-01-07 23:40] VITALS: BP 151/82
[2020-01-08 03:15] VITALS: BP 129/82
[2020-01-08] MEDS: AMINO AC 3%/ELECTROLYTE/GLYCER 1,000 ML IV SCH ×2 (04:38→18:00)
[2020-01-08 05:20] LABS: BASO % 0 % (0-3); EOS # 0.2 x10^3/uL (0.0-0.7); EOS % 1 % (0-3); HEMATOCRIT 46.1 % (36.0-47.0); HEMOGLOBIN 14.4 g/dL (12.0-15.5); LYMPH # 2.4 x10^3/uL (1.0-4.8); LYMPH % 21 % (24-48); MEAN CORPUSCULAR HEMOGLOBIN 22 pg (25-35); MEAN CORPUSCULAR HGB CONC 31 g/dL (31-37); MEAN CORPUSCULAR VOLUME 70 fL (79-100); MONO # 1.4 x10^3/uL (0.0-1.1); MONO % 12 % (0-9); NEUT # 7.5 x10^3/uL (1.8-7.7); NEUT % 65 % (31-73); PLATELET COUNT 254 x10^3/uL (140-400); RED BLOOD COUNT 6.56 x10^6/uL (3.50-5.40); RED CELL DISTRIBUTION WIDTH 16.1 % (11.5-14.5); WHITE BLOOD COUNT 11.4 x10^3/uL (4.0-11.0)
[2020-01-08] MEDS: METOPROLOL TART IMMED RELEASE 25 MG TABLET. PO SCH (05:35)
[2020-01-08 05:37] LABS: ALBUMIN 1.9 g/dL (3.4-5.0); ALBUMIN/GLOBULIN RATIO 0.5 (1.0-1.7); CALCIUM 8.4 mg/dL (8.5-10.1); CREATININE 0.7 mg/dL (0.6-1.0); GFR 102.3; POTASSIUM 4.3 mmol/L (3.5-5.1); TOTAL BILIRUBIN 0.7 mg/dL (0.2-1.0); TOTAL PROTEIN 5.5 g/dL (6.4-8.2)
[2020-01-08 07:00] VITALS: BP 136/100
--- NOTE | 2020-01-08 07:51 | RAD ---
Complete abdomen ultrasound HISTORY: Right upper quadrant abdominal pain. Ascites. COMPARISON: CT abdomen January 05, 2020 FINDINGS: The pancreas and upper abdominal aorta and IVC are normal. The lower abdominal segments of the vessels are obscured by bowel gas shadowing. Normal liver echogenicity. No liver mass or nodularity evident. No gallstones or inflammatory change of the gallbladder. No biliary ductal dilation common bile duct diameter 3 mm. There is a small volume of perihepatic right upper quadrant ascites. Right renal length 11.8 cm. Left renal length 10.2 cm. Normal renal cortical thickness and echogenicity. No renal mass, calculus or hydronephrosis documented. Spleen length 6.8 cm with a very small volume of perisplenic free fluid at the left upper quadrant. IMPRESSION: 1. Small volume of free fluid at the upper quadrant surrounding the liver and spleen. 2. Otherwise negative exam. Electronically signed by: Jose Daniel Mcgregor MD (01/08/2020 7:48 AM) [id number]
[2020-01-08] MEDS: POLYETHYLENE GLYCOL 3350 17 GM PACKET. PO SCH (09:00)
[2020-01-08] MEDS: LACTOBACILLUS RHAMNOSUS GG 1 CAPSULE. PO SCH ×2 (09:58→20:29)
[2020-01-08] MEDS: CHOLECALCIFEROL (VITAMIN D3) 1,000 UNIT TABLET PO SCH ×2 (09:58→20:29)
[2020-01-08] MEDS: POTASSIUM CHLORIDE 10 MEQ TABLET.ER. PO SCH (09:58)
[2020-01-08] MEDS: OMEGA-3 FATTY ACIDS/FISH OIL 1,000 MG CAPSULE. PO SCH (09:58)
[2020-01-08] MEDS: PANTOPRAZOLE IV PUSH 40 MG VIAL. IVP SCH (09:58)
--- NOTE | 2020-01-08 10:16 | PDOC ---
PROGRESS NOTES Chief Complaint Chief Complaint Abdominal pain - initially thought to be possibly ischemic bowel, possibly simply enteritis Moderate ascites AFIB RVR - rate improved, on cardizem and heparin GTTs Shortness of breath - likely related to above HTN - controlled on CCB infusion Hx of breast CA with radical right mastectomy/chemo radiation 2014 History of Present Illness History of Present Illness Ms Saab is a 64yo F w/ PMHx HTN, chronic lymphedema to right arm, diverticulosis, GERD, breast ca s/p right radical mastectomy and chemo/radiation therapy 2014, ex-smoker who p/w abdominal pain and nausea, vomiting, found in afib with RVR. GI, general surgery and Cardiology consulted. 01/04: Pain persists. CT abdomen pelvis read as possible early ischemic small bowel in RLQ and moderate ascites that may be hemorrhagic in nature. 01/05: Discussed the case with Dr. Sears. He feels this is not ischemic bowel as her white count is coming down and she feels a little better. Surgery is on hold for now, instead we will just continue IV antibiotics 01/06: Overnight had a small BM. Still with abdominal pain, but it is improving. Still with nausea equivalent to when she had her chemo. Still in afib on heparin GTT. Had 5 more BM and now her abdominal pain has resolved. No CP or SOB. Still in afib on heparin GTT. Plan: ADAT per GI and surgery recs Will await restarting eliquis until diet is fully resumed. Vitals Vitals Vital Signs Date Time Temp Pulse Resp B/P (MAP) Pulse Ox O2 Delivery O2 Flow Rate FiO2 01/08/20 08:50 Room Air 01/08/20 07:00 98.0 96 18 136/100 (112) 96 98.0 Physical Exam General: Alert, Oriented X3, No acute distress Heart: Other (irregularly irregular) Abdomen: Soft, Other (minimally TTP in the RLQ) Extremities: No clubbing, No cyanosis Skin: No rashes, No breakdown Labs LABS Laboratory Tests Test 01/07/20 18:00 01/08/20 04:00 Activated Partial Thromboplast Time 32 SEC (24-38) 39 SEC (24-38) White Blood Count 11.4 x10^3/uL (4.0-11.0) Red Blood Count 6.56 x10^6/uL (3.50-5.40) Hemoglobin 14.4 g/dL (12.0-15.5) Hematocrit 46.1 % (36.0-47.0) Mean Corpuscular Volume 70 fL (79-100) Mean Corpuscular Hemoglobin 22 pg (25-35) Mean Corpuscular Hemoglobin Concent 31 g/dL (31-37) Red Cell Distribution Width 16.1 % (11.5-14.5) Platelet Count 254 x10^3/uL (140-400) Neutrophils (%) (Auto) 65 % (31-73) Lymphocytes (%) (Auto) 21 % (24-48) Monocytes (%) (Auto) 12 % (0-9) Eosinophils (%) (Auto) 1 % (0-3) Basophils (%) (Auto) 0 % (0-3) Neutrophils # (Auto) 7.5 x10^3/uL (1.8-7.7) Lymphocytes # (Auto) 2.4 x10^3/uL (1.0-4.8) Monocytes # (Auto) 1.4 x10^3/uL (0.0-1.1) Eosinophils # (Auto) 0.2 x10^3/uL (0.0-0.7) Basophils # (Auto) 0.0 x10^3/uL (0.0-0.2) Sodium Level 133 mmol/L (136-145) Potassium Level 4.3 mmol/L (3.5-5.1) Chloride Level 99 mmol/L (98-107) Carbon Dioxide Level 23 mmol/L (21-32) Anion Gap 11 (6-14) Blood Urea Nitrogen 25 mg/dL (7-20) Creatinine 0.7 mg/dL (0.6-1.0) Estimated GFR (Cockcroft-Gault) 102.3 BUN/Creatinine Ratio 36 (6-20) Glucose Level 102 mg/dL (70-99) Calcium Level 8.4 mg/dL (8.5-10.1) Total Bilirubin 0.7 mg/dL (0.2-1.0) Aspartate Amino Transf (AST/SGOT) 18 U/L (15-37) Alanine Aminotransferase (ALT/SGPT) 14 U/L (14-59) Alkaline Phosphatase 61 U/L (46-116) Total Protein 5.5 g/dL (6.4-8.2) Albumin 1.9 g/dL (3.4-5.0) Albumin/Globulin Ratio 0.5 (1.0-1.7) Assessment and Plan Assessmemt and Plan Problems Medical Problems: (1) Atrial fibrillation with RVR Status: Acute (2) Nausea & vomiting Status: Acute Comment Review of Relevant I have reviewed the following items alondra (where applicable) has been applied. Labs Laboratory Tests Test 01/06/20 19:15 01/07/20 01:50 01/07/20 04:46 01/07/20 18:00 Activated Partial Thromboplast Time > 150 SEC (24-38) 38 SEC (24-38) 38 SEC (24-38) 32 SEC (24-38) White Blood Count 13.2 x10^3/uL (4.0-11.0) Red Blood Count 7.17 x10^6/uL (3.50-5.40) Hemoglobin 15.9 g/dL (12.0-15.5) Hematocrit 50.6 % (36.0-47.0) Mean Corpuscular Volume 71 fL (79-100) Mean Corpuscular Hemoglobin 22 pg (25-35) Mean Corpuscular Hemoglobin Concent 31 g/dL (31-37) Red Cell Distribution Width 16.3 % (11.5-14.5) Platelet Count 266 x10^3/uL (140-400) Neutrophils (%) (Auto) 74 % (31-73) Lymphocytes (%) (Auto) 14 % (24-48) Monocytes (%) (Auto) 11 % (0-9) Eosinophils (%) (Auto) 1 % (0-3) Basophils (%) (Auto) 1 % (0-3) Neutrophils # (Auto) 9.8 x10^3/uL (1.8-7.7) Lymphocytes # (Auto) 1.9 x10^3/uL (1.0-4.8) Monocytes # (Auto) 1.4 x10^3/uL (0.0-1.1) Eosinophils # (Auto) 0.1 x10^3/uL (0.0-0.7) Basophils # (Auto) 0.1 x10^3/uL (0.0-0.2) Test 01/08/20 04:00 White Blood Count 11.4 x10^3/uL (4.0-11.0) Red Blood Count 6.56 x10^6/uL (3.50-5.40) Hemoglobin 14.4 g/dL (12.0-15.5) Hematocrit 46.1 % (36.0-47.0) Mean Corpuscular Volume 70 fL (79-100) Mean Corpuscular Hemoglobin 22 pg (25-35) Mean Corpuscular Hemoglobin Concent 31 g/dL (31-37) Red Cell Distribution Width 16.1 % (11.5-14.5) Platelet Count 254 x10^3/uL (140-400) Neutrophils (%) (Auto) 65 % (31-73) Lymphocytes (%) (Auto) 21 % (24-48) Monocytes (%) (Auto) 12 % (0-9) Eosinophils (%) (Auto) 1 % (0-3) Basophils (%) (Auto) 0 % (0-3) Neutrophils # (Auto) 7.5 x10^3/uL (1.8-7.7) Lymphocytes # (Auto) 2.4 x10^3/uL (1.0-4.8) Monocytes # (Auto) 1.4 x10^3/uL (0.0-1.1) Eosinophils # (Auto) 0.2 x10^3/uL (0.0-0.7) Basophils # (Auto) 0.0 x10^3/uL (0.0-0.2) Activated Partial Thromboplast Time 39 SEC (24-38) Sodium Level 133 mmol/L (136-145) Potassium Level 4.3 mmol/L (3.5-5.1) Chloride Level 99 mmol/L (98-107) Carbon Dioxide Level 23 mmol/L (21-32) Anion Gap 11 (6-14) Blood Urea Nitrogen 25 mg/dL (7-20) Creatinine 0.7 mg/dL (0.6-1.0) Estimated GFR (Cockcroft-Gault) 102.3 BUN/Creatinine Ratio 36 (6-20) Glucose Level 102 mg/dL (70-99) Calcium Level 8.4 mg/dL (8.5-10.1) Total Bilirubin 0.7 mg/dL (0.2-1.0) Aspartate Amino Transf (AST/SGOT) 18 U/L (15-37) Alanine Aminotransferase (ALT/SGPT) 14 U/L (14-59) Alkaline Phosphatase 61 U/L (46-116) Total Protein 5.5 g/dL (6.4-8.2) Albumin 1.9 g/dL (3.4-5.0) Albumin/Globulin Ratio 0.5 (1.0-1.7) Laboratory Tests Test 01/07/20 18:00 01/08/20 04:00 Activated Partial Thromboplast Time 32 SEC (24-38) 39 SEC (24-38) White Blood Count 11.4 x10^3/uL (4.0-11.0) Red Blood Count 6.56 x10^6/uL (3.50-5.40) Hemoglobin 14.4 g/dL (12.0-15.5) Hematocrit 46.1 % (36.0-47.0) Mean Corpuscular Volume 70 fL (79-100) Mean Corpuscular Hemoglobin 22 pg (25-35) Mean Corpuscular Hemoglobin Concent 31 g/dL (31-37) Red Cell Distribution Width 16.1 % (11.5-14.5) Platelet Count 254 x10^3/uL (140-400) Neutrophils (%) (Auto) 65 % (31-73) Lymphocytes (%) (Auto) 21 % (24-48) Monocytes (%) (Auto) 12 % (0-9) Eosinophils (%) (Auto) 1 % (0-3) Basophils (%) (Auto) 0 % (0-3) Neutrophils # (Auto) 7.5 x10^3/uL (1.8-7.7) Lymphocytes # (Auto) 2.4 x10^3/uL (1.0-4.8) Monocytes # (Auto) 1.4 x10^3/uL (0.0-1.1) Eosinophils # (Auto) 0.2 x10^3/uL (0.0-0.7) Basophils # (Auto) 0.0 x10^3/uL (0.0-0.2) Sodium Level 133 mmol/L (136-145) Potassium Level 4.3 mmol/L (3.5-5.1) Chloride Level 99 mmol/L (98-107) Carbon Dioxide Level 23 mmol/L (21-32) Anion Gap 11 (6-14) Blood Urea Nitrogen 25 mg/dL (7-20) Creatinine 0.7 mg/dL (0.6-1.0) Estimated GFR (Cockcroft-Gault) 102.3 BUN/Creatinine Ratio 36 (6-20) Glucose Level 102 mg/dL (70-99) Calcium Level 8.4 mg/dL (8.5-10.1) Total Bilirubin 0.7 mg/dL (0.2-1.0) Aspartate Amino Transf (AST/SGOT) 18 U/L (15-37) Alanine Aminotransferase (ALT/SGPT) 14 U/L (14-59) Alkaline Phosphatase 61 U/L (46-116) Total Protein 5.5 g/dL (6.4-8.2) Albumin 1.9 g/dL (3.4-5.0) Albumin/Globulin Ratio 0.5 (1.0-1.7) Medications Current Medications Sodium Chloride 1,000 ml @ 1,000 mls/hr 1X ONCE IV Last administered on 01/03/20at 21:52; Start 01/03/20 at 21:30; Stop 01/03/20 at 22:29; Status DC Ondansetron HCl (Zofran) 4 mg 1X ONCE IVP Last administered on 01/03/20at 21:53; Start 01/03/20 at 22:00; Stop 01/03/20 at 22:01; Status DC Multi-Ingredient Mouthwash/Gargle (Gi Cocktail) 20 ml 1X ONCE SWSW Last administered on 01/03/20at 21:52; Start 01/03/20 at 22:00; Stop 01/03/20 at 22:01; Status DC Diltiazem HCl (Cardizem Iv Push) 10 mg 1X ONCE IVP Last administered on 01/03/20at 21:54; Start 01/03/20 at 22:00; Stop 01/03/20 at 22:01; Status DC Morphine Sulfate (Morphine Sulfate) 2 mg 1X ONCE IV Last administered on 01/03/20at 22:21; Start 01/03/20 at 22:30; Stop 01/03/20 at 22:31; Status DC Diltiazem HCl 125 mg/Sodium Chloride 125 ml @ 5 mls/hr CONT PRN IV SEE I/O RECORD Last administered on 01/03/20at 22:34; Start 01/03/20 at 22:30; Stop 01/04/20 at 10:17; Status DC Ondansetron HCl (Zofran) 4 mg PRN Q8HRS PRN IV NAUSEA/VOMITING 1ST CHOICE Last administered on 01/04/20at 11:45; Start 01/03/20 at 22:30; Stop 01/04/20 at 16:53; Status DC Sodium Chloride 1,000 ml @ 75 mls/hr [id number] IV Last administered on 01/03/20at 23:51; Start 01/03/20 at 23:00; Stop 01/04/20 at 22:59; Status DC Fish Oil (Fish Oil) 1,000 mg DAILY PO Last administered on 01/08/20at 09:58; Start 01/04/20 at 10:00 Potassium Chloride (Klor-Con) 10 meq DAILY PO Last administered on 01/08/20at 09:58; Start 01/05/20 at 09:00 Vitamin D (Vitamin D3) 2,000 unit BID PO Last administered on 01/08/20at 09:58; Start 01/05/20 at 10:00 Cetirizine HCl (ZyrTEC) 10 mg DAILY PO ; Start 01/04/20 at 10:00; Stop 01/05/20 at 13:07; Status DC Pantoprazole Sodium (Protonix) 40 mg DAILYAC PO Last administered on 01/05/20at 09:20; Start 01/04/20 at 11:30; Stop 01/06/20 at 10:23; Status DC Triamterene/HCTZ (Maxzide 37.5/ 25mg) 1 tab DAILY PO ; Start 01/04/20 at 10:00; Stop 01/04/20 at 10:17; Status DC Magnesium Sulfate 50 ml @ 25 mls/hr 1X ONCE IV Last administered on 01/04/20at 11:05; Start 01/04/20 at 10:15; Stop 01/04/20 at 12:14; Status DC Metoprolol Tartrate (Lopressor) 25 mg BID PO Last administered on 01/05/20at 09:21; Start 01/04/20 at 21:00; Stop 01/05/20 at 16:51; Status DC Metoprolol Tartrate (Lopressor) 25 mg 1X ONCE PO Last administered on 01/04/20at 10:37; Start 01/04/20 at 10:15; Stop 01/04/20 at 10:32; Status DC Aspirin (Ecotrin) 325 mg 1X ONCE PO Last administered on 01/04/20at 10:37; Start 01/04/20 at 10:15; Stop 01/04/20 at 10:32; Status DC Metoprolol Tartrate (Lopressor Vial) 5 mg 1X ONCE IVP Last administered on 01/04/20at 11:44; Start 01/04/20 at 12:00; Stop 01/04/20 at 12:01; Status DC Non-Formulary Medication 1 ea DAILY PO Last administered on 01/08/20at 09:58; Start 01/04/20 at 11:00 Digoxin (Lanoxin) 500 mcg 1X ONCE IV Last administered on 01/04/20at 15:23; Start 01/04/20 at 15:15; Stop 01/04/20 at 15:16; Status DC Ondansetron HCl (Zofran) 4 mg PRN Q4HRS PRN IV NAUSEA/VOMITING 1ST CHOICE Last administered on 01/07/20at 12:00; Start 01/04/20 at 17:00 Prochlorperazine Edisylate (Compazine) 10 mg PRN Q6HRS PRN IM NAUSEA/VOMITING- 2ND CHOICE; Start 01/04/20 at 17:00; Stop 01/04/20 at 17:08; Status DC Apixaban (Eliquis) 5 mg BID PO Last administered on 01/05/20at 09:21; Start 01/04/20 at 21:00; Stop 01/05/20 at 14:56; Status DC Prochlorperazine Edisylate (Compazine) 10 mg PRN Q6HRS PRN IVP NAUSEA/VOMITING- 2ND CHOICE Last administered on 01/06/20at 01:46; Start 01/04/20 at 17:15 Diltiazem HCl 125 mg/Sodium Chloride 125 ml @ 5 mls/hr CONT PRN IV SEE I/O RECORD Last administered on 01/05/20at 06:24; Start 01/05/20 at 05:45 Metoprolol Tartrate (Lopressor Vial) 5 mg 1X ONCE IVP Last administered on 01/05/20at 15:16; Start 01/05/20 at 13:45; Stop 01/05/20 at 13:46; Status DC Amino Acids/ Glycerin/ Electrolytes 1,000 ml @ 80 mls/hr [id number] IV Last administered on 01/08/20at 04:38; Start 01/05/20 at 13:45 Levofloxacin/ Dextrose 100 ml @ 100 mls/hr Q24H IV Last administered on 01/07/20at 15:10; Start 01/05/20 at 14:00 Metronidazole 100 ml @ 100 mls/hr Q8HRS IV Last administered on 01/07/20at 2 1:42; Start 01/05/20 at 14:00 Heparin Sodium/ Dextrose 250 ml @ 0 mls/hr CONT PRN IV PER PROTOCOL Last administered on 01/07/20at 09:48; Start 01/05/20 at 15:00 Heparin Sodium (Porcine) (Heparin Sodium) 2,100 unit PRN Q6HRS PRN IV FOR PTT LESS THAN 24; Start 01/05/20 at 15:00 Apixaban (Eliquis) 5 mg BID PO ; Start 01/06/20 at 21:00; Stop 01/06/20 at 12:46; Status DC Metoprolol Tartrate (Lopressor Vial) 5 mg Q6HRS IVP ; Start 01/05/20 at 17:00; Stop 01/05/20 at 17:01; Status DC Metoprolol Tartrate (Lopressor Vial) 5 mg Q6HRS IVP Last administered on 01/07/20at 12:00; Start 01/05/20 at 18:00; Stop 01/07/20 at 16:30; Status DC Morphine Sulfate (Morphine Sulfate) 2 mg PRN Q2HR PRN IV PAIN Last administered on 01/06/20at 20:29; Start 01/05/20 at 23:45 Pantoprazole Sodium (PROTONIX VIAL for IV PUSH) 40 mg DAILYAC IVP Last administered on 01/08/20at 09:58; Start 01/06/20 at 11:30 Heparin Sodium/ Dextrose 250 ml @ 0 mls/hr CONT PRN IV SEE I/O RECORD; Start 01/06/20 at 12:45; Status UNV Info (Anti-Coagulation Monitoring By Pharmacy) 1 each PRN DAILY PRN MC SEE COMMENTS Last administered on 01/06/20at 12:57; Start 01/06/20 at 13:00 Lactobacillus Rhamnosus (Culturelle) 1 cap BID PO Last administered on 01/08/20at 09:58; Start 01/06/20 at 21:00 Polyethylene Glycol (miraLAX PACKET) 17 gm DAILY PO Last administered on 01/07/20at 12:01; Start 01/07/20 at 09:00 Metoprolol Tartrate (Lopressor) 25 mg Q6HRS PO Last administered on 01/08/20at 05:35; Start 01/07/20 at 17:00 Metoprolol Tartrate (Lopressor Vial) 5 mg PRN Q4HRS PRN IVP TACHYCARDIA Last administered on 01/07/20at 21:41; Start 01/07/20 at 16:30 Active Scripts Active Reported Klor-Con 10 (Potassium Chloride) 10 Meq Tablet.er 10 Meq PO DAILY Omeprazole 20 Mg Capsule.dr 20 Mg PO DAILY Fish Oil 1,000 Mg Capsule ([place]-3 Fatty Acids/Fish Oil) 1 Each Capsule 1 Each PO DAILY Vitamin D (Cholecalciferol (Vitamin D3)) 2,000 Unit Capsule 2,000 Unit PO BID Claritin (Loratadine) 10 Mg Tablet 10 Mg PO DAILY Triamterene-Hctz 37.5-25 Mg Cp (Triamterene/Hydrochlorothiazid) 1 Each Capsule 1 Cap PO DAILY Vitals/I & O Vital Sign - Last 24 Hours 01/07/20 01/07/20 01/07/20 01/07/20 11:00 12:00 15:11 16:47 Temp 97.7 97.8 97.7 97.8 Pulse 148 154 118 118 Resp 16 18 B/P (MAP) 144/101 (115) 144/101 148/106 (120) 148/106 Pulse Ox 97 94 O2 Delivery Room Air Room Air 01/07/20 01/07/20 01/07/20 01/07/20 19:20 19:39 21:41 23:39 Temp 98.4 98.4 Pulse 125 125 130 Resp 20 B/P (MAP) 135/100 (112) 135/100 151/82 Pulse Ox 97 O2 Delivery Room Air Room Air 01/07/20 01/08/20 01/08/20 01/08/20 23:40 03:15 05:35 07:00 Temp 98.3 97.5 98.0 98.3 97.5 98.0 Pulse 119 116 115 96 Resp 18 B/P (MAP) 151/82 (105) 129/82 (98) 129/82 136/100 (112) Pulse Ox 97 94 96 O2 Delivery Room Air Room Air Room Air 01/08/20 08:50 O2 Delivery Room Air Intake and Output 01/07/20 01/07/20 01/08/20 15:00 23:00 07:00 Intake Total 420 ml 400 ml 960 ml Output Total 200 ml 150 ml 200 ml Balance 220 ml 250 ml 760 ml Hemodynamically unstable?: No Is patient in severe pain?: No Is NPO status required?: Yes TRINO NEGRON MD Jan 08, 2020 10:16
[2020-01-08 11:00] VITALS: BP 143/96
[2020-01-08] MEDS: METOPROLOL TART IMMED RELEASE 50 MG TABLET. PO SCH ×2 (11:57→17:59)
--- NOTE | 2020-01-08 12:44 | PDOC ---
G I PROGRESS NOTE Subjective Continues to improve belly-mack. No real pain. Tolerating clears. Has stooled, but not diarrhea. Physical Exam Lungs clear. IRR/afib Abdomen soft, not particularly tender. Review of Relevant I have reviewed the following items alondra (where applicable) has been applied. Labs Laboratory Tests Test 01/06/20 19:15 01/07/20 01:50 01/07/20 04:46 01/07/20 18:00 Activated Partial Thromboplast Time > 150 SEC (24-38) 38 SEC (24-38) 38 SEC (24-38) 32 SEC (24-38) White Blood Count 13.2 x10^3/uL (4.0-11.0) Red Blood Count 7.17 x10^6/uL (3.50-5.40) Hemoglobin 15.9 g/dL (12.0-15.5) Hematocrit 50.6 % (36.0-47.0) Mean Corpuscular Volume 71 fL (79-100) Mean Corpuscular Hemoglobin 22 pg (25-35) Mean Corpuscular Hemoglobin Concent 31 g/dL (31-37) Red Cell Distribution Width 16.3 % (11.5-14.5) Platelet Count 266 x10^3/uL (140-400) Neutrophils (%) (Auto) 74 % (31-73) Lymphocytes (%) (Auto) 14 % (24-48) Monocytes (%) (Auto) 11 % (0-9) Eosinophils (%) (Auto) 1 % (0-3) Basophils (%) (Auto) 1 % (0-3) Neutrophils # (Auto) 9.8 x10^3/uL (1.8-7.7) Lymphocytes # (Auto) 1.9 x10^3/uL (1.0-4.8) Monocytes # (Auto) 1.4 x10^3/uL (0.0-1.1) Eosinophils # (Auto) 0.1 x10^3/uL (0.0-0.7) Basophils # (Auto) 0.1 x10^3/uL (0.0-0.2) Test 01/08/20 04:00 White Blood Count 11.4 x10^3/uL (4.0-11.0) Red Blood Count 6.56 x10^6/uL (3.50-5.40) Hemoglobin 14.4 g/dL (12.0-15.5) Hematocrit 46.1 % (36.0-47.0) Mean Corpuscular Volume 70 fL (79-100) Mean Corpuscular Hemoglobin 22 pg (25-35) Mean Corpuscular Hemoglobin Concent 31 g/dL (31-37) Red Cell Distribution Width 16.1 % (11.5-14.5) Platelet Count 254 x10^3/uL (140-400) Neutrophils (%) (Auto) 65 % (31-73) Lymphocytes (%) (Auto) 21 % (24-48) Monocytes (%) (Auto) 12 % (0-9) Eosinophils (%) (Auto) 1 % (0-3) Basophils (%) (Auto) 0 % (0-3) Neutrophils # (Auto) 7.5 x10^3/uL (1.8-7.7) Lymphocytes # (Auto) 2.4 x10^3/uL (1.0-4.8) Monocytes # (Auto) 1.4 x10^3/uL (0.0-1.1) Eosinophils # (Auto) 0.2 x10^3/uL (0.0-0.7) Basophils # (Auto) 0.0 x10^3/uL (0.0-0.2) Activated Partial Thromboplast Time 39 SEC (24-38) Sodium Level 133 mmol/L (136-145) Potassium Level 4.3 mmol/L (3.5-5.1) Chloride Level 99 mmol/L (98-107) Carbon Dioxide Level 23 mmol/L (21-32) Anion Gap 11 (6-14) Blood Urea Nitrogen 25 mg/dL (7-20) Creatinine 0.7 mg/dL (0.6-1.0) Estimated GFR (Cockcroft-Gault) 102.3 BUN/Creatinine Ratio 36 (6-20) Glucose Level 102 mg/dL (70-99) Calcium Level 8.4 mg/dL (8.5-10.1) Total Bilirubin 0.7 mg/dL (0.2-1.0) Aspartate Amino Transf (AST/SGOT) 18 U/L (15-37) Alanine Aminotransferase (ALT/SGPT) 14 U/L (14-59) Alkaline Phosphatase 61 U/L (46-116) Total Protein 5.5 g/dL (6.4-8.2) Albumin 1.9 g/dL (3.4-5.0) Albumin/Globulin Ratio 0.5 (1.0-1.7) Laboratory Tests Test 01/07/20 18:00 01/08/20 04:00 Activated Partial Thromboplast Time 32 SEC (24-38) 39 SEC (24-38) White Blood Count 11.4 x10^3/uL (4.0-11.0) Red Blood Count 6.56 x10^6/uL (3.50-5.40) Hemoglobin 14.4 g/dL (12.0-15.5) Hematocrit 46.1 % (36.0-47.0) Mean Corpuscular Volume 70 fL (79-100) Mean Corpuscular Hemoglobin 22 pg (25-35) Mean Corpuscular Hemoglobin Concent 31 g/dL (31-37) Red Cell Distribution Width 16.1 % (11.5-14.5) Platelet Count 254 x10^3/uL (140-400) Neutrophils (%) (Auto) 65 % (31-73) Lymphocytes (%) (Auto) 21 % (24-48) Monocytes (%) (Auto) 12 % (0-9) Eosinophils (%) (Auto) 1 % (0-3) Basophils (%) (Auto) 0 % (0-3) Neutrophils # (Auto) 7.5 x10^3/uL (1.8-7.7) Lymphocytes # (Auto) 2.4 x10^3/uL (1.0-4.8) Monocytes # (Auto) 1.4 x10^3/uL (0.0-1.1) Eosinophils # (Auto) 0.2 x10^3/uL (0.0-0.7) Basophils # (Auto) 0.0 x10^3/uL (0.0-0.2) Sodium Level 133 mmol/L (136-145) Potassium Level 4.3 mmol/L (3.5-5.1) Chloride Level 99 mmol/L (98-107) Carbon Dioxide Level 23 mmol/L (21-32) Anion Gap 11 (6-14) Blood Urea Nitrogen 25 mg/dL (7-20) Creatinine 0.7 mg/dL (0.6-1.0) Estimated GFR (Cockcroft-Gault) 102.3 BUN/Creatinine Ratio 36 (6-20) Glucose Level 102 mg/dL (70-99) Calcium Level 8.4 mg/dL (8.5-10.1) Total Bilirubin 0.7 mg/dL (0.2-1.0) Aspartate Amino Transf (AST/SGOT) 18 U/L (15-37) Alanine Aminotransferase (ALT/SGPT) 14 U/L (14-59) Alkaline Phosphatase 61 U/L (46-116) Total Protein 5.5 g/dL (6.4-8.2) Albumin 1.9 g/dL (3.4-5.0) Albumin/Globulin Ratio 0.5 (1.0-1.7) Vitals/I & O Vital Sign - Last 24 Hours 01/07/20 01/07/20 01/07/20 01/07/20 15:11 16:47 19:20 19:39 Temp 97.8 98.4 97.8 98.4 Pulse 118 118 125 Resp 18 20 B/P (MAP) 148/106 (120) 148/106 135/100 (112) Pulse Ox 94 97 O2 Delivery Room Air Room Air Room Air 01/07/20 01/07/20 01/07/20 01/08/20 21:41 23:39 23:40 03:15 Temp 98.3 97.5 98.3 97.5 Pulse 125 130 119 116 Resp 20 20 B/P (MAP) 135/100 151/82 151/82 (105) 129/82 (98) Pulse Ox 97 94 O2 Delivery Room Air Room Air 01/08/20 01/08/20 01/08/20 01/08/20 05:35 07:00 08:50 11:00 Temp 98.0 97.7 98.0 97.7 Pulse 115 96 80 Resp 18 18 B/P (MAP) 129/82 136/100 (112) 143/96 (112) Pulse Ox 96 99 O2 Delivery Room Air Room Air Room Air 01/08/20 11:57 Pulse 128 B/P (MAP) 143/96 Intake and Output 01/07/20 01/07/20 01/08/20 15:00 23:00 07:00 Intake Total 420 ml 400 ml 960 ml Output Total 200 ml 150 ml 200 ml Balance 220 ml 250 ml 760 ml Problem List Problems Medical Problems: (1) Atrial fibrillation with RVR Status: Acute (2) Nausea & vomiting Status: Acute Assessment Suspect threatened gut ischemia, possibly embolic from afib. Improving on heparin gtt. FALGUNI Plan of Care Note CPM. Increase diet? Defer to you. Hemodynamically unstable?: No Is patient in severe pain?: No Is NPO status required?: No CAROLYN HINKLE MD Jan 08, 2020 12:44
--- NOTE | 2020-01-08 13:07 | PDOC ---
SURGICAL PROGRESS NOTE Subjective up to chair continues to improve passing gas and some small stools taking all of her clear liquid tray Vital Signs Vital Signs Date Time Temp Pulse Resp B/P (MAP) Pulse Ox O2 Delivery O2 Flow Rate FiO2 01/08/20 11:57 128 143/96 01/08/20 11:00 97.7 18 99 Room Air 97.7 I&O Intake and Output 01/08/20 07:00 Intake Total 1780 ml Output Total 550 ml Balance 1230 ml Intake Oral 820 ml IV Total 960 ml Output Urine Total 550 ml # Bowel Movements 2 PATIENT HAS A PENA: No General: Alert, Cooperative, No acute distress Abdomen: Soft Labs Laboratory Tests Test 01/06/20 19:15 01/07/20 01:50 01/07/20 04:46 01/07/20 18:00 Activated Partial Thromboplast Time > 150 SEC (24-38) 38 SEC (24-38) 38 SEC (24-38) 32 SEC (24-38) White Blood Count 13.2 x10^3/uL (4.0-11.0) Red Blood Count 7.17 x10^6/uL (3.50-5.40) Hemoglobin 15.9 g/dL (12.0-15.5) Hematocrit 50.6 % (36.0-47.0) Mean Corpuscular Volume 71 fL (79-100) Mean Corpuscular Hemoglobin 22 pg (25-35) Mean Corpuscular Hemoglobin Concent 31 g/dL (31-37) Red Cell Distribution Width 16.3 % (11.5-14.5) Platelet Count 266 x10^3/uL (140-400) Neutrophils (%) (Auto) 74 % (31-73) Lymphocytes (%) (Auto) 14 % (24-48) Monocytes (%) (Auto) 11 % (0-9) Eosinophils (%) (Auto) 1 % (0-3) Basophils (%) (Auto) 1 % (0-3) Neutrophils # (Auto) 9.8 x10^3/uL (1.8-7.7) Lymphocytes # (Auto) 1.9 x10^3/uL (1.0-4.8) Monocytes # (Auto) 1.4 x10^3/uL (0.0-1.1) Eosinophils # (Auto) 0.1 x10^3/uL (0.0-0.7) Basophils # (Auto) 0.1 x10^3/uL (0.0-0.2) Test 01/08/20 04:00 White Blood Count 11.4 x10^3/uL (4.0-11.0) Red Blood Count 6.56 x10^6/uL (3.50-5.40) Hemoglobin 14.4 g/dL (12.0-15.5) Hematocrit 46.1 % (36.0-47.0) Mean Corpuscular Volume 70 fL (79-100) Mean Corpuscular Hemoglobin 22 pg (25-35) Mean Corpuscular Hemoglobin Concent 31 g/dL (31-37) Red Cell Distribution Width 16.1 % (11.5-14.5) Platelet Count 254 x10^3/uL (140-400) Neutrophils (%) (Auto) 65 % (31-73) Lymphocytes (%) (Auto) 21 % (24-48) Monocytes (%) (Auto) 12 % (0-9) Eosinophils (%) (Auto) 1 % (0-3) Basophils (%) (Auto) 0 % (0-3) Neutrophils # (Auto) 7.5 x10^3/uL (1.8-7.7) Lymphocytes # (Auto) 2.4 x10^3/uL (1.0-4.8) Monocytes # (Auto) 1.4 x10^3/uL (0.0-1.1) Eosinophils # (Auto) 0.2 x10^3/uL (0.0-0.7) Basophils # (Auto) 0.0 x10^3/uL (0.0-0.2) Activated Partial Thromboplast Time 39 SEC (24-38) Sodium Level 133 mmol/L (136-145) Potassium Level 4.3 mmol/L (3.5-5.1) Chloride Level 99 mmol/L (98-107) Carbon Dioxide Level 23 mmol/L (21-32) Anion Gap 11 (6-14) Blood Urea Nitrogen 25 mg/dL (7-20) Creatinine 0.7 mg/dL (0.6-1.0) Estimated GFR (Cockcroft-Gault) 102.3 BUN/Creatinine Ratio 36 (6-20) Glucose Level 102 mg/dL (70-99) Calcium Level 8.4 mg/dL (8.5-10.1) Total Bilirubin 0.7 mg/dL (0.2-1.0) Aspartate Amino Transf (AST/SGOT) 18 U/L (15-37) Alanine Aminotransferase (ALT/SGPT) 14 U/L (14-59) Alkaline Phosphatase 61 U/L (46-116) Total Protein 5.5 g/dL (6.4-8.2) Albumin 1.9 g/dL (3.4-5.0) Albumin/Globulin Ratio 0.5 (1.0-1.7) Laboratory Tests Test 01/07/20 18:00 01/08/20 04:00 Activated Partial Thromboplast Time 32 SEC (24-38) 39 SEC (24-38) White Blood Count 11.4 x10^3/uL (4.0-11.0) Red Blood Count 6.56 x10^6/uL (3.50-5.40) Hemoglobin 14.4 g/dL (12.0-15.5) Hematocrit 46.1 % (36.0-47.0) Mean Corpuscular Volume 70 fL (79-100) Mean Corpuscular Hemoglobin 22 pg (25-35) Mean Corpuscular Hemoglobin Concent 31 g/dL (31-37) Red Cell Distribution Width 16.1 % (11.5-14.5) Platelet Count 254 x10^3/uL (140-400) Neutrophils (%) (Auto) 65 % (31-73) Lymphocytes (%) (Auto) 21 % (24-48) Monocytes (%) (Auto) 12 % (0-9) Eosinophils (%) (Auto) 1 % (0-3) Basophils (%) (Auto) 0 % (0-3) Neutrophils # (Auto) 7.5 x10^3/uL (1.8-7.7) Lymphocytes # (Auto) 2.4 x10^3/uL (1.0-4.8) Monocytes # (Auto) 1.4 x10^3/uL (0.0-1.1) Eosinophils # (Auto) 0.2 x10^3/uL (0.0-0.7) Basophils # (Auto) 0.0 x10^3/uL (0.0-0.2) Sodium Level 133 mmol/L (136-145) Potassium Level 4.3 mmol/L (3.5-5.1) Chloride Level 99 mmol/L (98-107) Carbon Dioxide Level 23 mmol/L (21-32) Anion Gap 11 (6-14) Blood Urea Nitrogen 25 mg/dL (7-20) Creatinine 0.7 mg/dL (0.6-1.0) Estimated GFR (Cockcroft-Gault) 102.3 BUN/Creatinine Ratio 36 (6-20) Glucose Level 102 mg/dL (70-99) Calcium Level 8.4 mg/dL (8.5-10.1) Total Bilirubin 0.7 mg/dL (0.2-1.0) Aspartate Amino Transf (AST/SGOT) 18 U/L (15-37) Alanine Aminotransferase (ALT/SGPT) 14 U/L (14-59) Alkaline Phosphatase 61 U/L (46-116) Total Protein 5.5 g/dL (6.4-8.2) Albumin 1.9 g/dL (3.4-5.0) Albumin/Globulin Ratio 0.5 (1.0-1.7) Problem List Problems Medical Problems: (1) Atrial fibrillation with RVR Status: Acute (2) Nausea & vomiting Status: Acute Assessment/Plan advance to full liquids consider repeat CT?? TAMERA SAUCEDO MD Jan 08, 2020 13:07
--- NOTE | 2020-01-08 14:56 | NUR ---
paper weight based heparin dosing and monitoring manual given in regards to patients heparin drip doesn't match protocol in [facility]. discussed differences with Munir in pharmacy and was informed to follow [facility] and not paper manual for dosing.
[2020-01-08 15:00] VITALS: BP 131/82
[2020-01-08 19:40] VITALS: BP 138/91
[2020-01-08 22:42] VITALS: BP 111/80
[2020-01-09] MEDS: METOPROLOL TART IMMED RELEASE 50 MG TABLET. PO SCH ×4 (02:24→17:37)
[2020-01-09 03:59] VITALS: BP 133/69
[2020-01-09] MEDS: AMINO AC 3%/ELECTROLYTE/GLYCER 1,000 ML IV SCH ×2 (04:20→12:18)
[2020-01-09 05:57] LABS: BASO % 1 % (0-3); EOS # 0.2 x10^3/uL (0.0-0.7); EOS % 2 % (0-3); HEMATOCRIT 42.9 % (36.0-47.0); HEMOGLOBIN 13.2 g/dL (12.0-15.5); LYMPH # 2.4 x10^3/uL (1.0-4.8); LYMPH % 28 % (24-48); MEAN CORPUSCULAR HEMOGLOBIN 22 pg (25-35); MEAN CORPUSCULAR HGB CONC 31 g/dL (31-37); MEAN CORPUSCULAR VOLUME 71 fL (79-100); MONO # 1.1 x10^3/uL (0.0-1.1); MONO % 13 % (0-9); NEUT # 4.8 x10^3/uL (1.8-7.7); NEUT % 56 % (31-73); PLATELET COUNT 236 x10^3/uL (140-400); RED BLOOD COUNT 6.08 x10^6/uL (3.50-5.40); RED CELL DISTRIBUTION WIDTH 16.7 % (11.5-14.5); WHITE BLOOD COUNT 8.5 x10^3/uL (4.0-11.0)
[2020-01-09 06:00] LABS: ALBUMIN 1.8 g/dL (3.4-5.0); ALBUMIN/GLOBULIN RATIO 0.5 (1.0-1.7); CALCIUM 8.3 mg/dL (8.5-10.1); CREATININE 0.6 mg/dL (0.6-1.0); GFR 122.2; POTASSIUM 5.4 mmol/L (3.5-5.1); TOTAL BILIRUBIN 0.5 mg/dL (0.2-1.0); TOTAL PROTEIN 5.3 g/dL (6.4-8.2)
[2020-01-09 07:42] VITALS: BP 135/90
[2020-01-09] MEDS: OMEGA-3 FATTY ACIDS/FISH OIL 1,000 MG CAPSULE. PO SCH (08:18)
[2020-01-09] MEDS: LACTOBACILLUS RHAMNOSUS GG 1 CAPSULE. PO SCH ×2 (08:18→22:28)
[2020-01-09] MEDS: CHOLECALCIFEROL (VITAMIN D3) 1,000 UNIT TABLET PO SCH ×2 (08:18→22:29)
[2020-01-09] MEDS: POTASSIUM CHLORIDE 10 MEQ TABLET.ER. PO SCH (08:19)
[2020-01-09] MEDS: POLYETHYLENE GLYCOL 3350 17 GM PACKET. PO SCH (08:19)
[2020-01-09] MEDS: PANTOPRAZOLE IV PUSH 40 MG VIAL. IVP SCH (08:19)
--- NOTE | 2020-01-09 09:31 | PDOC ---
SURGICAL PROGRESS NOTE Subjective resting no abdominal complaints having stools, no blood Vital Signs Vital Signs Date Time Temp Pulse Resp B/P (MAP) Pulse Ox O2 Delivery O2 Flow Rate FiO2 01/09/20 08:18 99 135/90 01/09/20 07:42 98.2 18 99 Room Air 98.2 I&O Intake and Output 01/09/20 07:00 Intake Total 2518 ml Output Total 1750 ml Balance 768 ml Intake Oral 750 ml IV Total 1768 ml Output Urine Total 1750 ml # Bowel Movements 1 General: Alert, Oriented X3, Cooperative Abdomen: Soft, No tenderness Labs Laboratory Tests Test 01/07/20 18:00 01/08/20 04:00 01/09/20 04:56 Activated Partial Thromboplast Time 32 SEC (24-38) 39 SEC (24-38) 49 SEC (24-38) White Blood Count 11.4 x10^3/uL (4.0-11.0) 8.5 x10^3/uL (4.0-11.0) Red Blood Count 6.56 x10^6/uL (3.50-5.40) 6.08 x10^6/uL (3.50-5.40) Hemoglobin 14.4 g/dL (12.0-15.5) 13.2 g/dL (12.0-15.5) Hematocrit 46.1 % (36.0-47.0) 42.9 % (36.0-47.0) Mean Corpuscular Volume 70 fL (79-100) 71 fL (79-100) Mean Corpuscular Hemoglobin 22 pg (25-35) 22 pg (25-35) Mean Corpuscular Hemoglobin Concent 31 g/dL (31-37) 31 g/dL (31-37) Red Cell Distribution Width 16.1 % (11.5-14.5) 16.7 % (11.5-14.5) Platelet Count 254 x10^3/uL (140-400) 236 x10^3/uL (140-400) Neutrophils (%) (Auto) 65 % (31-73) 56 % (31-73) Lymphocytes (%) (Auto) 21 % (24-48) 28 % (24-48) Monocytes (%) (Auto) 12 % (0-9) 13 % (0-9) Eosinophils (%) (Auto) 1 % (0-3) 2 % (0-3) Basophils (%) (Auto) 0 % (0-3) 1 % (0-3) Neutrophils # (Auto) 7.5 x10^3/uL (1.8-7.7) 4.8 x10^3/uL (1.8-7.7) Lymphocytes # (Auto) 2.4 x10^3/uL (1.0-4.8) 2.4 x10^3/uL (1.0-4.8) Monocytes # (Auto) 1.4 x10^3/uL (0.0-1.1) 1.1 x10^3/uL (0.0-1.1) Eosinophils # (Auto) 0.2 x10^3/uL (0.0-0.7) 0.2 x10^3/uL (0.0-0.7) Basophils # (Auto) 0.0 x10^3/uL (0.0-0.2) 0.0 x10^3/uL (0.0-0.2) Sodium Level 133 mmol/L (136-145) 126 mmol/L (136-145) Potassium Level 4.3 mmol/L (3.5-5.1) 5.4 mmol/L (3.5-5.1) Chloride Level 99 mmol/L (98-107) 96 mmol/L (98-107) Carbon Dioxide Level 23 mmol/L (21-32) 24 mmol/L (21-32) Anion Gap 11 (6-14) 6 (6-14) Blood Urea Nitrogen 25 mg/dL (7-20) 20 mg/dL (7-20) Creatinine 0.7 mg/dL (0.6-1.0) 0.6 mg/dL (0.6-1.0) Estimated GFR (Cockcroft-Gault) 102.3 122.2 BUN/Creatinine Ratio 36 (6-20) 33 (6-20) Glucose Level 102 mg/dL (70-99) 105 mg/dL (70-99) Calcium Level 8.4 mg/dL (8.5-10.1) 8.3 mg/dL (8.5-10.1) Total Bilirubin 0.7 mg/dL (0.2-1.0) 0.5 mg/dL (0.2-1.0) Aspartate Amino Transf (AST/SGOT) 18 U/L (15-37) 20 U/L (15-37) Alanine Aminotransferase (ALT/SGPT) 14 U/L (14-59) 14 U/L (14-59) Alkaline Phosphatase 61 U/L (46-116) 53 U/L (46-116) Total Protein 5.5 g/dL (6.4-8.2) 5.3 g/dL (6.4-8.2) Albumin 1.9 g/dL (3.4-5.0) 1.8 g/dL (3.4-5.0) Albumin/Globulin Ratio 0.5 (1.0-1.7) 0.5 (1.0-1.7) Laboratory Tests Test 01/09/20 04:56 White Blood Count 8.5 x10^3/uL (4.0-11.0) Red Blood Count 6.08 x10^6/uL (3.50-5.40) Hemoglobin 13.2 g/dL (12.0-15.5) Hematocrit 42.9 % (36.0-47.0) Mean Corpuscular Volume 71 fL (79-100) Mean Corpuscular Hemoglobin 22 pg (25-35) Mean Corpuscular Hemoglobin Concent 31 g/dL (31-37) Red Cell Distribution Width 16.7 % (11.5-14.5) Platelet Count 236 x10^3/uL (140-400) Neutrophils (%) (Auto) 56 % (31-73) Lymphocytes (%) (Auto) 28 % (24-48) Monocytes (%) (Auto) 13 % (0-9) Eosinophils (%) (Auto) 2 % (0-3) Basophils (%) (Auto) 1 % (0-3) Neutrophils # (Auto) 4.8 x10^3/uL (1.8-7.7) Lymphocytes # (Auto) 2.4 x10^3/uL (1.0-4.8) Monocytes # (Auto) 1.1 x10^3/uL (0.0-1.1) Eosinophils # (Auto) 0.2 x10^3/uL (0.0-0.7) Basophils # (Auto) 0.0 x10^3/uL (0.0-0.2) Activated Partial Thromboplast Time 49 SEC (24-38) Sodium Level 126 mmol/L (136-145) Potassium Level 5.4 mmol/L (3.5-5.1) Chloride Level 96 mmol/L (98-107) Carbon Dioxide Level 24 mmol/L (21-32) Anion Gap 6 (6-14) Blood Urea Nitrogen 20 mg/dL (7-20) Creatinine 0.6 mg/dL (0.6-1.0) Estimated GFR (Cockcroft-Gault) 122.2 BUN/Creatinine Ratio 33 (6-20) Glucose Level 105 mg/dL (70-99) Calcium Level 8.3 mg/dL (8.5-10.1) Total Bilirubin 0.5 mg/dL (0.2-1.0) Aspartate Amino Transf (AST/SGOT) 20 U/L (15-37) Alanine Aminotransferase (ALT/SGPT) 14 U/L (14-59) Alkaline Phosphatase 53 U/L (46-116) Total Protein 5.3 g/dL (6.4-8.2) Albumin 1.8 g/dL (3.4-5.0) Albumin/Globulin Ratio 0.5 (1.0-1.7) Problem List Problems Medical Problems: (1) Atrial fibrillation with RVR Status: Acute (2) Nausea & vomiting Status: Acute Assessment/Plan stable ? repeat CT --will review with VÍCTOR Modi APRN Jan 09, 2020 09:31
--- NOTE | 2020-01-09 09:40 | PDOC ---
Subjective: Subjective: Feels much better. No abd pain. Tolerating diet. Stooling. Objective: Objective: Reviewed surgery note - ?repeat CT Vital Signs: Vital Signs Date Time Temp Pulse Resp B/P (MAP) Pulse Ox O2 Delivery O2 Flow Rate FiO2 01/09/20 08:18 99 135/90 01/09/20 07:42 98.2 18 99 Room Air 98.2 Labs: Laboratory Tests Test 01/09/20 04:56 White Blood Count 8.5 x10^3/uL Red Blood Count 6.08 x10^6/uL Hemoglobin 13.2 g/dL Hematocrit 42.9 % Mean Corpuscular Volume 71 fL Mean Corpuscular Hemoglobin 22 pg Mean Corpuscular Hemoglobin Concent 31 g/dL Red Cell Distribution Width 16.7 % Platelet Count 236 x10^3/uL Neutrophils (%) (Auto) 56 % Lymphocytes (%) (Auto) 28 % Monocytes (%) (Auto) 13 % Eosinophils (%) (Auto) 2 % Basophils (%) (Auto) 1 % Neutrophils # (Auto) 4.8 x10^3/uL Lymphocytes # (Auto) 2.4 x10^3/uL Monocytes # (Auto) 1.1 x10^3/uL Eosinophils # (Auto) 0.2 x10^3/uL Basophils # (Auto) 0.0 x10^3/uL Activated Partial Thromboplast Time 49 SEC Sodium Level 126 mmol/L Potassium Level 5.4 mmol/L Chloride Level 96 mmol/L Carbon Dioxide Level 24 mmol/L Anion Gap 6 Blood Urea Nitrogen 20 mg/dL Creatinine 0.6 mg/dL Estimated GFR (Cockcroft-Gault) 122.2 BUN/Creatinine Ratio 33 Glucose Level 105 mg/dL Calcium Level 8.3 mg/dL Total Bilirubin 0.5 mg/dL Aspartate Amino Transf (AST/SGOT) 20 U/L Alanine Aminotransferase (ALT/SGPT) 14 U/L Alkaline Phosphatase 53 U/L Total Protein 5.3 g/dL Albumin 1.8 g/dL Albumin/Globulin Ratio 0.5 Imaging: Abd US IMPRESSION: 1. Small volume of free fluid at the upper quadrant surrounding the liver and spleen. 2. Otherwise negative exam. PE: GEN: NAD, up in chair, has full liquid tray LUNGS: clear anteriorly HEART: irregular ABD: softer, non-tender NEURO/PSYCH: A & O 3 A/P: A Fib, abd pain, vomiting - resolved Iron deficiency, hyponatremia Abnormal CT - ?early ischemic bowel -- PO PPI, continue per surgery. Hemodynamically unstable?: No Is patient in severe pain?: No Is NPO status required?: No EMELIA GRAVES Jan 09, 2020 09:40
[2020-01-09 10:27] VITALS: BP 120/86
--- NOTE | 2020-01-09 10:54 | NUR ---
SS following up with discharge planning. SS discussed with pt RN. Pt currently on Heparin drip. No discharge needs noted at this time. SS will continue to follow for discharge planning.
--- NOTE | 2020-01-09 11:18 | PDOC ---
[facility] PROGRESS NOTE Chief Complaint Chief Complaint Abdominal pain - initially thought to be possibly ischemic bowel, possibly simply enteritis Moderate ascites AFIB RVR - rate improved, on cardizem and heparin GTTs Shortness of breath - likely related to above HTN - controlled on CCB infusion Hx of breast CA with radical right mastectomy/chemo radiation 2014 History of Present Illness History of Present Illness [id number] Patient seen and examined She states she's tolerating cream of wheat and feeling much better Still on heparin drip Discussed with RN Chart reviewed Ms Saab is a 64yo F w/ PMHx HTN, chronic lymphedema to right arm, diverticulosis, GERD, breast ca s/p right radical mastectomy and chemo/radiation therapy 2014, ex-smoker who p/w abdominal pain and nausea, vomiting, found in afib with RVR. GI, general surgery and Cardiology consulted. 01/04: Pain persists. CT abdomen pelvis read as possible early ischemic small bowel in RLQ and moderate ascites that may be hemorrhagic in nature. 01/05: Discussed the case with Dr. Sears. He feels this is not ischemic bowel as her white count is coming down and she feels a little better. Surgery is on hold for now, instead we will just continue IV antibiotics 01/06: Overnight had a small BM. Still with abdominal pain, but it is improving. Still with nausea equivalent to when she had her chemo. Still in afib on heparin GTT. Had 5 more BM and now her abdominal pain has resolved. No CP or SOB. Still in afib on heparin GTT. Plan: ADAT per GI and surgery recs Will await restarting eliquis until diet is fully resumed. Vitals/I&O Vitals/I&O: Vital Signs Date Time Temp Pulse Resp B/P (MAP) Pulse Ox O2 Delivery O2 Flow Rate FiO2 01/09/20 10:27 98.1 81 18 120/86 (97) 98 Room Air 98.1 I & O 01/08/20 01/08/20 01/09/20 15:00 23:00 07:00 Intake Total 450 ml 400 ml 1668 ml Output Total 700 ml 450 ml 600 ml Balance -250 ml -50 ml 1068 ml Physical Exam General: Alert, Oriented X3, Cooperative Heart: Other (irregularly irregular) Abdomen: Soft, No tenderness Extremities: No clubbing, No cyanosis Skin: No rashes, No breakdown Labs Labs: Laboratory Tests Test 01/09/20 04:56 White Blood Count 8.5 x10^3/uL (4.0-11.0) Red Blood Count 6.08 x10^6/uL (3.50-5.40) Hemoglobin 13.2 g/dL (12.0-15.5) Hematocrit 42.9 % (36.0-47.0) Mean Corpuscular Volume 71 fL (79-100) Mean Corpuscular Hemoglobin 22 pg (25-35) Mean Corpuscular Hemoglobin Concent 31 g/dL (31-37) Red Cell Distribution Width 16.7 % (11.5-14.5) Platelet Count 236 x10^3/uL (140-400) Neutrophils (%) (Auto) 56 % (31-73) Lymphocytes (%) (Auto) 28 % (24-48) Monocytes (%) (Auto) 13 % (0-9) Eosinophils (%) (Auto) 2 % (0-3) Basophils (%) (Auto) 1 % (0-3) Neutrophils # (Auto) 4.8 x10^3/uL (1.8-7.7) Lymphocytes # (Auto) 2.4 x10^3/uL (1.0-4.8) Monocytes # (Auto) 1.1 x10^3/uL (0.0-1.1) Eosinophils # (Auto) 0.2 x10^3/uL (0.0-0.7) Basophils # (Auto) 0.0 x10^3/uL (0.0-0.2) Activated Partial Thromboplast Time 49 SEC (24-38) Sodium Level 126 mmol/L (136-145) Potassium Level 5.4 mmol/L (3.5-5.1) Chloride Level 96 mmol/L (98-107) Carbon Dioxide Level 24 mmol/L (21-32) Anion Gap 6 (6-14) Blood Urea Nitrogen 20 mg/dL (7-20) Creatinine 0.6 mg/dL (0.6-1.0) Estimated GFR (Cockcroft-Gault) 122.2 BUN/Creatinine Ratio 33 (6-20) Glucose Level 105 mg/dL (70-99) Calcium Level 8.3 mg/dL (8.5-10.1) Total Bilirubin 0.5 mg/dL (0.2-1.0) Aspartate Amino Transf (AST/SGOT) 20 U/L (15-37) Alanine Aminotransferase (ALT/SGPT) 14 U/L (14-59) Alkaline Phosphatase 53 U/L (46-116) Total Protein 5.3 g/dL (6.4-8.2) Albumin 1.8 g/dL (3.4-5.0) Albumin/Globulin Ratio 0.5 (1.0-1.7) Assessment and Plan Assessmemt and Plan Problems Medical Problems: (1) Atrial fibrillation with RVR Status: Acute (2) Nausea & vomiting Status: Acute A. fib with RVR Abdominal pain (initially thought to be possibly ischemic bowel but I just talked to Dr. Sears he feels this is enteritis) 1. Breast cancer. 2. Mastectomy. 3. Hysterectomy. 4. Tubal ligation. 5. Colonoscopy. Plan IV antibiotics Considering changing heparin to Eliquis and Hope to discharge Negative chronotropic agents for rate control Home meds DVT prophylaxis Full code Cavazos diet Trend white count Full code Appreciate subspecialist input If we could change to Eliquis she could go home this evening if consultants agree Comment Review of Relevant I have reviewed the following items alondra (where applicable) has been applied. Medications: Current Medications Medications (Trade) Dose Ordered Sig/Amrit Route PRN Reason Start Time Stop Time Status Last Admin Dose Admin Metoprolol Tartrate (Lopressor) 50 mg Q6HRS PO 01/08/20 12:00 01/09/20 08:18 Hemodynamically unstable?: No Is patient in severe pain?: No Is NPO status required?: No SEJAL MCCLELLAN III DO Jan 09, 2020 11:18
--- NOTE | 2020-01-09 13:54 | PDOC ---
PROGRESS NOTES Subjective Subjective Patient seen and examined Objective Objective Vital Signs Date Time Temp Pulse Resp B/P (MAP) Pulse Ox O2 Delivery O2 Flow Rate FiO2 01/09/20 12:17 91 120/86 01/09/20 10:27 98.1 18 98 Room Air 98.1 Intake and Output 01/09/20 07:00 Intake Total 2518 ml Output Total 1750 ml Balance 768 ml Intake Oral 750 ml IV Total 1768 ml Output Urine Total 1750 ml # Bowel Movements 1 Physical Exam Abdomen: Normal bowel sounds Heart: Other (irregularly irregular) General: mild distress Lungs: Clear to auscultation Assessment Assessment Problems Medical Problems: (1) Atrial fibrillation with RVR Status: Acute (2) Nausea & vomiting Status: Acute 1. AFIB RVR: The patient's rate has significantly improved. She is now on oral beta blockers. We'll continue heparin overnight and possibly start oral anticoagulation tomorrow. Surgical service continues to follow the patient. 2. DERAS/fatigue: improved. CP free 3. HTN: controlled 4. Abdominal pain. Pain has improved. Vomiting has resolved. Being reviewed and followed by both GI and general surgery. Surgery on hold at this time. We'll continue to monitor. 5. Hx of breast CA with radical right mastectomy/chemo radiation 2014 Comment Review of Relevant I have reviewed the following items alondra (where applicable) has been applied. Labs Laboratory Tests Test 01/07/20 18:00 01/08/20 04:00 01/09/20 04:56 Activated Partial Thromboplast Time 32 SEC (24-38) 39 SEC (24-38) 49 SEC (24-38) White Blood Count 11.4 x10^3/uL (4.0-11.0) 8.5 x10^3/uL (4.0-11.0) Red Blood Count 6.56 x10^6/uL (3.50-5.40) 6.08 x10^6/uL (3.50-5.40) Hemoglobin 14.4 g/dL (12.0-15.5) 13.2 g/dL (12.0-15.5) Hematocrit 46.1 % (36.0-47.0) 42.9 % (36.0-47.0) Mean Corpuscular Volume 70 fL (79-100) 71 fL (79-100) Mean Corpuscular Hemoglobin 22 pg (25-35) 22 pg (25-35) Mean Corpuscular Hemoglobin Concent 31 g/dL (31-37) 31 g/dL (31-37) Red Cell Distribution Width 16.1 % (11.5-14.5) 16.7 % (11.5-14.5) Platelet Count 254 x10^3/uL (140-400) 236 x10^3/uL (140-400) Neutrophils (%) (Auto) 65 % (31-73) 56 % (31-73) Lymphocytes (%) (Auto) 21 % (24-48) 28 % (24-48) Monocytes (%) (Auto) 12 % (0-9) 13 % (0-9) Eosinophils (%) (Auto) 1 % (0-3) 2 % (0-3) Basophils (%) (Auto) 0 % (0-3) 1 % (0-3) Neutrophils # (Auto) 7.5 x10^3/uL (1.8-7.7) 4.8 x10^3/uL (1.8-7.7) Lymphocytes # (Auto) 2.4 x10^3/uL (1.0-4.8) 2.4 x10^3/uL (1.0-4.8) Monocytes # (Auto) 1.4 x10^3/uL (0.0-1.1) 1.1 x10^3/uL (0.0-1.1) Eosinophils # (Auto) 0.2 x10^3/uL (0.0-0.7) 0.2 x10^3/uL (0.0-0.7) Basophils # (Auto) 0.0 x10^3/uL (0.0-0.2) 0.0 x10^3/uL (0.0-0.2) Sodium Level 133 mmol/L (136-145) 126 mmol/L (136-145) Potassium Level 4.3 mmol/L (3.5-5.1) 5.4 mmol/L (3.5-5.1) Chloride Level 99 mmol/L (98-107) 96 mmol/L (98-107) Carbon Dioxide Level 23 mmol/L (21-32) 24 mmol/L (21-32) Anion Gap 11 (6-14) 6 (6-14) Blood Urea Nitrogen 25 mg/dL (7-20) 20 mg/dL (7-20) Creatinine 0.7 mg/dL (0.6-1.0) 0.6 mg/dL (0.6-1.0) Estimated GFR (Cockcroft-Gault) 102.3 122.2 BUN/Creatinine Ratio 36 (6-20) 33 (6-20) Glucose Level 102 mg/dL (70-99) 105 mg/dL (70-99) Calcium Level 8.4 mg/dL (8.5-10.1) 8.3 mg/dL (8.5-10.1) Total Bilirubin 0.7 mg/dL (0.2-1.0) 0.5 mg/dL (0.2-1.0) Aspartate Amino Transf (AST/SGOT) 18 U/L (15-37) 20 U/L (15-37) Alanine Aminotransferase (ALT/SGPT) 14 U/L (14-59) 14 U/L (14-59) Alkaline Phosphatase 61 U/L (46-116) 53 U/L (46-116) Total Protein 5.5 g/dL (6.4-8.2) 5.3 g/dL (6.4-8.2) Albumin 1.9 g/dL (3.4-5.0) 1.8 g/dL (3.4-5.0) Albumin/Globulin Ratio 0.5 (1.0-1.7) 0.5 (1.0-1.7) Laboratory Tests Test 01/09/20 04:56 White Blood Count 8.5 x10^3/uL (4.0-11.0) Red Blood Count 6.08 x10^6/uL (3.50-5.40) Hemoglobin 13.2 g/dL (12.0-15.5) Hematocrit 42.9 % (36.0-47.0) Mean Corpuscular Volume 71 fL (79-100) Mean Corpuscular Hemoglobin 22 pg (25-35) Mean Corpuscular Hemoglobin Concent 31 g/dL (31-37) Red Cell Distribution Width 16.7 % (11.5-14.5) Platelet Count 236 x10^3/uL (140-400) Neutrophils (%) (Auto) 56 % (31-73) Lymphocytes (%) (Auto) 28 % (24-48) Monocytes (%) (Auto) 13 % (0-9) Eosinophils (%) (Auto) 2 % (0-3) Basophils (%) (Auto) 1 % (0-3) Neutrophils # (Auto) 4.8 x10^3/uL (1.8-7.7) Lymphocytes # (Auto) 2.4 x10^3/uL (1.0-4.8) Monocytes # (Auto) 1.1 x10^3/uL (0.0-1.1) Eosinophils # (Auto) 0.2 x10^3/uL (0.0-0.7) Basophils # (Auto) 0.0 x10^3/uL (0.0-0.2) Activated Partial Thromboplast Time 49 SEC (24-38) Sodium Level 126 mmol/L (136-145) Potassium Level 5.4 mmol/L (3.5-5.1) Chloride Level 96 mmol/L (98-107) Carbon Dioxide Level 24 mmol/L (21-32) Anion Gap 6 (6-14) Blood Urea Nitrogen 20 mg/dL (7-20) Creatinine 0.6 mg/dL (0.6-1.0) Estimated GFR (Cockcroft-Gault) 122.2 BUN/Creatinine Ratio 33 (6-20) Glucose Level 105 mg/dL (70-99) Calcium Level 8.3 mg/dL (8.5-10.1) Total Bilirubin 0.5 mg/dL (0.2-1.0) Aspartate Amino Transf (AST/SGOT) 20 U/L (15-37) Alanine Aminotransferase (ALT/SGPT) 14 U/L (14-59) Alkaline Phosphatase 53 U/L (46-116) Total Protein 5.3 g/dL (6.4-8.2) Albumin 1.8 g/dL (3.4-5.0) Albumin/Globulin Ratio 0.5 (1.0-1.7) Medications Current Medications Sodium Chloride 1,000 ml @ 1,000 mls/hr 1X ONCE IV Last administered on 01/03/20at 21:52; Start 01/03/20 at 21:30; Stop 01/03/20 at 22:29; Status DC Ondansetron HCl (Zofran) 4 mg 1X ONCE IVP Last administered on 01/03/20at 21:53; Start 01/03/20 at 22:00; Stop 01/03/20 at 22:01; Status DC Multi-Ingredient Mouthwash/Gargle (Gi Cocktail) 20 ml 1X ONCE SWSW Last administered on 01/03/20at 21:52; Start 01/03/20 at 22:00; Stop 01/03/20 at 22:01; Status DC Diltiazem HCl (Cardizem Iv Push) 10 mg 1X ONCE IVP Last administered on 01/03/20at 21:54; Start 01/03/20 at 22:00; Stop 01/03/20 at 22:01; Status DC Morphine Sulfate (Morphine Sulfate) 2 mg 1X ONCE IV Last administered on 01/03/20at 22:21; Start 01/03/20 at 22:30; Stop 01/03/20 at 22:31; Status DC Diltiazem HCl 125 mg/Sodium Chloride 125 ml @ 5 mls/hr CONT PRN IV SEE I/O RECORD Last administered on 01/03/20at 22:34; Start 01/03/20 at 22:30; Stop 01/04/20 at 10:17; Status DC Ondansetron HCl (Zofran) 4 mg PRN Q8HRS PRN IV NAUSEA/VOMITING 1ST CHOICE Last administered on 01/04/20at 11:45; Start 01/03/20 at 22:30; Stop 01/04/20 at 16:53; Status DC Sodium Chloride 1,000 ml @ 75 mls/hr [id number] IV Last administered on 01/03/20at 23:51; Start 01/03/20 at 23:00; Stop 01/04/20 at 22:59; Status DC Fish Oil (Fish Oil) 1,000 mg DAILY PO Last administered on 01/09/20at 08:18; Start 01/04/20 at 10:00 Potassium Chloride (Klor-Con) 10 meq DAILY PO Last administered on 01/08/20at 09:58; Start 01/05/20 at 09:00 Vitamin D (Vitamin D3) 2,000 unit BID PO Last administered on 01/09/20at 08:18; Start 01/05/20 at 10:00 Cetirizine HCl (ZyrTEC) 10 mg DAILY PO ; Start 01/04/20 at 10:00; Stop 01/05/20 at 13:07; Status DC Pantoprazole Sodium (Protonix) 40 mg DAILYAC PO Last administered on 01/05/20at 09:20; Start 01/04/20 at 11:30; Stop 01/06/20 at 10:23; Status DC Triamterene/HCTZ (Maxzide 37.5/ 25mg) 1 tab DAILY PO ; Start 01/04/20 at 10:00; Stop 01/04/20 at 10:17; Status DC Magnesium Sulfate 50 ml @ 25 mls/hr 1X ONCE IV Last administered on 01/04/20at 11:05; Start 01/04/20 at 10:15; Stop 01/04/20 at 12:14; Status DC Metoprolol Tartrate (Lopressor) 25 mg BID PO Last administered on 01/05/20at 09:21; Start 01/04/20 at 21:00; Stop 01/05/20 at 16:51; Status DC Metoprolol Tartrate (Lopressor) 25 mg 1X ONCE PO Last administered on 01/04/20at 10:37; Start 01/04/20 at 10:15; Stop 01/04/20 at 10:32; Status DC Aspirin (Ecotrin) 325 mg 1X ONCE PO Last administered on 01/04/20at 10:37; Start 01/04/20 at 10:15; Stop 01/04/20 at 10:32; Status DC Metoprolol Tartrate (Lopressor Vial) 5 mg 1X ONCE IVP Last administered on 01/04/20at 11:44; Start 01/04/20 at 12:00; Stop 01/04/20 at 12:01; Status DC Non-Formulary Medication 1 ea DAILY PO Last administered on 01/09/20at 08:17; Start 01/04/20 at 11:00 Digoxin (Lanoxin) 500 mcg 1X ONCE IV Last administered on 01/04/20at 15:23; Start 01/04/20 at 15:15; Stop 01/04/20 at 15:16; Status DC Ondansetron HCl (Zofran) 4 mg PRN Q4HRS PRN IV NAUSEA/VOMITING 1ST CHOICE Last administered on 01/07/20at 12:00; Start 01/04/20 at 17:00 Prochlorperazine Edisylate (Compazine) 10 mg PRN Q6HRS PRN IM NAUSEA/VOMITING- 2ND CHOICE; Start 01/04/20 at 17:00; Stop 01/04/20 at 17:08; Status DC Apixaban (Eliquis) 5 mg BID PO Last administered on 01/05/20at 09:21; Start 01/04/20 at 21:00; Stop 01/05/20 at 14:56; Status DC Prochlorperazine Edisylate (Compazine) 10 mg PRN Q6HRS PRN IVP NAUSEA/VOMITING- 2ND CHOICE Last administered on 01/06/20at 01:46; Start 01/04/20 at 17:15 Diltiazem HCl 125 mg/Sodium Chloride 125 ml @ 5 mls/hr CONT PRN IV SEE I/O RECORD Last administered on 01/05/20at 06:24; Start 01/05/20 at 05:45 Metoprolol Tartrate (Lopressor Vial) 5 mg 1X ONCE IVP Last administered on 01/05/20at 15:16; Start 01/05/20 at 13:45; Stop 01/05/20 at 13:46; Status DC Amino Acids/ Glycerin/ Electrolytes 1,000 ml @ 80 mls/hr [id number] IV Last administered on 01/09/20at 12:18; Start 01/05/20 at 13:45 Levofloxacin/ Dextrose 100 ml @ 100 mls/hr Q24H IV Last administered on 01/08/20at 14:25; Start 01/05/20 at 14:00 Metronidazole 100 ml @ 100 mls/hr Q8HRS IV Last administered on 01/09/20at 06:32; Start 01/05/20 at 14:00 Heparin Sodium/ Dextrose 250 ml @ 0 mls/hr CONT PRN IV PER PROTOCOL Last administered on 01/07/20at 09:48; Start 01/05/20 at 15:00 Heparin Sodium (Porcine) (Heparin Sodium) 2,100 unit PRN Q6HRS PRN IV FOR PTT LESS THAN 24; Start 01/05/20 at 15:00 Apixaban (Eliquis) 5 mg BID PO ; Start 01/06/20 at 21:00; Stop 01/06/20 at 12:46; Status DC Metoprolol Tartrate (Lopressor Vial) 5 mg Q6HRS IVP ; Start 01/05/20 at 17:00; Stop 01/05/20 at 17:01; Status DC Metoprolol Tartrate (Lopressor Vial) 5 mg Q6HRS IVP Last administered on 01/07/20at 12:00; Start 01/05/20 at 18:00; Stop 01/07/20 at 16:30; Status DC Morphine Sulfate (Morphine Sulfate) 2 mg PRN Q2HR PRN IV PAIN Last administered on 01/06/20at 20:29; Start 01/05/20 at 23:45 Pantoprazole Sodium (PROTONIX VIAL for IV PUSH) 40 mg DAILYAC IVP Last administered on 01/09/20at 08:19; Start 01/06/20 at 11:30; Stop 01/09/20 at 09:40; Status DC Heparin Sodium/ Dextrose 250 ml @ 0 mls/hr CONT PRN IV SEE I/O RECORD; Start 01/06/20 at 12:45; Status UNV Info (Anti-Coagulation Monitoring By Pharmacy) 1 each PRN DAILY PRN MC SEE COMMENTS Last administered on 01/06/20at 12:57; Start 01/06/20 at 13:00 Lactobacillus Rhamnosus (Culturelle) 1 cap BID PO Last administered on 01/09/20at 08:18; Start 01/06/20 at 21:00 Polyethylene Glycol (miraLAX PACKET) 17 gm DAILY PO Last administered on 01/07/20at 12:01; Start 01/07/20 at 09:00 Metoprolol Tartrate (Lopressor) 25 mg Q6HRS PO Last administered on 01/08/20at 05:35; Start 01/07/20 at 17:00; Stop 01/08/20 at 11:07; Status DC Metoprolol Tartrate (Lopressor Vial) 5 mg PRN Q4HRS PRN IVP TACHYCARDIA Last administered on 01/07/20at 21:41; Start 01/07/20 at 16:30 Metoprolol Tartrate (Lopressor) 50 mg Q6HRS PO Last administered on 01/09/20at 12:17; Start 01/08/20 at 12:00 Pantoprazole Sodium (Protonix) 40 mg DAILYAC PO ; Start 01/10/20 at 07:30 Active Scripts Active Reported Klor-Con 10 (Potassium Chloride) 10 Meq Tablet.er 10 Meq PO DAILY Omeprazole 20 Mg Capsule.dr 20 Mg PO DAILY Fish Oil 1,000 Mg Capsule (Wilder-3 Fatty Acids/Fish Oil) 1 Each Capsule 1 Each PO DAILY Vitamin D (Cholecalciferol (Vitamin D3)) 2,000 Unit Capsule 2,000 Unit PO BID Claritin (Loratadine) 10 Mg Tablet 10 Mg PO DAILY Triamterene-Hctz 37.5-25 Mg Cp (Triamterene/Hydrochlorothiazid) 1 Each Capsule 1 Cap PO DAILY Vitals/I & O Vital Sign - Last 24 Hours 01/08/20 01/08/20 01/08/20 01/08/20 15:00 17:59 19:40 20:00 Temp 98.5 98.2 98.5 98.2 Pulse 99 120 103 Resp 18 18 B/P (MAP) 131/82 (98) 131/82 138/91 (107) Pulse Ox 98 97 O2 Delivery Room Air Room Air Room Air 01/08/20 01/09/20 01/09/20 01/09/20 22:42 02:24 03:59 07:42 Temp 97.6 98.0 98.2 97.6 98.0 98.2 Pulse 98 114 110 99 Resp 16 16 18 B/P (MAP) 111/80 (90) 111/80 133/69 (90) 135/90 (105) Pulse Ox 97 95 99 O2 Delivery Room Air Room Air Room Air 01/09/20 01/09/20 01/09/20 01/09/20 08:00 08:18 10:27 12:17 Temp 98.1 98.1 Pulse 99 81 91 Resp 18 B/P (MAP) 135/90 120/86 (97) 120/86 Pulse Ox 98 O2 Delivery Room Air Room Air Intake and Output 01/08/20 01/08/20 01/09/20 15:00 23:00 07:00 Intake Total 450 ml 400 ml 1668 ml Output Total 700 ml 450 ml 600 ml Balance -250 ml -50 ml 1068 ml Hemodynamically unstable?: No Is patient in severe pain?: No Is NPO status required?: No NEGRITA GARCIA MD Jan 09, 2020 13:54
[2020-01-09 14:32] VITALS: BP 119/96
[2020-01-09 19:20] VITALS: BP 124/93
[2020-01-09 22:45] VITALS: BP 153/103
[2020-01-10 03:10] VITALS: BP 130/88
[2020-01-10] MEDS: HEPARIN 25,000UTS/250ML PREMIX 250 ML IV PRN (04:32)
[2020-01-10] MEDS: AMINO AC 3%/ELECTROLYTE/GLYCER 1,000 ML IV SCH (04:36)
[2020-01-10] MEDS: METOPROLOL TART IMMED RELEASE 50 MG TABLET. PO SCH ×3 (05:56→09:40)
[2020-01-10 07:26] VITALS: BP 177/81
[2020-01-10] MEDS ORDERED: PANTOPRAZOLE 40 MG TABLET.DR. PO SCH (07:30)
[2020-01-10] MEDS: POLYETHYLENE GLYCOL 3350 17 GM PACKET. PO SCH (09:00)
--- NOTE | 2020-01-10 09:38 | PDOC ---
VÍCTOR EASON DRUM STENCILER 01/10/20 0938: SURGICAL PROGRESS NOTE Subjective no abdominal pain no n/v having stools Vital Signs Vital Signs Date Time Temp Pulse Resp B/P (MAP) Pulse Ox O2 Delivery O2 Flow Rate FiO2 01/10/20 07:26 98.1 100 20 177/81 (113) 97 Room Air 98.1 I&O Intake and Output 01/10/20 07:00 Intake Total 3430 ml Output Total 1100 ml Balance 2330 ml Intake Oral 1980 ml IV Total 1450 ml Output Urine Total 1100 ml General: Alert, Oriented X3, Cooperative Abdomen: Soft, No tenderness Labs Laboratory Tests Test 01/09/20 04:56 01/10/20 07:18 White Blood Count 8.5 x10^3/uL (4.0-11.0) Red Blood Count 6.08 x10^6/uL (3.50-5.40) Hemoglobin 13.2 g/dL (12.0-15.5) Hematocrit 42.9 % (36.0-47.0) Mean Corpuscular Volume 71 fL (79-100) Mean Corpuscular Hemoglobin 22 pg (25-35) Mean Corpuscular Hemoglobin Concent 31 g/dL (31-37) Red Cell Distribution Width 16.7 % (11.5-14.5) Platelet Count 236 x10^3/uL (140-400) Neutrophils (%) (Auto) 56 % (31-73) Lymphocytes (%) (Auto) 28 % (24-48) Monocytes (%) (Auto) 13 % (0-9) Eosinophils (%) (Auto) 2 % (0-3) Basophils (%) (Auto) 1 % (0-3) Neutrophils # (Auto) 4.8 x10^3/uL (1.8-7.7) Lymphocytes # (Auto) 2.4 x10^3/uL (1.0-4.8) Monocytes # (Auto) 1.1 x10^3/uL (0.0-1.1) Eosinophils # (Auto) 0.2 x10^3/uL (0.0-0.7) Basophils # (Auto) 0.0 x10^3/uL (0.0-0.2) Activated Partial Thromboplast Time 49 SEC (24-38) 39 SEC (24-38) Sodium Level 126 mmol/L (136-145) Potassium Level 5.4 mmol/L (3.5-5.1) Chloride Level 96 mmol/L (98-107) Carbon Dioxide Level 24 mmol/L (21-32) Anion Gap 6 (6-14) Blood Urea Nitrogen 20 mg/dL (7-20) Creatinine 0.6 mg/dL (0.6-1.0) Estimated GFR (Cockcroft-Gault) 122.2 BUN/Creatinine Ratio 33 (6-20) Glucose Level 105 mg/dL (70-99) Calcium Level 8.3 mg/dL (8.5-10.1) Total Bilirubin 0.5 mg/dL (0.2-1.0) Aspartate Amino Transf (AST/SGOT) 20 U/L (15-37) Alanine Aminotransferase (ALT/SGPT) 14 U/L (14-59) Alkaline Phosphatase 53 U/L (46-116) Total Protein 5.3 g/dL (6.4-8.2) Albumin 1.8 g/dL (3.4-5.0) Albumin/Globulin Ratio 0.5 (1.0-1.7) Laboratory Tests Test 01/10/20 07:18 Activated Partial Thromboplast Time 39 SEC (24-38) Problem List Problems Medical Problems: (1) Atrial fibrillation with RVR Status: Acute (2) Nausea & vomiting Status: Acute Assessment/Plan rec advancing diet, can dc from surgical pov if tolerating diet TAMERA SAUCEDO MD 01/10/20 1005: SURGICAL PROGRESS NOTE Assessment/Plan as above VÍCTOR EASON APRN Jan 10, 2020 09:38 TAMERA SAUCEDO MD Jan 10, 2020 10:05
[2020-01-10] MEDS: OMEGA-3 FATTY ACIDS/FISH OIL 1,000 MG CAPSULE. PO SCH (09:39)
[2020-01-10] MEDS: CHOLECALCIFEROL (VITAMIN D3) 1,000 UNIT TABLET PO SCH (09:39)
[2020-01-10] MEDS: LACTOBACILLUS RHAMNOSUS GG 1 CAPSULE. PO SCH (09:39)
[2020-01-10 10:22] VITALS: BP 157/110
--- NOTE | 2020-01-10 10:47 | PDOC ---
JESSICA JOSUE MEDICAL CASE MANAGER 01/10/20 1047: CARDIO Progress Notes Date and Time Date of Service 01/10/2020 Time of Evaluation 1020 Subjective Subjective: No Chest Pain, No shortness of breath, No Palpitations, Other (feels better, no more nausea or vomiting) Vitals Vitals Vital Signs Date Time Temp Pulse Resp B/P (MAP) Pulse Ox O2 Delivery O2 Flow Rate FiO2 01/10/20 10:22 97.5 111 20 157/110 (126) 94 Room Air 97.5 Weight Weight [ ] Input and Output Intake and Output Intake and Output 01/10/20 07:00 Intake Total 3430 ml Output Total 1100 ml Balance 2330 ml Intake Oral 1980 ml IV Total 1450 ml Output Urine Total 1100 ml Laboratory Labs Laboratory Tests Test 01/10/20 07:18 Activated Partial Thromboplast Time 39 SEC (24-38) Physical Exam HEENT: Neck Supple W Full Motion Chest: Symmetric LUNGS: Other (diminished bases) Heart: irregularly irregular (AFIB) Abdomen: Soft N/T Extremities: No Edema, No Calf Tenderness Neurology: alert, oriented, follow commands Assessment Assessment 1. AFIB RVR: rate remains 100-110. new onset. EF and WM nml 2. DERAS/fatigue: potentially from AFIB but ischemic is also part of the differential, CP free 3. HTN: controlled 4. Possible early ischemic bowel: symptom improved, no endoscopy or surgery planned. Potentially cardioembolic. 5. Metabolic syndrome Recommendations 1. DC heparin, resume eliquis. Continue with metoprolol tartrate 100 mg bid and start on cardizem 120 mg CD daily. Will plan for outpt CVN. If no further GI symptoms then will also arrange for outpt stress test. 2. If HR trend is controlled then may DC this afternoon. HBPM. Follow up with Dr. Ornelas as an outpt. NEGRITA ORNELAS MD 01/11/20 0926: CARDIO Progress Notes Assessment Assessment Patient seen and examined on 01/10/20. 1. AFIB. rate improved. On Eliquis. Normal EF. 2. DERAS/fatigue: potentially from AFIB CP free 3. HTN: controlled 4. Possible early ischemic bowel: symptom improved, no endoscopy or surgery planned. Potentially cardioembolic. 5. Metabolic syndrome JESSICA JOSUE APRN Jan 10, 2020 10:47 NEGRITA ORNELAS MD Jan 11, 2020 09:26
[2020-01-10 12:39] LABS: CALCIUM 8.4 mg/dL (8.5-10.1); CREATININE 0.6 mg/dL (0.6-1.0); GFR 122.2; POTASSIUM 4.2 mmol/L (3.5-5.1)
--- NOTE | 2020-01-10 12:42 | PDOC ---
Subjective: Subjective: Feeling better, really enjoying food for lunch. Objective: Objective: D/w cardiology re: Eliquis. Vital Signs: Vital Signs Date Time Temp Pulse Resp B/P (MAP) Pulse Ox O2 Delivery O2 Flow Rate FiO2 01/10/20 10:22 97.5 111 20 157/110 (126) 94 Room Air 97.5 Labs: Laboratory Tests Test 01/10/20 07:15 01/10/20 07:18 Sodium Level 134 mmol/L Potassium Level 4.2 mmol/L Chloride Level 100 mmol/L Carbon Dioxide Level 22 mmol/L Anion Gap 12 Blood Urea Nitrogen 15 mg/dL Creatinine 0.6 mg/dL Estimated GFR (Cockcroft-Gault) 122.2 Glucose Level 122 mg/dL Calcium Level 8.4 mg/dL Activated Partial Thromboplast Time 39 SEC PE: GEN: NAD, eating lunch LUNGS: CTAB HEART: irregular ABD: S/ND/NT NEURO/PSYCH: A & O 3 A/P: A Fib Iron deficiency, hyponatremia Abnormal CT - ?early ischemic bowel -- Improved - tolerating diet and stooling w/o abd pain. Ok for Eliquis per GI. Hemodynamically unstable?: No Is patient in severe pain?: No Is NPO status required?: No EMELIA GRAVES Jan 10, 2020 12:42
[2020-01-10] MEDS: POTASSIUM CHLORIDE 10 MEQ TABLET.ER. PO SCH (13:46)
[2020-01-10 14:34] VITALS: BP 127/70
[2020-01-10] MEDS ORDERED: APIX5TAB PO (15:13)
[2020-01-10] MEDS ORDERED: METO100T7 PO (15:14)
[2020-01-10] MEDS ORDERED: DILT120C99 PO (15:14)
[2020-01-10] MEDS ORDERED: METR-34 PO (15:30)
[2020-01-10] MEDS ORDERED: LEVO500T59 PO (15:31)
--- NOTE | 2020-01-10 16:20 | NUR ---
Discharge Note: AGNES BRAVO Discharge instructions and discharge home medications reviewed with Patient and a copy given. All questions have been answered and understanding verbalized. Extensive teaching given to patient regarding her plan of care moving forward with atrial fibrillation and her abdominal ailments. Also given her instruction on the medications that are new for her and the times in which she should take the medications.
[2020-01-10] MEDS ORDERED: METOPROLOL TART IMMED RELEASE 50 MG TABLET. PO SCH (21:00)
[2020-01-10] MEDS ORDERED: APIXABAN 5 MG TABLET. PO SCH (21:00)
--- NOTE | 2020-01-11 04:33 | DS ---
DATE OF DISCHARGE: 01/10/2020 ADMISSION DIAGNOSIS: Atrial fibrillation with rapid ventricular response and abdominal pain. DISCHARGE DIAGNOSES: Resolving atrial fibrillation with rapid ventricular response, resolving enteritis. CONSULTS: Cardiology and GI. HOSPITAL COURSE: The patient is a pleasant 64-year-old female who presented with abdominal pain and was noted to be in AFib with RVR. She was admitted. There was some concern she could have an ischemic bout. We did consult Dr. Sears of the General Surgery Service as well. I spoke with Dr. Sears, he felt like this was not an ischemic bout. We gave her IV antibiotics. We gave her rate control meds such as Cardizem and other negative chronotropic meds. We gave her anticoagulation. Basically, today when I saw and examined her, she was at her baseline. Heart tones were normal. Lungs were clear. Abdomen was soft. Extremities, no edema. She was tolerating her diet. We plan to discharge. DISPOSITION: Home. ACTIVITY: As tolerated. DIET: Low sodium. MEDICATIONS: Please see MRAD. TOTAL TIME: 31 minutes. SEJAL MCCLELLAN DO DR: ADAM/jaiden JOB#: [id number] / [id number]
== END 2020-01-10 16:49 | disposition home or self-care (01) | DRG 872 ==
LOC: ER 21:06 → 2 SOUTH 22:19 → 2 NORTH 01-07 16:44 → 2 SOUTH 01-07 17:00 → 2 NORTH 01-07 17:01
PROVIDERS: ADMIT Internal Medicine; ATTEND Internal Medicine
DX: A41.9 Sepsis, unspecified organism (principal); E87.1 Hypo-osmolality and hyponatremia; R18.8 Other ascites; I48.91 Unspecified atrial fibrillation; K21.9 Gastro-esophageal reflux disease without esophagitis; C50.919 Malignant neoplasm of unspecified site of unspecified female breast; E61.1 Iron deficiency; E88.81 Metabolic syndrome and other insulin resistance; I10 Essential (primary) hypertension; I25.10 Atherosclerotic heart disease of native coronary artery without angina pectoris; J30.9 Allergic rhinitis, unspecified; K57.90 Diverticulosis of intestine, part unspecified, without perforation or abscess without bleeding; K76.89 Other specified diseases of liver; Z82.49 Family history of ischemic heart disease and other diseases of the circulatory system; Z85.3 Personal history of malignant neoplasm of breast; Z86.73 Personal history of transient ischemic attack (TIA), and cerebral infarction without residual deficits; Z87.891 Personal history of nicotine dependence; Z90.11 Acquired absence of right breast and nipple; Z90.710 Acquired absence of both cervix and uterus; Z92.3 Personal history of irradiation; M19.90 Unspecified osteoarthritis, unspecified site; Z88.0 Allergy status to penicillin; Z88.8 Allergy status to other drugs, medicaments and biological substances; Z79.899 Other long term (current) drug therapy; Z92.21 Personal history of antineoplastic chemotherapy; Z98.51 Tubal ligation status; K52.9 Noninfective gastroenteritis and colitis, unspecified
CPT/HCPCS: 36415; 71045; 74176; 76700; 80048; 80053; 80061; 81001; 83036; 83540; 83550; 83605; 83690; 83735; 83880; 84443; 84484; 85007; 85025; 85027; 85610; 85730; 93005; 93306; 94799; 96361; 96365; 96375; 96376; C9113; J0780; J1160; J1644; J1956; J2270; J2405; J3475; J3490; J7030; 99285-25; G0378

== ENCOUNTER 2020-04-02 18:20 | Emergency (ER) | payer OTHER ==
[~2020-04-02] VITALS: Ht 167.6 cm; Wt 82.4 kg
[~2020-04-02 18:20] MED LIST changes: +APIX5TAB PO; +DILT120C99 PO; +LEVO500T59 PO; +METO100T7 PO; +METR-34 PO; +OMEP20CA16 PO; +POTA10TA12 PO
--- NOTE | 2020-04-02 19:26 | PHYS DOC ---
Past Medical History Past Medical History: A-Fib, Cancer, GERD, Hypertension Additional Past Medical Histor: BREAST CANCER W CHEMO/RAD/SURG. LYPHEDEMA Past Surgical History: Hysterectomy, Tubal ligation, Other Additional Past Surgical Histo: RIGHT MASECTOMY, COLONOSCOPY Smoking Status: Former Smoker Alcohol Use: None Drug Use: None General Adult EDM: Chief Complaint: MEDICAL CLEARANCE HPI: HPI: Patient is a 64 year old female who presents with complaint of lightheadedness and feeling like she could not breathe for about 5 minutes after taking her metoprolol earlier today. Patient states that she usually takes that medication with all of her other meds in the morning but states that because of the symptoms that she was having with it, she decided to take it at a different time and took it at about 2:30 PM. She states that shortly after taking it however she started to feel lightheadedness again and had the feeling like she could not breathe and felt like she was going to choke for about 5 minutes. She denies having had any swelling of her tongue or lips. She states that she believes that she had just gotten worked up over it. Currently she states that she is asymptomatic. [] Review of Systems: Review of Systems: Constitutional: Denies fever or chills. [] Respiratory: Denies cough or shortness of breath. [] Cardiovascular: Denies chest pain or edema. [] GI: Denies abdominal pain, nausea, vomiting or diarrhea. [] Integument: Denies rash. [] Neurologic: Denies headache, focal weakness or sensory changes. Reports lightheadedness. [] Heart Score: Risk Factors: Risk Factors: DM, Current or recent (<one month) smoker, HTN, HLP, family history of CAD, obesity. Risk Scores: Score 0 - 3: 2.5% MACE over next 6 weeks - Discharge Home Score 4 - 6: 20.3% MACE over next 6 weeks - Admit for Clinical Observation Score 7 - 10: 72.7% MACE over next 6 weeks - Early Invasive Strategies Allergies: Allergies: Allergies Coded Allergies Type Severity Reaction Last Updated Verified penicillin Allergy Severe Anaphylaxis 12/06/15 Yes pineapple Allergy Severe SWELLING IN MOUTH 12/06/15 Yes Physical Exam: PE: Constitutional: Well developed, well nourished, no acute distress, non-toxic appearance. [] Eyes: PERRLA, EOMI, conjunctiva normal, no discharge. [] Neck: Normal range of motion, no tenderness, supple, no stridor. [] Cardiovascular: Regular rate and rhythm [] Lungs & Thorax: Bilateral breath sounds clear to auscultation [] Neurologic: Alert and oriented X 3, no focal deficits noted. [] Current Patient Data: Vital Signs: Vital Signs Date Time Temp Pulse Resp B/P (MAP) Pulse Ox O2 Delivery O2 Flow Rate FiO2 04/02/20 19:07 97.6 89 18 118/116 (117) 98 Room Air 97.6 EKG: EKG: [] Radiology/Procedures: Radiology/Procedures: [] Course & Med Decision Making: Course & Med Decision Making Pertinent Labs and Imaging studies reviewed. (See chart for details) [] Dragon Disclaimer: Dragon Disclaimer: This electronic medical record was generated, in whole or in part, using a voice recognition dictation system. Departure Departure Impression: Primary Impression: Hypertension Qualified Codes: I10 - Essential (primary) hypertension Disposition: HOME, SELF-CARE Condition: STABLE Referrals: LEVI KEVIN DO (PCP) Patient Instructions: Hypertension Justicifation of Admission Dx: Justifications for Admission: Justification of Admission Dx: Comment: (Not applicable) AAKASH RIVAS Jr., DO Apr 02, 2020 19:26
[2020-04-02 19:35] VITALS: BP 147/104
== END 2020-04-02 19:35 | disposition home or self-care (01) ==
LOC: ER 18:20
DX: I10 Essential (primary) hypertension (principal); R42 Dizziness and giddiness; I48.20 Chronic atrial fibrillation, unspecified; K21.9 Gastro-esophageal reflux disease without esophagitis; Z85.9 Personal history of malignant neoplasm, unspecified; Z90.710 Acquired absence of both cervix and uterus; Z98.51 Tubal ligation status; Z98.890 Other specified postprocedural states; Z87.891 Personal history of nicotine dependence; Z88.0 Allergy status to penicillin; Z91.018 Allergy to other foods
CPT/HCPCS: 99281